=== PATIENT | male | born 1965 | race Caucasian/White ===

== ENCOUNTER 2019-05-30 08:47 | Emergency (ER) | payer MEDICARE, MEDICAID, SELFPAY ==
--- NOTE | 2019-05-30 08:48 | ED_ITS ---
Entered by Jess Olmedo, acting as scribe for Brock Bruce MD HPI - General Adult General: Chief complaint: Eye Problems Stated complaint: BLURRY VISION Time Seen by Provider: 05/30/19 08:48 Source: patient and EMS Mode of arrival: EMS Limitations: no limitations History of Present Illness: HPI narrative: 54 yo male presents with R vision problems. pt states last night he was at a auction and he got something in his eye. pt states his eye today has been blurry and it is painful to open. pt R eye is watery. pt denies any other symptoms at this time. complaint: R eye blurry Onset (ago): day(s) (last night) Location: eyes Radiation: non-radiation Severity: moderate Quality: burning Pain Consistency: constant Relieving factors: none Exacerbating factors: movement (of R eye) Associated symptoms: Reports no associated symptoms; Deny chest pain, dyspnea, headache(s), nausea, rash or vomiting Treatments prior to arrival: none Review of Systems Const: Denies: fever, chills, body aches or change in appetite ENMT: Denies: throat pain or dental pain Card: Denies: chest pain Resp: Denies: shortness of breath GI: Denies: abdominal pain, nausea, vomiting or diarrhea : Denies: painful urination Musc: Denies: neck pain or back pain Skin/Breast: Denies: rash Neuro: Denies: headache Psych: Denies: depression Kash/Lymph: Denies: easy bruising All/Imm: Denies: hives PFSH ED PFSH: Statuses (acute, chronic, etc) shown below reflect problem list status as previously entered and may not be historically accurate Medical History (Updated 05/30/19 @ 09:20 by Brock Bruce MD) Hypothyroidism, unspecified (Acute) Surgical History (Updated 05/27/19 @ 13:46 by Raymond Woo MD) History of esophagogastroduodenoscopy (EGD) (Acute) History of nasal septoplasty (Acute) History of vasectomy (Acute) Hx of decompressive lumbar laminectomy (Acute) Social History (Updated 05/27/19 @ 13:24 by JU Gutiérrez) Smoking and tobacco status: never smoked Alcohol intake: current Alcohol intake frequency: few times a month Housing: House Marital status: Single Number of children: 1 Current occupational status: disabled History of recent travel: No Physical Exam Const: COMMON NORMALS: no apparent distress, oriented x3 and healthy appearing HENMT: COMMON NORMALS: normocephalic and head/scalp atraumatic HEAD & SCALP: normocephalic and atraumatic Eye: OTHER: abrasion to right cornea under fluoroschein. occular pressure 18mmhg Neck/C-Spine: COMMON NORMALS: full ROM and supple Chest: COMMONS NORMALS: inspection of chest normal and palpation of chest normal Resp: COMMON NORMALS: normal respiratory effort, no retractions, no use of accessory muscles and clear to auscultation bilaterally AUSCULTATION: clear to auscultation bilaterally Cardio: COMMON NORMALS: regular rate, regular rhythm and no murmurs RATE: regular rate RHYTHM: regular rhythm GI: COMMON NORMALS: normal to inspection, nondistended, normoactive bowel sounds, soft to palpation, non-tender and no masses PALPATION: Yes soft Extremity: COMMON NORMALS: normal to inspection and full ROM Neuro: COMMON NORMALS: oriented x3, moves all extremities and no focal motor deficits Psych: COMMON NORMALS: mental status grossly normal, thought process normal and cooperative THOUGHT PROCESS: normal thought process Skin: COMMON NORMALS: no rashes or lesions noted and no wounds GENERAL SKIN EXAM: no rashes or lesions noted Course Vital Signs: Vital signs: Vital Signs Temperature 98.1 F 05/30/19 08:51 Pulse Rate 83 05/30/19 08:51 Respiratory Rate 18 05/30/19 08:51 Blood Pressure 131/89 05/30/19 08:51 Pulse Oximetry 99 05/30/19 08:51 MDM - General Adult MDM Narrative: Medical decision making narrative: Patient presents here with eye pain with likely abrasion. Patient's intraocular pressure here is normal. Pain is relieved with tetracaine. 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 He is to return if worsening. Discharge Plan Discharge Patient Disposition: Home, Self-Care Clinical Impression: Corneal abrasion Qualifiers: Encounter type: initial encounter Laterality: right Qualified Code(s): S05.01XA - Injury of conjunctiva and corneal abrasion without foreign body, right eye, initial encounter Condition: Stable Prescriptions: New erythromycin 5 mg/gram (0.5 %) ointment 1 applic ophthalmic (eye) Q6H 7 Days Qty: 3.5 RF: 0 No Action temazepam [Restoril] 30 mg capsule 30 mg PO .at bedtime Qty: 30 RF: 5 citalopram 40 mg tablet 40 mg PO QDAY Qty: 90 RF: 3 buspirone 15 mg tablet 10 mg PO BID RF: 0 metoprolol succinate 25 mg capsule,sprinkle,ER 24hr 25 mg PO QDAY RF: 0 tamsulosin 0.4 mg capsule 0.4 mg PO QDAY RF: 0 oxybutynin chloride 10 mg tablet extended release 24hr 10 mg PO QDAY RF: 0 aspirin 325 mg tablet 325 mg PO QDAY RF: 0 ibuprofen 600 mg tablet 600 mg PO Q6H PRNRF: 0 Discharge Orders: Discharge Order (Routine); Ordered 05/30/19 Ordered By: Brock Bruce Referrals: Raymond Woo MD [Primary Care Provider] - Jose Goldberg MD [Physician] - 4-7 days Discharge Diet: Advance as tolerated Discharge Activity: Resume usual activity Patient Instructions: Corneal Abrasion (ED) Coding Level of Care Code ED Combination Window Installer for Chg Fwd Exam Problem Focused The documentation recorded by the Honorio patel Bridget Annette, accurately reflects the service I personally performed and the decisions made by Janis giraldo Korby, MD May 30, 2019 08:47
[2019-05-30 08:51] VITALS: BP 131/89; PULSE 83; RESP 18; TEMP 36.7; O2SAT 99; BMI 26.0
[2019-05-30] MEDS: tetracaine 0.5% Op Soln 4 mL Btl 1 DROP EYE-BOTH (09:03)
[2019-05-30] MEDS: fluorescein 1 mg Strip EYE-BOTH (09:05)
--- NOTE | 2019-05-30 09:13 | PC.NURSE ---
Visual acuity test performed on patient. Patient can identify objects with left eye, right eye and then both eyes from 3-6 feet away. Patient identifies number of fingers correctly from 3 feet away with left, right, and both eyes. Left eye is reported as blurry and tests 20/70 without his glasses on. Right eye tests at 20/25 without his glasses. Both eyes test 20/25 without glasses on. Patient reports decrease in pain/discomfort in the left eye after drops are applied.
[2019-05-30 09:34] VITALS: BP 131/89; PULSE 72; RESP 16; TEMP 36.6; O2SAT 97
== END 2019-05-30 09:36 | disposition home or self-care (01) ==
PROVIDERS: Emergency Provider Emergency Medicine; Family Provider Internal Medicine; PCP Internal Medicine
DX: S05.01XA Injury of conjunctiva and corneal abrasion without foreign body, right eye, initial encounter (principal); X58.XXXA Exposure to other specified factors, initial encounter; Z79.82 Long term (current) use of aspirin
CPT/HCPCS: 99281; 99283

== ENCOUNTER 2019-10-21 09:01 | Day surgery (SDC) | payer MEDICARE, MEDICAID, SELFPAY ==
[2019-10-13 13:38] VITALS: BMI 23.1
[2019-10-21] VITALS (8 sets, daily range): BP systolic 113–129; BP diastolic 75–88; PULSE 70–77; RESP 17–24; TEMP 36.2–36.4; O2SAT 97–100
[2019-10-21] MEDS: sodium chloride 0.9% 1,000 ML 100 ML IV (09:25)
--- NOTE | 2019-10-21 09:46 | ANES.PREANE2 ---
Pre-Anesthetic Assessment Pre-Anesthetic Assessment: Height/Weight: Height 1.8 m Weight 75.296 kg Temp Pulse Resp BP Pulse Ox 97.1 F L 77 20 H 119/77 97 10/21/19 09:13 10/21/19 09:13 10/21/19 09:13 10/21/19 09:13 10/21/19 09:13 Preop Diagnosis: Left medial meniscal Proposed Procedure: Operation Date: 10/14/19 09:10 Proposed Procedures p Left knee arthroscopy with medial meniscus repair (39632) versus meniscectomy (31728) S83.207A(Left) - Jag Mohan MD Operation Date: 10/21/19 10:45 Proposed Procedures p Knee Arthroscopy with medial menisucus repair versus meniscectomy 37105 52679 S83.207A(Left) - Jag Mohan MD Familial anesthetic complications: None Was Beta Uriel taken within 24 hours: N/A Last intake: Intake Last Liquid Date 10/20/19 Last Liquid Time 23:55 Last Solid Date 10/20/19 Last Solid Time 23:55 Social: Social History: No alcohol and No tobacco Exam: Pre-Anes Outpt Exam: alert, oriented x 3, clear to auscultation bilaterally and regular rate & rhythm Airway: Cervical ROM: WNL MP: 2 Dentition: False Pulmonary: Pulmonary: None reported CV/HEM: CV/HEM: PR Comments: 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 is pacer dependent (I'd only live 10 minutes without one) - will place magnet : : None reported Hepatic: Hepatic: None reported GI: GI: None reported Metabolic: Metabolic: None reported Musc/skel: Musc/skel: Fibromyalgia Neuropsych: Neuropsych: None reported Anesthetic Plan: ASA status: 3 Anesthesia: General Risk of > 500 ml blood loss (7ml/kg in children): No Meds/Allergies Current Medications: Current Medications Generic Name Dose Route Start Last Admin Trade Name Freq PRN Reason Stop Dose Admin Sodium Chloride 1,000 mls @ 100 m ls/hr 10/21/19 08:45 10/21/19 09:25 Sodium Chloride 0.9% IV 10/22/19 08:44 100 mls/hr .Q10H ROSETTA Administration PFSH Anesthesia PFSH: Medical History (Updated 10/19/19 @ 09:47 by HOLDEN Mendiola) Erectile dysfunction Hypothyroidism, unspecified Lower urinary tract symptoms OAB (overactive bladder) Pacemaker Surgical History History of esophagogastroduodenoscopy (EGD) History of heart valve repair History of nasal septoplasty History of shoulder surgery History of tonsillectomy History of vasectomy Hx of decompressive lumbar laminectomy S/P appendectomy Family History Mother Tick fever Father Heart disease CHF (congestive heart failure) Other Diabetes Social History Smoking and tobacco status: never smoked Alcohol intake: current Alcohol intake frequency: few times a month Adopted: No Caregiver/support person: No Lives independently: Yes Housing: House Marital status: Single Number of children: 1 Current occupational status: disabled History of recent travel: No Current gender identity: Male Data Anesthesia Cardiac Studies: No Data to Display
--- NOTE | 2019-10-21 10:38 | W.PM.OPSUD ---
Surgery/Procedure H&P Update DATE OF PROCEDURE: October 21, 2019 DATE H&P PERFORMED: 10/06/19 PREOP DIAGNOSIS: Left medial meniscal PLANNED PROCEDURE: Operation Date: 10/14/19 09:10 Proposed Procedures p Left knee arthroscopy with medial meniscus repair (24436) versus meniscectomy (47657) S83.207A(Left) - Jag Mohan MD Operation Date: 10/21/19 10:45 Proposed Procedures p Knee Arthroscopy with medial menisucus repair versus meniscectomy 41344 68393 S83.207A(Left) - Jag Mohan MD
[2019-10-21] MEDS: clindamycin 600 MG/50 ML PREMIX 100 MG IV (10:41)
[2019-10-21] MEDS: morphine 4 mg/mL SDV 1 mL 8 MG XX (11:05)
--- NOTE | 2019-10-21 11:26 | PM.OP ---
Operative Report Date of procedure: October 21, 2019 Pre-op Diagnosis: Left medial meniscal Post-op diagnosis: other (Normal left knee) Post-op Findings: No meniscal tearing or significant chondromalacia Procedure Done: Diagnostic arthroscopy left knee Pathology: none sent Surgeon: Jag Mohan Anesthesia: General Estimated blood loss (mL): 5 Findings: Patient had no evidence of meniscal tearing. He had no significant chondromalacia. There was no damage to the internal stabilizing ligaments. Condition: stable Disposition: PACU Procedure: The patient was taken to the operating room and given a general anesthesia. He was prepped and draped in the supine position with a tourniquet on the left thigh. The knee was infiltrated with 30 cc of 0.5% Marcaine and 10 mg of morphine. The leg was prepped and draped in the usual fashion and a timeout performed. The knee was entered through standard inferior medial and inferior lateral portal. The diagnostic portion arthroscopy was accomplished essentially no abnormal findings were noted. Particular attention was paid to the abnormal meniscus per MRI and it was carefully probed and found to be free of tearing. The scope was removed. Portals were closed with 3-0 Prolene. Sterile dressings were applied. The patient was extubated taken recovery room in stable condition.
--- NOTE | 2019-10-21 11:30 | SUR.PHASEI ---
1124 PATIENT TO PACU. DENIES PAIN. RR EVEN AND UNLABORED. DRESSING TO LEFT KNEE INTACT WITH OLIVIA BANDAGE. LEFT PEDAL PULSE STRONG AND MARKED.
--- NOTE | 2019-10-21 11:50 | SUR.PHASEI ---
1146 PATIENT TO OPS. TALKATIVE, DENIES PAIN. TOLERATING ICE CHIPS. DRESSING INTACT TO LEFT KNEE.
--- NOTE | 2019-10-21 12:28 | PC.NURSE ---
PT STATED HE ALREADY HAD CRUTCHES AT HOME.
== END 2019-10-21 12:15 | disposition home or self-care (01) ==
LOC: OR 12:37
PROVIDERS: PCP Internal Medicine; Visit Provider Orthopaedic Surgery
PROC: (CPT 29870; principal; 2019-10-14 09:05)
DX: M25.562 Pain in left knee (principal); Z79.891 Long term (current) use of opiate analgesic; E03.9 Hypothyroidism, unspecified; Z95.0 Presence of cardiac pacemaker; M79.7 Fibromyalgia
CPT/HCPCS: 29870; 12345; 96365; J2001; J2270; J2704; J3010; J3490; J7030

== ENCOUNTER → 2019-12-09 12:58 | Outpatient (BNVA) | payer MEDICARE, MEDICAID, SELFPAY | PROVIDERS: PCP Internal Medicine; Visit Provider Urology | DX: R39.9 Unspecified symptoms and signs involving the genitourinary system (principal) | CPT/HCPCS: 81001 ==

== ENCOUNTER → 2020-05-11 15:02 | Outpatient (BNVA) | payer MEDICARE, MEDICAID, SELFPAY | PROVIDERS: Family Provider Internal Medicine; PCP Internal Medicine; Visit Provider Urology | DX: R39.9 Unspecified symptoms and signs involving the genitourinary system (principal); N40.1 Benign prostatic hyperplasia with lower urinary tract symptoms; N32.81 Overactive bladder; N52.9 Male erectile dysfunction, unspecified | CPT/HCPCS: 81003 ==

== ENCOUNTER → 2021-05-09 15:25 | Outpatient (BNVA) | payer MEDICARE, MEDICAID, SELFPAY | PROVIDERS: Family Provider Internal Medicine; PCP Internal Medicine; Visit Provider Urology | DX: N40.1 Benign prostatic hyperplasia with lower urinary tract symptoms (principal); R39.9 Unspecified symptoms and signs involving the genitourinary system; N52.9 Male erectile dysfunction, unspecified; N32.89 Other specified disorders of bladder | CPT/HCPCS: 81003 ==

== ENCOUNTER → 2021-07-26 14:22 | Outpatient (BNVA) | payer MEDICARE, MEDICAID, SELFPAY | PROVIDERS: Family Provider Internal Medicine; PCP Internal Medicine; Visit Provider Internal Medicine | DX: E03.9 Hypothyroidism, unspecified (principal); F32.9 Major depressive disorder, single episode, unspecified | CPT/HCPCS: 80053; 84443 ==

== ENCOUNTER → 2021-09-13 14:42 | Outpatient (BNVA) | payer MEDICARE, MEDICAID, SELFPAY | PROVIDERS: Family Provider Internal Medicine; PCP Internal Medicine; Visit Provider Internal Medicine Cardiovascular Disease | DX: I07.1 Rheumatic tricuspid insufficiency (principal); Z95.0 Presence of cardiac pacemaker; E03.9 Hypothyroidism, unspecified; Z98.890 Other specified postprocedural states; Z86.79 Personal history of other diseases of the circulatory system | CPT/HCPCS: 99213; 99214 ==

== ENCOUNTER → 2021-12-29 10:25 | Outpatient (BNVA) | payer MEDICARE, MEDICAID, SELFPAY | PROVIDERS: Family Provider Internal Medicine; PCP Internal Medicine; Visit Provider Internal Medicine Cardiovascular Disease | DX: Z45.010 Encounter for checking and testing of cardiac pacemaker pulse generator [battery] (principal) | CPT/HCPCS: 93280 ==

== ENCOUNTER 2022-01-03 10:47 | Emergency (ER) | payer MEDICARE, MEDICAID, SELFPAY ==
--- NOTE | 2022-01-03 10:55 | XR_ITS ---
WS: [id number] PA chest, 01/03/2022 Clinical Data: dyspnea Comparison: PA and lateral chest, 09/10/2019. Findings: No nodules, masses or effusions are seen. No pneumonia or pneumothorax is seen. There is el evation of the left diaphragm. There are midline sternotomy sutures and a 2-lead pacemaker unchanged in position. The aortic arch and descending thoracic aorta show mild tortuosity. There are small lisbeth tor leads on the chest wall. XR/XR chest 1V 42075 Impression: Atherosclerosis and permanent pacemaker.
[2022-01-03 11:34] VITALS: BP 107/70; PULSE 71; RESP 18; TEMP 37.7; O2SAT 96
--- NOTE | 2022-01-03 11:38 | ECG_ITS ---
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 Measurements Intervals [place] Rate: 74 P: CT: QRS: -79 QRSD: 165 T: 89 QT: 423 QTc: 470 Interpretive Statements ELECTRONIC VENTRICULAR PACEMAKER Compared to ECG 06/25/2017 17:54:03 Atrial-paced complex(es) or rhythm no longer present Electronically Signed On 01-03-2022 19:44:59 CDT by Taras Soares M.D. [id number]
[2022-01-03 12:11] LABS: Basophils % 0.2 %; Hematocrit 38.5 % (42.0-52.0); Hemoglobin 12.5 g/dL (11.7-16.6); Mean Corpuscular HGB Conc 32.5 g/dL (30.0-36.0); Mean Corpuscular Hemoglobin 32.8 pg (28.0-34.0); Monocytes # 0.6 10^3/uL (0.2-0.9); Monocytes % 9.2 %; Neutrophils # 4.57 10^3/uL (1.8-7.7); Neutrophils % 74.1 %; Nucleated Red Blood Cells % 0 %; Platelet Count 102 10^3/cmm (130-400); Red Blood Count 3.81 10^6/uL (4.1-5.3); Red Cell Distribution Width 12.7 % (12.1-15.1); White Blood Count 6.2 10^3/uL (4.0-10.0)
[2022-01-03 12:47] LABS: Blood Urea Nitrogen 13 mg/dL (6-20); Calcium 9.2 mg/dL (8.5-10.5); Carbon Dioxide 22 mmol/L (22-29); Chloride 103 mmol/L (98-107); Glomerular Filtration Rate 56.9 mL/min (90-130); Glucose 97 mg/dL (65-115); NT Pro B Type Natriuretic Pept 1570 pg/mL (0-125); Osmolality Calculated 284 mOsm/kg (285-295); Sodium 137 mmol/L (136-145)
[2022-01-03 12:49] LABS: Anion Gap 16.4 (5-19); Potassium 4.4 mmol/L (3.5-5.1)
--- NOTE | 2022-01-03 12:55 | ECG_ITS ---
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 Measurements Intervals [place] Rate: 71 P: IN: QRS: -78 QRSD: 173 T: 99 QT: 434 QTc: 473 Interpretive Statements ELECTRONIC VENTRICULAR PACEMAKER Compared to ECG 01/03/2022 11:38:06 No significant changes Electronically Signed On 01-03-2022 19:50:50 CDT by Taras Soares M.D. [id number]
[2022-01-03 13:48] LABS: Troponin(5th) Baseline 12 ng/L (0-15)
--- NOTE | 2022-01-03 14:00 | PC.NURSE ---
EPT PLACED ON CONTINUOUS NIBP, SPO2, AND CM
[2022-01-03 15:14] VITALS: BP 161/86; PULSE 80; O2SAT 96
[2022-01-03 15:17] LABS: Troponin 5 2HR 10.42 ng/L (0-15)
--- NOTE | 2022-01-03 15:21 | W.ED.GENADLT ---
Documented by User: Pedro Romo MD 01/18/22 23:51 HPI - General Adult General: Chief complaint: General Medical Stated complaint: SOB Time Seen by Provider: 01/03/22 15:21 History of Present Illness: Mr. Aquino is a 56-year-old gentleman with history of bioprosthetic valve and pacemaker placement who presents to the emergency department due to sore throat and generalized symptoms. Onset of symptoms was a few days ago and subacute. He endorses generalized malaise associate with sore throat. Initially with this was mild and only present with swallowing however is since progressed to be moderate to severe present at rest. He describes choking sensation when drinking water and a scratchy voice. Course has worsened. No other specific changes in health, exacerbating, or alleviating factors identified. Onset (ago): day(s) Severity: moderate Associated symptoms: Reports malaise, weakness and other Review of Systems General: Reports: 10 or more systems reviewed and unremarkable except in HPI and below Const: Reports: malaise ENMT: Denies: uvular edema PFSH ED PFSH: Medical History Acute meniscal tear of left knee Atrial flutter by electrocardiogram Erectile dysfunction Hypothyroidism, unspecified Insomnia, unspecified Lower urinary tract symptoms OAB (overactive bladder) Pacemaker Restless legs syndrome Tricuspid valve regurgitation Surgical History H/O arthroscopy of left knee History of esophagogastroduodenoscopy (EGD) History of heart valve repair History of nasal septoplasty History of shoulder surgery History of tonsillectomy History of vasectomy Hx of decompressive lumbar laminectomy S/P appendectomy S/P tricuspid valve replacement Family History Mother , at age 80 Tick fever Father , at age 87 Heart disease CHF (congestive heart failure) Other Diabetes Social History Smoking and tobacco status: never smoked Alcohol intake: current Alcohol intake frequency: few times a month Adopted: No Caregiver/support person: No Lives independently: Yes Housing: House Marital status: Number of children: 1 Current occupational status: disabled History of recent travel: No Current gender identity: Male Physical Exam Const: COMMON NORMALS: alert GENERAL APPEARANCE: cooperative and well developed HENMT: COMMON NORMALS: normocephalic and atraumatic HEAD & SCALP: normocephalic and atraumatic THROAT: uvula midline and posterior oropharynx abnormal erythema; no uvular edema Eye: COMMON NORMALS: conjunctivae normal CONJUNCTIVA: Yes conjunctivae normal SCLERA: sclerae normal Neck/C-Spine: COMMON NORMALS: supple GENERAL: Yes trachea midline Resp: COMMON NORMALS: normal respiratory effort and clear to auscultation bilaterally EFFORT & INSPECTION: Yes able to speak in complete sentences AUSCULTATION: clear to auscultation bilaterally Cardio: COMMON NORMALS: regular rate and regular rhythm RATE: regular rate RHYTHM: regular rhythm GI: COMMON NORMALS: Soft to palpation PALPATION: Yes Soft to palpation and No Tenderness to palpation present (GI) Extremity: GENERAL: Yes normal exam except as noted and No edema Neuro: COMMON NORMALS: moves all extremities SENSORIUM/ORIENTATION: Yes alert and No Orientation impaired Psych: COMMON NORMALS: mental status grossly normal and Normal thought process present THOUGHT PROCESS: Normal thought process present Course Vital Signs: Vital signs: Vital Signs Temperature 100 F H 01/03/22 11:34 Pulse Rate 84 01/03/22 17:14 Respiratory Rate 18 01/03/22 11:34 Blood Pressure 141/83 01/03/22 17:14 Pulse Oximetry 97 01/03/22 17:14 Oxygen Delivery Me thod 01/03/22 16:14 [facility] - General Adult Medical Decision Making 56-year-old gentleman presenting with sore throat and generalized symptoms. 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 EKG shows paced rhythm. Fluids, antiemetic, Decadron ordered. Labs notable for no leukocytosis, normal hemoglobin, mild thrombocytopenia without evidence of bleeding diathesis. Metabolic panel with normal electrolytes. COVID-positive. Given patient's reported severity of symptoms including difficulty tolerating oral secretions and voice change CT imaging ordered and pending at time of handoff to Dr. Bruce with likely plan for discharge. Patient presents for generalized weakness loss of difficulty swallowing he is COVID-positive likely causing his symptoms CT of his neck care is normal patient is stable for discharge he is to follow-up with PCP and return if worsening he understands agrees to plan. Medical Records I reviewed the patient's medical records. Lab Data I reviewed the patient's lab results. : 01/03/22 11:58 01/03/22 11:58 Radiology Impressions Chest X-Ray 01/03/22 10:55 Impression: Atherosclerosis and permanent pacemaker. Neck CT 01/03/22 16:56 IMPRESSION: No acute findings. Laboratory Results WBC 6.2 10^3/uL (4.0-10.0) 01/03/22 11:58 RBC 3.81 10^6/uL (4.1-5.3) L 01/03/22 11:58 Hgb 12.5 g/dL (11.7-16.6) 01/03/22 11:58 Hct 38.5 % (42.0-52.0) L 01/03/22 11:58 MCV 101.0 fl (80-94) H 01/03/22 11:58 MCH 32.8 pg (28.0-34.0) 01/03/22 11:58 MCHC 32.5 g/dL (30.0-36.0) 01/03/22 11:58 RDW 12.7 % (12.1-15.1) 01/03/22 11:58 Plt Count 102 10^3/cmm (130-400) L 01/03/22 11:58 MPV 12.0 fL (7.4-10.4) H 01/03/22 11:58 Neut % (Auto) 74.1 % 01/03/22 11:58 Lymph % (Auto) 16.0 % 01/03/22 11:58 Talbot % (Auto) 9.2 % 01/03/22 11:58 Eos % (Auto) 0.0 % 01/03/22 11:58 Baso % (Auto) 0.2 % 01/03/22 11:58 Neut # (Auto) 4.57 10^3/uL (1.8-7.7) 01/03/22 11:58 Lymph # (Auto) 1.0 10^3/uL (0.8-4.8) 01/03/22 11:58 Talbot # (Auto) 0.6 10^3/uL (0.2-0.9) 01/03/22 11:58 Eos # (Auto) 0.0 10^3/uL (0.0-0.8) 01/03/22 11:58 Baso # (Auto) 0.0 10^3/uL (0.0-0.1) 01/03/22 11:58 Nucleated RBC % (auto) 0 % 01/03/22 11:58 Nucleated RBCs # 0.0 /100WBC 01/03/22 11:58 Sodium 137 mmol/L (136-145) 01/03/22 11:58 Potassium 4.4 mmol/L (3.5-5.1) 01/03/22 11:58 Chloride 103 mmol/L (98-107) 01/03/22 11:58 Carbon Dioxide 22 mmol/L (22-29) 01/03/22 11:58 Anion Gap 16.4 (5-19) 01/03/22 11:58 BUN 13 mg/dL (6-20) 01/03/22 11:58 Creatinine 1.3 mg/dL (0.7-1.2) H 01/03/22 11:58 GFR Calculation 56.9 mL/min (90-130) L 01/03/22 11:58 Glucose 97 mg/dL (65-115) 01/03/22 11:58 Calculated Osmolality 284 mOsm/kg (285-295) L 01/03/22 11:58 Calcium 9.2 mg/dL (8.5-10.5) 01/03/22 11:58 Troponin T Baseline 12 ng/L (0-15) 01/03/22 11:58 Troponin T 120 Minute 10.42 ng/L (0-15) 01/03/22 14:18 Delta Troponin T -1.58 ABS# (0-10) L 01/03/22 14:18 Troponin T Hi Sens 6Hr 12.93 ng/L (0-15) 01/03/22 18:06 Troponin T Hi Sens 6Hr Delta 0.93 ng/L (0-12) 01/03/22 18:06 NT-Pro-B Natriuret Pep 1570 pg/mL (0-125) H 01/03/22 11:58 SARS-CoV-2 Ag (Rapid) Positive (Negative) H 01/03/22 16:20 Group A Strep Rapid Negative (Negative) 01/03/22 16:20 Discharge Plan Discharge Patient Disposition: Home Clinical Impression: COVID-19, Pharyngitis, Acute viral syndrome, Thrombocytopenia Condition: Stable Prescriptions: New ondansetron 4 mg tablet,disintegrating 4 mg PO Q6H PRN (Reason: nausea and vomiting) Qty: 14 0RF No Action carisoprodol 350 mg tablet 350 mg PO QID vitamin B complex [B Complex-Vitamin B12] Tablet 1 tab PO DAILY hydrocodone-acetaminophen 10-325 mg tablet 1 tab PO Q4H PRN (Reason: Pain) multivitamin Tablet 1 tab PO DAILY ascorbate calcium (vitamin C) 500 mg tablet 500 mg PO DAILY ibuprofen 600 mg tablet 600 mg PO BID metoprolol succinate 25 mg tablet extended release 24 hr 25 mg PO DAILY 90 Days Qty: 90 3RF aripiprazole [Abilify] 5 mg tablet 5 mg PO DAILY Qty: 90 3RF citalopram 40 mg tablet 40 mg PO BEDTIME Qty: 90 3RF Discharge Orders: Discharge ED (Routine); Ordered 01/03/22 Ordered By: Brock Bruce Referrals: Raymond Woo MD [Primary Care Provider] - Discharge Diet: Advance as tolerated Discharge Activity: Resume usual activity Patient Instructions: Pharyngitis (ED), COVID-19 (Coronavirus Disease 2019) (ED) Activity Restrictions/Additional Instructions: Thank you for visiting the emergency department. You were seen and evaluated for sore throat and generalized illness. You found to have COVID-19 which likely explains her symptoms. The treatment for this is largely symptomatic. You may use [id number] medications however please ensure that you are not exceed the the daily recommended dosage and please keep in mind that many namebrand medications contain the same active ingredients. Please self quarantine and use good hand hygiene and masks. Please follow-up with a primary care provider. Return to the emergency department for worsening symptoms or anything else that you are concerned about a feel needs emergency department evaluation. Coding Level of Care Code ED Taffy Puller for Magy Lee Documented by User: Brock Bruce MD 01/03/22 20:29 HPI - General Adult General: Chief complaint: General Medical Stated complaint: SOB Time Seen by Provider: 01/03/22 15:21 PFSH ED PFSH: Medical History Acute meniscal tear of left knee Atrial flutter by electrocardiogram Erectile dysfunction Hypothyroidism, unspecified Insomnia, unspecified Lower urinary tract symptoms OAB (overactive bladder) Pacemaker Restless legs syndrome Tricuspid valve regurgitation Surgical History H/O arthroscopy of left knee History of esophagogastroduodenoscopy (EGD) History of heart valve repair History of nasal septoplasty History of shoulder surgery History of tonsillectomy History of vasectomy Hx of decompressive lumbar laminectomy S/P appendectomy S/P tricuspid valve replacement Family History Mother , at age 80 Tick fever Father , at age 87 Heart disease CHF (congestive heart failure) Other Diabetes Social History Smoking and tobacco status: never smoked Alcohol intake: current Alcohol intake frequency: few times a month Adopted: No Caregiver/support person: No Lives independently: Yes Housing: House Marital status: Number of children: 1 Current occupational status: disabled History of recent travel: No Current gender identity: Male Course Vital Signs: Vital signs: Vital Signs Temperature 100 F H 01/03/22 11:34 Pulse Rate 84 01/03/22 17:14 Respiratory Rate 18 01/03/22 11:34 Blood Pressure 141/83 01/03/22 17:14 Pulse Oximetry 97 01/03/22 17:14 Oxygen Delivery Me thod 01/03/22 16:14 MDM - General Adult Medical Decision Making Patient presents for generalized weakness loss of difficulty swallowing he is COVID-positive likely causing his symptoms CT of his neck care is normal patient is stable for discharge he is to follow-up with PCP and return if worsening he understands agrees to plan. Lab Data : 01/03/22 11:58 01/03/22 11:58 Radiology Impressions Chest X-Ray 01/03/22 10:55 Impression: Atherosclerosis and permanent pacemaker. Neck CT 01/03/22 16:56 IMPRESSION: No acute findings. Laboratory Results WBC 6.2 10^3/uL (4.0-10.0) 01/03/22 11:58 RBC 3.81 10^6/uL (4.1-5.3) L 01/03/22 11:58 Hgb 12.5 g/dL (11.7-16.6) 01/03/22 11:58 Hct 38.5 % (42.0-52.0) L 01/03/22 11:58 MCV 101.0 fl (80-94) H 01/03/22 11:58 MCH 32.8 pg (28.0-34.0) 01/03/22 11:58 MCHC 32.5 g/dL (30.0-36.0) 01/03/22 11:58 RDW 12.7 % (12.1-15.1) 01/03/22 11:58 Plt Count 102 10^3/cmm (130-400) L 01/03/22 11:58 MPV 12.0 fL (7.4-10.4) H 01/03/22 11:58 Neut % (Auto) 74.1 % 01/03/22 11:58 Lymph % (Auto) 16.0 % 01/03/22 11:58 Talbot % (Auto) 9.2 % 01/03/22 11:58 Eos % (Auto) 0.0 % 01/03/22 11:58 Baso % (Auto) 0.2 % 01/03/22 11:58 Neut # (Auto) 4.57 10^3/uL (1.8-7.7) 01/03/22 11:58 Lymph # (Auto) 1.0 10^3/uL (0.8-4.8) 01/03/22 11:58 Talbot # (Auto) 0.6 10^3/uL (0.2-0.9) 01/03/22 11:58 Eos # (Auto) 0.0 10^3/uL (0.0-0.8) 01/03/22 11:58 Baso # (Auto) 0.0 10^3/uL (0.0-0.1) 01/03/22 11:58 Nucleated RBC % (auto) 0 % 01/03/22 11:58 Nucleated RBCs # 0.0 /100WBC 01/03/22 11:58 Sodium 137 mmol/L (136-145) 01/03/22 11:58 Potassium 4.4 mmol/L (3.5-5.1) 01/03/22 11:58 Chloride 103 mmol/L (98-107) 01/03/22 11:58 Carbon Dioxide 22 mmol/L (22-29) 01/03/22 11:58 Anion Gap 16.4 (5-19) 01/03/22 11:58 BUN 13 mg/dL (6-20) 01/03/22 11:58 Creatinine 1.3 mg/dL (0.7-1.2) H 01/03/22 11:58 GFR Calculation 56.9 mL/min (90-130) L 01/03/22 11:58 Glucose 97 mg/dL (65-115) 01/03/22 11:58 Calculated Osmolality 284 mOsm/kg (285-295) L 01/03/22 11:58 Calcium 9.2 mg/dL (8.5-10.5) 01/03/22 11:58 Troponin T Baseline 12 ng/L (0-15) 01/03/22 11:58 Troponin T 120 Minute 10.42 ng/L (0-15) 01/03/22 14:18 Delta Troponin T -1.58 ABS# (0-10) L 01/03/22 14:18 Troponin T Hi Sens 6Hr 12.93 ng/L (0-15) 01/03/22 18:06 Troponin T Hi Sens 6Hr Delta 0.93 ng/L (0-12) 01/03/22 18:06 NT-Pro-B Natriuret Pep 1570 pg/mL (0-125) H 01/03/22 11:58 SARS-CoV-2 Ag (Rapid) Positive (Negative) H 01/03/22 16:20 Group A Strep Rapid Negative (Negative) 01/03/22 16:20 Discharge Plan Discharge Patient Disposition: Home Clinical Impression: COVID-19, Pharyngitis, Acute viral syndrome, Thrombocytopenia Condition: Stable Prescriptions: New ondansetron 4 mg tablet,disintegrating 4 mg PO Q6H PRN (Reason: nausea and vomiting) Qty: 14 0RF No Action carisoprodol 350 mg tablet 350 mg PO QID vitamin B complex [B Complex-Vitamin B12] Tablet 1 tab PO DAILY hydrocodone-acetaminophen 10-325 mg tablet 1 tab PO Q4H PRN (Reason: Pain) multivitamin Tablet 1 tab PO DAILY ascorbate calcium (vitamin C) 500 mg tablet 500 mg PO DAILY ibuprofen 600 mg tablet 600 mg PO BID metoprolol succinate 25 mg tablet extended release 24 hr 25 mg PO DAILY 90 Days Qty: 90 3RF aripiprazole [Abilify] 5 mg tablet 5 mg PO DAILY Qty: 90 3RF citalopram 40 mg tablet 40 mg PO BEDTIME Qty: 90 3RF Discharge Orders: Discharge ED (Routine); Ordered 01/03/22 Ordered By: Brock Bruce Referrals: Raymond Woo MD [Primary Care Provider] - Discharge Diet: Advance as tolerated Discharge Activity: Resume usual activity Patient Instructions: Pharyngitis (ED), COVID-19 (Coronavirus Disease 2019) (ED) Activity Restrictions/Additional Instructions: Thank you for visiting the emergency department. You were seen and evaluated for sore throat and generalized illness. You found to have COVID-19 which likely explains her symptoms. The treatment for this is largely symptomatic. You may use [id number] medications however please ensure that you are not exceed the the daily recommended dosage and please keep in mind that many namebrand medications contain the same active ingredients. Please self quarantine and use good hand hygiene and masks. Please follow-up with a primary care provider. Return to the emergency department for worsening symptoms or anything else that you are concerned about a feel needs emergency department evaluation. Coding Level of Care Code ED Taffy Puller for Magy Lee
[2022-01-03 15:41] LABS: Troponin 5 2HR Delta -1.58 ABS# (0-10)
[2022-01-03] MEDS: dexamethasone 10 mg/mL INJ IVP (16:07)
[2022-01-03] MEDS: promethazine 25 mg/mL SDV 1 mL IM (16:07)
[2022-01-03] MEDS: lactated ringers 1,000 ML 999 ML IV (16:08)
[2022-01-03 16:14] VITALS: BP 131/88; PULSE 70; O2SAT 99
[2022-01-03 16:37] LABS: Rapid Strep A Test Negative (Negative)
[2022-01-03 16:50] LABS: SARS Covid-2 Antigen Positive (Negative)
--- NOTE | 2022-01-03 16:55 | ECG_ITS ---
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 Measurements Intervals [place] Rate: 72 P: MN: QRS: -76 QRSD: 173 T: 101 QT: 438 QTc: 480 Interpretive Statements ELECTRONIC VENTRICULAR PACEMAKER ABNORMAL RHYTHM ECG Compared to ECG 01/03/2022 15:50:11 No significant changes Electronically Signed On 01-03-2022 17:39:13 CDT by Carol Vega M.D. [email or web address]
--- NOTE | 2022-01-03 16:56 | CTR_ITS ---
PROCEDURE INFORMATION: Exam: CT Neck With Contrast Exam date and time: 01/03/2022 6:31 PM Age: 56 years old Clinical indication: Painful swallowing and throat pain; Prior surgery; Surgery date: 6+ months; Surgery type: Tonsils; Additional info: Sore throat, difficulty tolerating liquids TECHNIQUE: Imaging protocol: Computed tomography of the neck with contrast. Radiation optimization: All CT scans at this facility use at least one of these dose optimization techniques: automated exposure control; mA and/or kV adjustment per patient size (includes targeted exams where dose is matched to clinical indication); or iterative reconstruction. Contrast material: OMNIPAQUE 350; Contrast volume: 80 ml; Contrast route: INTRAVENOUS (IV); COMPARISON: CT cervical spine w con [id number] 03/20/2017 11:04 AM RADIATION DOSE METRICS: Total DLP (mGy-cm): 315.81 FINDINGS: Pharynx: Unremarkable. No significant tonsillar enlargement. Larynx: Unremarkable. Epiglottis is normal. Prevertebral and retropharyngeal spaces: Unremarkable. Salivary glands: Normal. Glands are normal in size. Thyroid: Normal. No enlarged or calcified nodules. Lymph nodes: Unremarkable. No lymphadenopathy. Trachea: Visualized trachea is unremarkable. Lungs: Unremarkable as visualized. Bones/joints: Unremarkable. No acute fracture. Soft tissues: Unremarkable. No significant soft tissue swelling. CT/CT neck w con* [id number] IMPRESSION: No acute findings.
[2022-01-03 17:14] VITALS: BP 141/83; PULSE 84; O2SAT 97
[2022-01-03 18:34] LABS: Troponin 5 6HR 12.93 ng/L (0-15)
[2022-01-03 18:58] LABS: Troponin 5 6HR Delta 0.93 ng/L (0-12)
== END 2022-01-03 21:44 | disposition home or self-care (01) ==
PROVIDERS: Emergency Medicine; Emergency Provider Emergency Medicine; PCP Internal Medicine
DX: U07.1 COVID-19 (principal); J02.9 Acute pharyngitis, unspecified; B34.9 Viral infection, unspecified; D69.6 Thrombocytopenia, unspecified; I07.1 Rheumatic tricuspid insufficiency; Z95.0 Presence of cardiac pacemaker; Z95.2 Presence of prosthetic heart valve
CPT/HCPCS: 70491; 71045; 80048; 83880; 84484; 85025; 87081; 87426; 87880; 93005; 96361; 96372; 96374; 99285; J1100; J2550; Q9967

== ENCOUNTER 2022-02-19 12:07 | Outpatient (CLI) | payer MEDICARE, MEDICAID, SELFPAY ==
--- NOTE | 2022-02-19 13:19 | XR_ITS ---
WS: [id number] Exam: XR shoulder LT min 2V* [id number] Date/Time of Exam: 02/19/2022 1:23 PM Reason For Exam: M25.512 - Pain in left shoulder No fracture or dislocation. A cortical defect seen along the greater tuberosity that may represent a Hill-Sachs lesion from previous dislocation. Mild DJD at the AC joint. A cardiac pacer superimposes t he left shoulder. XR/XR shoulder LT min 2V* [id number] IMPRESSION: 1. No fracture or dislocation. 2. Cortical defect along the greater tuberosity humerus that might represent a Hill-Sachs lesion secondary to prior dislocation. Mild degenerative changes.
== END 2022-02-19 12:08 | disposition home or self-care (01) ==
LOC: RAD 12:11
PROVIDERS: PCP Internal Medicine; Visit Provider Nurse Practitioner Family
DX: M25.512 Pain in left shoulder (principal)
CPT/HCPCS: 73030

== ENCOUNTER → 2022-04-13 10:12 | Outpatient (BNVA) | payer MEDICARE, MEDICAID, SELFPAY | PROVIDERS: PCP Internal Medicine; Visit Provider Internal Medicine Cardiovascular Disease | DX: Z45.010 Encounter for checking and testing of cardiac pacemaker pulse generator [battery] (principal) | CPT/HCPCS: 93280 ==

== ENCOUNTER 2022-04-19 12:22 | Outpatient (CLI) | payer MEDICARE, MEDICAID, SELFPAY ==
--- NOTE | 2022-04-19 12:00 | USCV_ITS ---
Benjamin Aquino Age: 56 Gender: M : 1965 Exam Date: 04/19/2022 12:54 Ordering Phys: Rubi Stephenson MD ([email or web address]) Technologist: Vito Palacios Exam Location: [facility] [place] Indication: TVR/AV repair/TR/ Aflutter, pacemaker revision BP: 143 / 97 HR: 70 Rhythm: Sinus Technical Quality: Adequate MEASUREMENTS (Male / Female) Normal Values 2D ECHO LV Diastolic Diameter PLAX 4.5 cm 4.2 - 5.9 / 3.9 - 5.3 cm LV Systolic Diameter PLAX 2.9 cm IVS Diastolic Thickness 0.7 cm 0.6 - 1.0 / 0.6 - 0.9 cm IVS Systolic Thickness 0.9 cm LVPW Diastolic Thickness 0.8 cm 0.6 - 1.0 / 0.6 - 0.9 cm LVPW Systolic Thickness 1.1 cm LVOT Diameter 2.0 cm LV Ejection Fraction 2D Teich 63.6 % LV Ejection Fraction MOD 2C 61.0 % LV Ejection Fraction 2C AL 61.3 % LA Diameter 3.1 cm LA Width 2.8 cm LA Height 4.7 cm RA Width 4.6 cm RA Height 6.3 cm Aorta at Sinotubular Diameter 2.6 cm IVC Diameter 1.8 cm M-MODE Aortic Annulus Diameter 3.0 cm LA Ao Ratio MM 1.0 MV E Point Septal Separation 0.3 cm DOPPLER AV Peak Velocity 117.5 cm/s LVOT Peak Velocity 97.0 cm/s AV Area Cont Eq vti 2.1 cm squared AV Area Cont Eq pk 2.6 cm squared MV Area PHT 5.4 cm squared Mitral E to A Ratio 1.4 MV E' Velocity 79.0 cm/s Mitral E to LV E' Septal Ratio 8.7 TR Peak Velocity 194.1 cm/s TR Peak Gradient 15.1 mmHg TR Mean Velocity 143.5 cm/s TR Mean Gradient 8.7 mmHg TR Velocity Time Integral 44.7 cm TV Peak E Velocity 209.0 cm/s Right Atrial Pressure 3.0 mmHg Pulmonary Artery Systolic Pressu 18.1 mmHg PV Peak Velocity 115.0 cm/s RV Acceleration Time 0.1 s RV Ejection Time 0.3 s RV AcT/ET 0.2 FINDINGS Left Ventricle Normal left ventricular size and systolic function, EF 56 %. Mild left ventricular hypertrophy. No regional wall motion abnormalities. Right Ventricle Possibly of normal size and ejection fraction.catheter/pacemaker wire in the right ventricular cavity. Right Atrium Moderately increased right atrial size. Catheter/pacemaker wire in the right atrial appendage. Left Atrium Normal left atrial size. Mitral Valve Thickened mitral valve. Mild-moderate mitral valve regurgitation. Aortic Valve Trace aortic valve regurgitation. No gross abnormalities noted Tricuspid Valve Bioprosthetic valve in the tricuspid position appears to be well-seated. Valve leaflets are thickened and stenotic. The peak gradient across the valve was 15 mmHg.[id number] tricuspid valve regurgitation. Pulmonic Valve No gross abnormalities noted Pericardium No pericardial effusion. Aorta Normal aortic annulus size. IVC Normal inferior vena cava. CONCLUSIONS Normal left ventricular size and systolic function, EF 56 %. Mild left ventricular hypertrophy. No regional wall motion abnormalities. Moderately increased right atrial size. Thickened mitral valve. Mild-moderate mitral valve regurgitation. Trace aortic valve regurgitation. No gross abnormalities noted. Bioprosthetic valve in the tricuspid position appears to be well-seated. Valve leaflets are thickened and stenotic. The peak gradient across the valve was 15 mmHg. [id number] tricuspid valve regurgitation. There is no pericardial effusion. There are no intracardiac masses. The pacemaker wire is noted in the right atrium right ventricle. Dr Rubi Stephenson MD FACC (Electronically Signed) Final Date: 19 April 2022 20:53 S
== END 2022-04-19 12:23 | disposition home or self-care (01) ==
PROVIDERS: PCP Internal Medicine; Visit Provider Internal Medicine Cardiovascular Disease
DX: I48.92 Unspecified atrial flutter (principal); Z98.890 Other specified postprocedural states; I08.3 Combined rheumatic disorders of mitral, aortic and tricuspid valves; Z45.010 Encounter for checking and testing of cardiac pacemaker pulse generator [battery]; Z95.2 Presence of prosthetic heart valve
CPT/HCPCS: 36415; 80048; 85025; 85610; 86850; 86900; 93306; 99215

== ENCOUNTER 2022-04-26 10:43 | Outpatient (CLI) | payer MEDICARE, MEDICAID, SELFPAY ==
[2022-04-26] VITALS (14 sets, daily range): BP systolic 111–139; BP diastolic 66–92; PULSE 60–71; RESP 14–24; TEMP 36.5–37; O2SAT 93–96; BMI 28.4
--- NOTE | 2022-04-26 12:56 | W.PM.OPSUD ---
Surgery/Procedure H&P Update DATE OF PROCEDURE: April 26, 2022 DATE H&P PERFORMED: 04/19/22 H&P UPDATE INFORMATION: I have reviewed H&P completed within last 30 days, I have examined patient prior to procedure and No changes to prior documentation PREOP DIAGNOSIS: PPM revision PRIMARY INDICATION FOR PROCEDURE: PPM revision. Heart block PLANNED PROCEDURE: Operation Date: 04/26/22 12:00 Proposed Procedures p [id number] Pacemaker Generator at end of life Z95.0,Z45.010,Z86.79,I07.1(Not Applicable) - Rubi Stephenson MD PATIENT REASSESSED PRIOR TO SEDATION, WITH NO CHANGE NOTED: Yes PHYSICAL EXAM: alert, oriented x 3, clear to auscultation bilaterally and regular rate & rhythm AIRWAY EVAL/ANESTHESIA PLAN: normal airway, see other exam findings, ASA III, Monitored Anesthesia, Local Anesthesia, Risks, benefits & alternatives of sedation and/or procedure discussed and Patient agrees to continue as planned
[2022-04-26] MEDS: clindamycin 900 MG/50 ML PREMIX 100 MG IV (17:59)
[2022-04-26] MEDS: HYDROcodone-acetaminophen 10-325 mg Tablet 1 TAB PO (18:08)
--- NOTE | 2022-04-26 19:46 | PC.NURSE ---
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 Covering service notified Dr holguin. Patient presents with post pacemaker generator change. left upper chest dressing and site is clean, dry, intact, no bleeding, swelling or hematoma noted around the upper chest. pt has mild tender to the touch to site,denies SOB. Orders reviewed & will continue to monitor. Patient and/or franchise sales representative oriented to environment, equipment, and informed of the following as found in the admission booklet: patient rights & responsibilities, visitor policy, hand and respiratory hygiene practice. Other education includes: activity restrictions on left upper arm,limited ROM, arm sling, iv antibiotics,pain control, call light use. Patient and/or franchise sales representative teaches back.
--- NOTE | 2022-04-26 20:48 | PM.OP ---
Operative Report Date of procedure: April 26, 2022 Pre-op diagnosis: Preop Diagnosis PPM revision Procedure: PROCEDURE: PACEMAKER REVISION PREOPERATIVE DIAGNOSIS: Pacemaker elective replacement indication. POSTOPERATIVE DIAGNOSIS: Pacemaker elective replacement indication. ESTIMATED BLOOD LOSS: Around less than 5 milliliters. COMPLICATIONS: None. BRIEF HISTORY: The patient is 56-year-old white male who had a permanent pacemaker implantation for high degree AV block/intermittent atrial flutter. The patient was found to have elective replacement indication, during routine office followup evaluation. For further management of patient's condition for the symptomatic bradycardia, the patient required a pacemaker revision. Patient required a dual-chamber pacemaker for symptom relief and the need for AV synchrony The procedure was explained to the patient in detail with the risks and benefits. The risks of bleeding, hematoma, vascular injury, infection and other concomitant complications were explained in detail, which the patient understood well and consented to proceed. PROCEDURES PERFORMED: 1. Explantation of the old pacemaker generator. 2. Implantation of the new generator. The patient brought to the [facility]. The left side of the neck and the subclavian area were cleaned and draped in a sterile fashion. 1% Xylocaine was used for local anesthetic agent. A 2 inch long incision was made just below the previous pacemaker scar. By sharp and blunt dissection, the pacemaker pocket was accessed. The old generator was delivered from the pocket. The generator was detached from the lead. The new Medtronic generator was attached to the lead. The pacemaker pocket was copiously irrigated with vancomycin solution. Complete hemostasis was achieved. The lead was positioned behind the generator and the generator was attached to the pectoralis fascia by suturing with 0 Surgilon. Sponge counts were confirmed. The pacemaker pocket was closed in layers. Skin was approximated using 4-0 Vicryl. EXPLANTED DEVICE: Pacemaker Generator: Brand: Advisa. Model number: -. Serial number: [id number]. Date of implant: 06/19/2016 IMPLANTED DEVICES: Ventricular Lead: Date of implantation: 01/22/2002 Model number: 5076/58 Serial number: [id number] Make: Medtronic. Atrial lead Date of implantation: 01/22/2002 Model number: 5076/48 Serial number: [id number] Make: Medtronic. Implanted Generator: Date of implantation : 04/26/2022 Brand: Isi Mccormick. Model number: W1 DR 01 Serial number: [id number] Make: Medtronic Stimulation Threshold: The ventricular sensing was noted obtained since patient was pacer dependent. Ventricular lead impedance was 494 ohms and the pacing threshold was 1.25 volts at 0.4 milliseconds. The atrial sensing was 2.6 millivolts. Atrial lead impedance was 399 ohms and the pacing threshold was noted obtained because the patient was in atrial flutter. The pacemaker was set for VVIR mode with an upper rate of 130 and a lower rate of 70. A pressure dressing was applied over the pacemaker site. The patient was transferred back to medical floor in stable condition. Sponge counts were correct.
[2022-04-26] MEDS: citalopram 20 mg Tablet 40 MG PO (21:15)
[2022-04-26] MEDS: ibuprofen 600 mg Tablet PO (21:15)
[2022-04-27] MEDS: clindamycin 900 MG/50 ML PREMIX 100 MG IV (02:34)
[2022-04-27] MEDS: sodium chloride 0.9% 1,000 ML 75 ML IV (02:35)
[2022-04-27 03:26] VITALS: BP 106/74; PULSE 70; RESP 17; TEMP 36.8; O2SAT 95
[2022-04-27 04:35] VITALS: BP 135/89; PULSE 70; RESP 20; O2SAT 92
[2022-04-27 05:57] VITALS: PULSE 70
--- NOTE | 2022-04-27 06:00 | ECG_ITS ---
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 Measurements Intervals [place] Rate: 69 P: 0 GA: 0 QRS: -80 QRSD: 178 T: 88 QT: 475 QTc: 512 Interpretive Statements ELECTRONIC VENTRICULAR PACEMAKER ABNORMAL RHYTHM ECG Compared to ECG 01/03/2022 17:38:21 No significant changes Electronically Signed On 04-27-2022 20:35:00 LEATHER TOOLER by Carol Vega M.D. [id number]
[2022-04-27 07:59] VITALS: BP 132/79; PULSE 70; RESP 23; TEMP 37; O2SAT 94
--- NOTE | 2022-04-27 08:13 | PC.OT ---
OT Eval Not Completed - Patient discharged before time of evaluation.
[2022-04-27] MEDS: metoprolol succinate ER (24 HR) 25 mg Tablet PO (08:51)
[2022-04-27] MEDS: ARIPiprazole 10 mg Tablet 5 MG PO (08:51)
[2022-04-27] MEDS: ibuprofen 600 mg Tablet PO (08:51)
[2022-04-27] MEDS: HYDROcodone-acetaminophen 10-325 mg Tablet 1 TAB PO (08:56)
--- NOTE | 2022-04-27 10:08 | P.PN_ITS ---
Subjective Subjective: This patient is admitted to hospital following the pacemaker revision for IV antibiotics and monitoring. Medications: Medication Review Details: Current Medications Hydrocodone Bitart/Acetaminophen (Hydrocodone-Acetaminophen 10-325 Mg Tablet) 1 tab PO Q4H PRN PRN Reason: Pain Last Admin: 04/27/22 08:56 Dose: 1 tab Aripiprazole (Aripiprazole 10 Mg Tablet) 5 mg PO DAILY [facility] Last Admin: 04/27/22 08:51 Dose: 5 mg Carisoprodol (Carisoprodol 350 Mg Tablet) 350 mg PO QID [facility] Last Admin: 04/27/22 08:51 Dose: 350 mg Citalopram Hydrobromide (Citalopram 20 Mg Tablet) 40 mg PO BEDTIME [facility] Last Admin: 04/26/22 21:15 Dose: 40 mg Sodium Chloride (Sodium Chloride 0.9%) 1,000 mls @ 75 mls/hr IV .[id number] [facility] Last Admin: 04/27/22 02:35 Dose: 75 mls/hr Ibuprofen (Ibuprofen 600 Mg Tablet) 600 mg PO BID [facility] Last Admin: 04/27/22 08:51 Dose: 600 mg Metoprolol Succinate (Metoprolol Succinate Er (24 Hr) 25 Mg Tablet) 25 mg PO DAILY [facility] Last Admin: 04/27/22 08:51 Dose: 25 mg Vitals/I&O/Wt Last Vital Signs Temp 98.6 F 04/27/22 07:59 Pulse 70 04/27/22 07:59 Resp 23 H 04/27/22 07:59 BP 132/79 04/27/22 07:59 Pulse Ox 94 04/27/22 07:59 O2 Del Method 04/27/22 03:26 04/26/22 04/27/22 04/27/22 22:59 06:59 14:59 Intake Total 770 / 770 240 / 1010 236 / 236 Output Total 940 / 940 480 / 1420 765 / 765 Balance -170 / -170 -240 / -410 -529 / -529 Weight last 48 hrs Weight 204 lb Physical Exam Narrative: GENERAL: The patient is alert and oriented times three. Not in any acute distress. HEENT: No significant pallor, icterus or lymphadenopathy.Oral cavity: There are no mucous membrane lesions. NECK: Trachea appears to be central. No masses noted. No JVD or thyromegaly appreciated. RESPIRATORY: Chest is symmetrical. No intercostals muscle retraction or any accessory muscle activation. There is no chest wall tenderness. Breath sounds are heard bilaterally. No rales or rhonchi heard. No evidence of any consolidation. The pacemaker site has no hematoma or bleeding. BREASTS: Deferred. HEART: The heart sounds are normal. No S3 or S4. No significant murmurs. No pericardial rub ABDOMEN: No vessel pulsations or distention. No tenderness. No organomegaly appreciated. Bowel sounds are normally heard. : Deferred. RECTAL: Deferred. LYMPHATIC: No lymphadenopathy noted in the neck. EXTREMITIES: No edema or cyanosis. No clubbing. MUSCULOSKELETAL: No acute joint deformities or swelling SKIN: There are no significant rashes or ecchymosis NEUROPSYCHIATRIC: The patient is alert and oriented x3. Appears to be in a good mood. No tremors or rigidity noted. Data Other Labs: Pacemaker interrogation was done this morning. The function was found to be appropriate. A&P Assessment and plan (1) Atrial flutter by electrocardiogram: Patient is not on any oral anticoagulation because of his low [id number]-YDCt scor e. (2) Pacemaker at end of battery life: Patient underwent a pacemaker revision yesterday. His pacemaker was interrogated this morning. Function was found to be appropriate. (3) H/O aortic valve repair: Has been doing okay with no specific symptoms. (4) Tricuspid valve regurgitation: Found to be moderate by echocardiogram. Continue the current management and follow-up schedule Plan Since the patient is remaining stable with no new symptoms, he is being discharged home today. He had the Occupational Therapy evaluation and recommendations. Post pacemaker instructions were given. Attestations Medical Necessity Statement*: Discharge home today Coding Level of Care Code Acute Service Crew Supervisor for g Fwd Diagnoses Atrial flutter by electrocardiogram I48.92 Pacemaker at end of battery life Z45.010 H/O aortic valve repair Z98.890; Z86.79 Tricuspid valve regurgitation I07.1
[2022-04-27 10:59] VITALS: BP 133/84; PULSE 70; TEMP 37.1; O2SAT 93
== END 2022-04-27 11:33 | disposition home or self-care (01) ==
LOC: CCL 15:11 → CSU 04-27 00:24
PROVIDERS: PCP Internal Medicine; Visit Provider Internal Medicine Cardiovascular Disease
DX: Z45.010 Encounter for checking and testing of cardiac pacemaker pulse generator [battery] (principal)
CPT/HCPCS: 33213; 36415; 93005; 96365; 96367; 97165; 99152; 99153; A4216; C1769; C1786; J2250; J3010; J3370; J3490; J7030; J7050

== ENCOUNTER → 2022-05-03 08:18 | Outpatient (BNVA) | payer MEDICARE, MEDICAID, SELFPAY | PROVIDERS: PCP Internal Medicine; Visit Provider Nurse Practitioner Family | DX: Z95.0 Presence of cardiac pacemaker (principal) | CPT/HCPCS: 93280; 99213 ==

== ENCOUNTER → 2022-05-10 13:26 | Outpatient (BNVA) | payer MEDICARE, MEDICAID, SELFPAY | PROVIDERS: PCP Internal Medicine; Visit Provider Urology | DX: N40.1 Benign prostatic hyperplasia with lower urinary tract symptoms (principal); N20.1 Calculus of ureter | CPT/HCPCS: 51741; 51798; 52000; 81003; 99214 ==

== ENCOUNTER → 2022-09-11 09:07 | Outpatient (BNVA) | payer MEDICARE, MEDICAID, SELFPAY | PROVIDERS: PCP Internal Medicine; Visit Provider Internal Medicine Cardiovascular Disease | DX: Z45.010 Encounter for checking and testing of cardiac pacemaker pulse generator [battery] (principal) | CPT/HCPCS: 93296 ==

== ENCOUNTER → 2022-09-12 13:39 | Outpatient (BNVA) | payer MEDICARE, MEDICAID, SELFPAY | PROVIDERS: Family Provider Internal Medicine; PCP Internal Medicine; Visit Provider Internal Medicine Cardiovascular Disease | DX: I07.1 Rheumatic tricuspid insufficiency (principal); E03.9 Hypothyroidism, unspecified; Z95.0 Presence of cardiac pacemaker; Z98.890 Other specified postprocedural states; Z86.79 Personal history of other diseases of the circulatory system; N40.1 Benign prostatic hyperplasia with lower urinary tract symptoms | CPT/HCPCS: 99214 ==

== ENCOUNTER → 2023-09-05 10:27 | Outpatient (BNVA) | payer MEDICARE, MEDICAID, SELFPAY | PROVIDERS: Family Provider Internal Medicine; PCP Internal Medicine; Visit Provider Nurse Practitioner Family | DX: Z95.0 Presence of cardiac pacemaker (principal); E03.9 Hypothyroidism, unspecified; I48.92 Unspecified atrial flutter | CPT/HCPCS: 99214 ==

== ENCOUNTER → 2024-09-03 10:52 | Outpatient (BNVA) | payer MEDICARE, MEDICAID, SELFPAY | PROVIDERS: Family Provider Internal Medicine; PCP Internal Medicine; Visit Provider Internal Medicine Cardiovascular Disease | DX: I07.1 Rheumatic tricuspid insufficiency (principal); I48.92 Unspecified atrial flutter; E03.9 Hypothyroidism, unspecified; Z95.0 Presence of cardiac pacemaker; Z95.2 Presence of prosthetic heart valve; Z86.79 Personal history of other diseases of the circulatory system; Z98.890 Other specified postprocedural states; R07.9 Chest pain, unspecified | CPT/HCPCS: 93005; 99214 ==

== ENCOUNTER → 2024-09-09 11:14 | Outpatient (BNVA) | payer MEDICARE, MEDICAID, SELFPAY | PROVIDERS: Family Provider Internal Medicine; PCP Internal Medicine; Visit Provider Internal Medicine Cardiovascular Disease | DX: Z45.018 Encounter for adjustment and management of other part of cardiac pacemaker (principal) | CPT/HCPCS: 93296 ==

== ENCOUNTER 2024-09-16 20:00 | Outpatient (CLI) | payer MEDICARE, MEDICAID, SELFPAY | END 2024-09-16 20:01 | disposition home or self-care (01) | LOC: SLEEP 23:19 | PROVIDERS: Family Provider Internal Medicine; PCP Internal Medicine; Referring Provider Nurse Practitioner Family; Visit Provider Internal Medicine Pulmonary Disease | DX: G47.33 Obstructive sleep apnea (adult) (pediatric) (principal) | CPT/HCPCS: 95810 ==

== ENCOUNTER 2024-10-06 07:39 | Outpatient (CLI) | payer MEDICARE, MEDICAID, SELFPAY ==
--- NOTE | 2024-10-06 07:41 | MM_ITS ---
WS: [id number] DIAGNOSTIC BILATERAL DIGITAL BREAST TOMOSYNTHESIS MAMMOGRAPHY WITH CAD RIGHT breast ultrasound, limited. HISTORY: BREAST MASS COMPARISON: None available. TECHNIQUE: Bilateral craniocaudad, mediolateral oblique, and mediolateral views are submitted with tomosynthesis and SM. RIGHT CC spot compression. Computer aided detection utilized. Breast composition: The breasts are almost entirely fatty. Increased attenuation and soft tissue RIGHT retroareolar region measures 3.2 x 2.3 x 4.0 cm. Dendritic extension through the soft tissues. This corresponds to the palpable abnormality. Similar but much smaller finding on the LEFT measures 3.2 x 1.1 x 1.9 cm. No nipple retraction. No suspicious calcifications. RIGHT breast ultrasound, limited. RIGHT: Infiltrating dendritic mass retroareolar measures 2.0 x 1.4 x 1.0 cm and is most consistent with gynecomastia. No increased vascularity. Smaller similar findings on the LEFT. MM/MM diag BI tomosynthesis [id number] IMPRESSION: BI-RADS: 2 - Benign. FOLLOW UP: See Report Bilateral gynecomastia, RIGHT greater than LEFT. No imaging follow-up necessary .
--- NOTE | 2024-10-06 07:45 | USCV_ITS ---
Benjamin Aquino Age: 59 Gender: M : 1965 Exam Date: 10/06/2024 08:02 Ordering Phys: Rubi Stephenson MD ([email or web address]) Technologist: RADHA Exam Location: [facility] [place] Indication: TR BP: 114 / 76 HR: 68 Rhythm: Sinus Technical Quality: Adequate MEASUREMENTS (Male / Female) Normal Values 2D ECHO LV Diastolic Diameter PLAX 4.5 cm 4.2 - 5.9 / 3.9 - 5.3 cm IVS Diastolic Thickness 1.0 cm 0.6 - 1.0 / 0.6 - 0.9 cm IVS Systolic Thickness 1.7 cm LVPW Diastolic Thickness 1.3 cm 0.6 - 1.0 / 0.6 - 0.9 cm LVPW Systolic Thickness 1.5 cm LVOT Diameter 2.0 cm LV Ejection Fraction 2D Teich 60.1 % LV Ejection Fraction MOD 4C 58.5 % LV Ejection Fraction MOD 2C 59.0 % LV Ejection Fraction 2C AL 61.9 % LA Diameter 3.2 cm RA Systolic Volume 4C AL 94.0 ml RA Systolic Volume 4C MOD 88.4 ml Aorta at Sinotubular Diameter 2.7 cm IVC Diameter 3.0 cm M-MODE LA Ao Ratio MM 1.2 AV Cusp Separation MM 1.6 cm DOPPLER AV Peak Velocity 102.0 cm/s LVOT Peak Velocity 89.0 cm/s AV Area Cont Eq vti 2.7 cm squared AV Area Cont Eq pk 2.6 cm squared MV Peak Velocity 125.0 cm/s MV Area PHT 3.3 cm squared Mitral E to A Ratio 3.4 TR Peak Velocity 155.0 cm/s TR Peak Gradient 9.6 mmHg TV Peak E Velocity 236.0 cm/s PV Peak Velocity 141.0 cm/s FINDINGS Left Ventricle Normal left ventricular size and systolic function, EF 59%.. No gross wall motion abnormalities. Right Ventricle Normal RV size and systolic function Right Atrium Markedly dilated right atrium Left Atrium Mildly dilated left atrium Mitral Valve Moderate mitral valve regurgitation. Aortic Valve Slightly thickened aortic valve Tricuspid Valve ? Bioprosthetic valve the tricuspid position. The peak velocity at the tricuspid valve was 2.36 m/s. The peak gradient was 22 mmHg. Features suggesting possibly severe tricuspid valve stenosis. Mild tricuspid valve regurgitation. Pulmonic Valve Mild pulmonary valve regurgitation. Pericardium Normal pericardium without effusion. Aorta Normal aortic annulus size. IVC Dilated inferior vena cava measuring 3.0 cm in diam. normal respiratory variation. CONCLUSIONS Normal left ventricular size and systolic function, EF 59%.. No gross wall motion abnormalities. Possible bioprosthetic valve at the tricuspid position. Features suggesting possible moderate to severe tricuspid valve stenosis. Peak gradient of 22 mmHg Mild pulmonary valve regurgitation. Mild tricuspid valve regurgitation. Normal RV size and systolic function There is no pericardial effusion. There are no intracardiac masses. Compared to the study from 04/19/2022, there is worsening of the gradient across the tricuspid valve The tricuspid valve Doppler studies need to be repeated Dr Rubi Stephenson MD FACC (Electronically Signed) Final Date: 12 October 2024 20:56 S
== END 2024-10-06 07:40 | disposition home or self-care (01) ==
LOC: RAD 07:40
PROVIDERS: Family Provider Internal Medicine; PCP Internal Medicine; Visit Provider Internal Medicine
DX: I07.1 Rheumatic tricuspid insufficiency (principal); N62 Hypertrophy of breast; Z98.890 Other specified postprocedural states; Z86.79 Personal history of other diseases of the circulatory system; I34.0 Nonrheumatic mitral (valve) insufficiency; Z96.89 Presence of other specified functional implants; Z95.4 Presence of other heart-valve replacement; R93.1 Abnormal findings on diagnostic imaging of heart and coronary circulation; I37.1 Nonrheumatic pulmonary valve insufficiency; R92.313 Mammographic fatty tissue density, bilateral breasts
CPT/HCPCS: 76642; 77062; 93306; G0279

== ENCOUNTER 2024-12-03 13:36 | Outpatient (CLI) | payer MEDICARE, MEDICAID, SELFPAY | END 2024-12-03 13:37 | disposition home or self-care (01) | LOC: SLEEP 13:38 | PROVIDERS: Family Provider Internal Medicine; PCP Internal Medicine; Visit Provider Internal Medicine Pulmonary Disease | DX: G47.33 Obstructive sleep apnea (adult) (pediatric) (principal) | CPT/HCPCS: G0399 ==

== ENCOUNTER 2025-01-13 08:34 | Observation (INO) | payer MEDICARE, MEDICAID, SELFPAY ==
--- OUTSIDE RECORDS SUMMARY | 2025-01-05 09:00 | XMS_ITS ---
Author Organization [facility] Address [address] [place] [address] Care Team Providers Care Oncology Rep Name Role Phone Moe Woo Primary Care Provider [phone] Allergies Allergen (clinical drug ingredient) Drug/Non Drug Allergy documented on EMR Reaction Allergy Type Onset Date Status erythromycin Erythromycin Base Unknown Drug Allergy Active Influenza Virus Vaccine Live Unknown Drug Allergy Active naproxen Naproxen Unknown Drug Allergy Active isotretinoin Isotretinoin Unknown Drug Allergy A ctive nefazodone Nefazodone Unknown Drug Allergy Activ e Penicillin Unknown Drug Allergy Active REASON FOR VISIT AWV Medications Medication SIG (Take, Route, Frequency, Duration) Notes Start Date End Date Status tiZANidine HCl 4 MG Capsule 1 capsule at bedtime as needed Orally daily; Duration: 30 days 01/04/2025 Active HYDROcodone-Acetaminophen 10-325 MG Tablet 1 tablet as needed Orally every 6 hrs Not-Taking Solifenacin Succinate 5 mg Tablet TAKE ONE TABLET BY MOUTH EVERY DAY; Duration: 30 Not-Taking Buprenorphine HCl-Naloxone HCl 2-0.5 MG Tablet Sublingual 1 Sublingual bid; Duration: 30 days 01/04/2025 05/04/2025 Active Ibuprofen 600 MG Tablet 1 tablet with fo od or milk as needed Orally Three times a day Not-Taking Myrbetriq 50 mg Tablet Extended Release 24 Hour TAKE ONE TABLET BY MOUTH ONCE DAILY; Duration: 30 Not-Taking Vitamin C 500 MG Capsule as directed Orally Not-Taking Vitamin B Complex - Capsule as directed Orally Not-Takin g Ondansetron 4 MG Tablet Disintegrating 1 tablet on the tongue and allow to dissolve Orally Once a day Not-Taking predniSONE 20 MG Tablet 1 tablet with fo od or milk Orally Once a day; Duration: 7 days 12/09/2024 Not-Taking Carisoprodol 350 MG Tablet 1 tablet as needed Orally Four times a day Not-Taking Solifenacin Succinate 5 MG Tablet 1 tablet Orally Once a day; Duration: 90 days 12/23/2024 Active ARIPiprazole 5 mg Tablet TAKE ONE TABLET BY MOUTH EVERY DAY; Duration: 28 Active Myrbetriq 50 MG Tablet Extended Release 24 Hour 1 tablet Orally Once a day; Duration: 90 days 12/23/2024 Active Belsomra 20 MG Tablet 1 tablet at bedtim e as needed Orally Once a day; Duration: 30 days 09/22/2024 02/19/2025 Active Levothyroxine Sodium 25 mcg Tablet TAKE ONE TABLET BY MOUTH EVERY MORNING ON a EMPTY stomach; Duration: 30 Active Furosemide 20 MG Tablet TAKE 1 TABLET BY MOUTH ONCE DAILY; Duration: 30 Active Metoprolol Succinate ER 25 MG Tablet Extended Release 24 Hour 1 tablet Orally Once a day Active Citalopram Hydrobromide 40 mg Tablet TAKE ONE TABLET BY MOUTH At Bedtime; Duration: 30 Active Tamsulosin HCl 0.4 mg Capsule TAKE ONE CAPSULE BY MOUTH TWICE DAILY; Duration: 30 Active Social History Tobacco Use: Social History Observation Description Date Details (start date - stop date) Never Smoker NA - NA Social History Depression Screening Social Info Question Answer Notes PHQ-9 Little interest or pleasure in doing thin gs Several days Feeling down, depressed, or hopeless Several day s Trouble falling or staying asleep, or sleeping t oo much Nearly every day Feeling tired or having little energy Several da ys Poor appetite or overeating Several days Feeling bad about yourself, or that you are a failure, or have let yourself or your family down Not at all Trouble concentrating on thi ngs, such as reading the newspaper or watching television Not at all Moving or speaking so slowly that other people could have noticed. Or the opposite ? being so fidgety or restless that you have been moving around a lot more than usual Several days Thoughts that you would be b carlie off , or of hurting yourself in some way Not at all Total Score 8 Interpretation Mild Depression Comprehensive Health Assessm ent Social Info Question Answer Notes *Social Determinants of Health Has lack of transportation kept you from medical appointments, meetings, work or from getting things needed for daily living? No Recently, have you worried t hat your food would run out before you got money to buy more? No Do you feel physically and emotionally safe wher e you currently live? Yes Are you worried about losing your housing? No Have you recently been chrissy rned that your utilities would be turned off (electricity, gas, or water)? No Tobacco Use: Social Info Question Answer Notes Tobacco Control (Standard) Tobacco use: Nonsmoker Section Notes: CIME Dep/Tob 11/16/24 CIME Dep/Tob 01/05/2025 Vital Signs Temperature 98.5 degrees Fahrenheit 01/06/20 25 Blood pressure systolic 106 mm Hg 01/06/20 25 Blood pressure diastolic 80 mm Hg 025 Heart Rate 76 /min 01/05/2025 Respiratory Rate 17 /min 01/05/2025 Height 71 in 01/05/2025 Weight 200 lbs 01/05/2025 BMI 27.89 kg/m2 01/05/2025 Oximetry 95 % 01/05/2025 Height-cm 180.34 cm 01/05/2025 Weight-kg 90.72 kg 01/05/2025 Encounters Encounter Location Date Provider Diagnosis [facility] [address] [place] [id number] 01/05/2025 Moe Woo Positive depression screening Z13.31 ; Encounter for Medicare annual wellness exam Z00.00 and Depression screening Z13.31 Assessments Encounter Date Diagnosis (ICD Code) Assessment Notes Treatment Notes Treatment Clinical Notes Section Notes 01/05/2025 Positive depression screening (ICD-10 - Z13.31) Depression screening performed using PHQ-9 depression scale. Score greater than 5 indicating possible moderate depression. Plan of care discussed with patient and implemented accordingly, including any medications, referrals, education tools, and follow-up evaluations as deemed appropriate.. *Please list patient's current problem list with appropriate and specific ICD-10's. 01/05/2025 Encounter for Medicare annual wellness exam (ICD-10 - Z00.00) Discussed with patient health education topics including diet, exercise, safety, and healthy living principles. We have reviewed and updated pt's written recommendations for preventative services. Pt is due now for the following preventative services: Referrals and orders made as appropriate. Diagnosis reconciliation performed and verified as listed in Assessments. Depression screening performed using PHQ-9 depression scale. Score greater than 5 indicating possible moderate depression. Plan of care discussed with patient and implemented accordingly, including any medications, referrals, education tools, and follow-up evaluations as deemed appropriate.. *Please list patient's current problem list with appropriate and specific ICD-10's. 01/05/2025 Depression screening (ICD-10 - Z13.31) Depression screening performed using PHQ-9 depression scale. Score greater than 5 indicating possible moderate depression. Plan of care discussed with patient and implemented accordingly, including any medications, referrals, education tools, and follow-up evaluations as deemed appropriate.. *Please list patient's current problem list with appropriate and specific ICD-10's. Plan Of Treatment Treatment Notes Assessment Notes Encounter for Medicare mickey l wellness exam Discussed with patient health education topics including diet, exercise, safety, and healthy living principles. We have reviewed and updated pt's written recommendations for preventative services. Pt is due now for the following preventative services: Referrals and orders made as appropriate. Next Appt Details Follow Up: 1 Year, Reason: A [place] Provider Name:Damian Lopez, 03/31/2025 10:20:00 AM, [address] [place], [address], Provider Name:Nydia Aviles, 06/25/2025 11:10:00 AM, [address] , [place] [address], [place], [address], History and Physical Notes * HPI (History of Present Illness) Category Sub-Category Detail Notes Category Not es Nursing Initial Assessment Health Literacy Screening How confident are you filling out medical forms by yourself?: Extremely Patient Care Team - As listed below Environmental Maintenance Worker: [facility] Urologist: Aldo Rincon Medicare/Advantage Wellness Type of Visit: Subsequent Annual Wellness Visit Health Risk Assessment: Demographic Data:: Revie shaun Language or Communication Ba rriers:: No language or communication barriers identified Behavioral Risk Assessment ( check all that were completed and reviewed today):: Depression Screening, Tobacco Screening Immunizations reviewed today (see immunization section of progress note):: Yes Social Determinants of Health Reviewed ( Social History):: Yes How would you rate your own health?: Ernesto r When was your last dentist appointment?: unknown Do you use a seatbelt when you are in a motor vehicle?: Yes, every time Home Safety Check (check all that are in place):: clear walkways from room to room, adequate lighting, handrails for outside stairs/steps, undefined Safety Concerns (check all t hat apply, use notes for further description):: None 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, 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, 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, has pain affected your relationships with other people?: Yes, a little Are you able to get refills and take you r medicine as directed?: Yes Are you able to plan and prepare your ow n meals?: Yes, no help needed Are you able to do your own shopping?: Y es, no help needed Are you able to plan your da keanu and monthly budgets and banking?: Yes, no help needed Are you able to do your own household ch ores?: Yes, with help Are you able to dress yourself?: Yes, no help needed Are you able to bathe and clean yourself ?: Yes, no help needed Are you able use the toilet?: Yes, no he lp needed Do you have any problems with bladder le akage or incontinence of urine?: Yes Examination Category Sub-Category Detail Notes Category Not es General Examination GENERAL APPEARANCE: alert, w ell hydrated, in no distress. EYES: PERRL; normal conjun ctiva. EARS: Hearing intact Wears hearing aids NECK/THYROID: neck supple, no cerv ical lymphadenopathy no carotid bruit no thyromegaly no thyroid nodules LUNGS: good air movement, c lear to auscultation bilaterally ABDOMEN: soft, nontender, non distended; no organomegaly; bowel sounds present SKIN: warm and dry, good t urgor, no rashes or concerning skin lesions MUSCULOSKELETAL: normal gait PSYCH: judgement and insigh t good ORAL CAVITY: mucosa moist, tongue in midline. 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 Health Risk Assessment: D emographic Data: R florecita Wright anguage or Communication Barriers: N o language or communication barriers identified B ehavioral Risk Assessment (check all that were completed and reviewed today): D epression Screening, Tobacco Screening I mmunizations reviewed today (see immunization section of progress note): Y es S ocial Determinants of Health Reviewed (Social History): Y es H ow would you rate your own health? F air W hen was your last dentist appointment? u nknown D o you use a seatbelt when you are in a motor vehicle? 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 Y es, a little A re you able to get refills and take your medicine as directed? Y es A re you able to plan and prepare your own meals? Y es, no help needed A re you able to do your own shopping? Y es, no help needed A re you able to plan your daily and monthly budgets and banking? 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 Y es, no help needed A re you able to bathe and clean yourself??Yes, no help needed A re you able use the toilet? Y es, no help needed D o you have any problems with bladder leakage or incontinence of urine? Y es N ursing Initial Assessment: Health Literacy Screening H ow confident are you filling out medical forms by yourself? E xtremely P atient Care Team: - A s listed below . Environmental Maintenance Worker: [facility]. Urologist: Abi Rincon. * ROS: G eneral - Multi System: Constitutional D enies fever, chills, body aches, change in appetite, or problems with sleep. E ar, Nose, Mouth, Throat D enies any ear pain, sore throat, sinus congestion, or nasal drainage. C ardiovascular D enies any recent chest pain, palpitations or syncope. R espiratory D enies any shortness of breath, cough, or hemoptysis.?Gastrointestinal D enies heartburn, constipation, diarrhea, nausea, blood in stools, or abdominal pain. G enitourinary D enies dysuria, urinary frequency, or hematuria. M usculoskeletal D enies any joint pain or swelling, no recent trauma. I ntegumentary D enies any rashes, bruising, or skin changes. N eurologic D enies numbness, tingling, or unilateral weakness. P sychiatric D enies depression, anxiety, or suicidal thoughts/actions. H ematology Denies easy bruising or bleeding. O pthalmologic D enies any vision changes or eye discomfort, drainage, or eyelid problems. L ymphatic System D enies swollen glands. ? * Medical History: Left shoulder pain, unspecified chronicity Bladder irritation Depression Tricuspid valve regurgitation, nonrheumatic H/O aortic valve replacement Pacemaker Hypothyroidism Erectile dysfunction Overactive bladder Lower urinary tract infection Medical History Verified * Surgical History: rotator cuff surgery pacemaker Vasectomy penile implant at [facility] Surgical History verified. * Ocular Surgical History: * Hospitalization/Major Diagno stic Procedure: No Hospitalization Documented. Hospitalization Verified. * Family History: F ather: , heart. M other: , tick fever. F amily History Verified..? * Social History: T obacco Use: T obacco Control (Standard) T obacco use: N onsmoker D epression Screening: P HQ-9 L ittle interest or pleasure in doing things?Several days F eeling down, depressed, or hopeless S everal days T rouble falling or staying asleep, or sleeping too much N early every day F eeling tired or having little energy S everal days P oor appetite or overeating S everal days F eeling bad about yourself, or that you are a failure, or have let yourself or your family down N ot at all T rouble concentrating on things, such as reading the newspaper or watching television N ot at all M oving or speaking so slowly that other people could have noticed. Or the opposite ? being so fidgety or restless that you have been moving around a lot more than usual S ever days T houghts that you would be better off , or of hurting yourself in some way N ot at all T otal Score 8 I nterpretation M ild Depression C omprehensive Health Assessment: * Social Determinants of Health H as lack of transportation kept you from medical appointments, meetings, work or from getting things needed for daily living? N o R ecently, have you worried that your food would run out before you got money to buy more? N o D o you feel physically and emotionally safe where you currently live? Y es A re you worried about losing your housing??No H ave you recently been concerned that your utilities would be turned off (electricity, gas, or water)? N o S ocial History Verified. C VLADIMIR Dep/Tob 11/16/24 CIME Dep/Tob 01/05/2025. * Medications: T akingCitalopram Hydrobromide 40 mg Tablet TAKE ONE TABLET BY MOUTH At Bedtime Furosemide 20 MG Tablet TAKE 1 TABLET BY MOUTH ONCE DAILY Levothyroxine Sodium 25 mcg Tablet TAKE ONE TABLET BY MOUTH EVERY MORNING ON a EMPTY stomach Metoprolol Succinate ER 25 MG Tablet Extended Release 24 Hour 1 tablet Orally Once a day Tamsulosin HCl 0.4 mg Capsule TAKE ONE CAPSULE BY MOUTH TWICE DAILY ARIPiprazole 5 mg Tablet TAKE ONE TABLET BY MOUTH EVERY DAY Belsomra 20 MG Tablet 1 tablet at bedtime as needed Orally Once a day , stop date 02/19/2025Myrbetriq 50 MG Tablet Extended Release 24 Hour 1 tablet Orally Once a day Solifenacin Succinate 5 MG Tablet 1 tablet Orally Once a day Buprenorphine HCl-Naloxone HCl 2-0.5 MG Tablet Sublingual 1 Sublingual bid , stop date 05/04/2025tiZANidine HCl 4 MG Capsule 1 capsule at bedtime as needed Orally daily Taking Citalopram Hydrobromide 40 mg Tablet TAKE ONE TABLET BY MOUTH At Bedtime Taking Furosemide 20 MG Tablet TAKE 1 TABLET BY MOUTH ONCE DAILY Taking Levothyroxine Sodium 25 mcg Tablet TAKE ONE TABLET BY MOUTH EVERY MORNING ON a EMPTY stomach Taking Metoprolol Succinate ER 25 MG Tablet Extended Release 24 Hour 1 tablet Orally Once a day Taking Tamsulosin HCl 0.4 mg Capsule TAKE ONE CAPSULE BY MOUTH TWICE DAILY Taking ARIPiprazole 5 mg Tablet TAKE ONE TABLET BY MOUTH EVERY DAY Taking Belsomra 20 MG Tablet 1 tablet at bedtime as needed Orally Once a day , stop date 02/19/2025Taking Myrbetriq 50 MG Tablet Extended Release 24 Hour 1 tablet Orally Once a day Taking Solifenacin Succinate 5 MG Tablet 1 tablet Orally Once a day Taking Buprenorphine HCl-Naloxone HCl 2-0.5 MG Tablet Sublingual 1 Sublingual bid , stop date 05/04/2025Taking tiZANidine HCl 4 MG Capsule 1 capsule at bedtime as needed Orally daily Not-TakingCarisoprodol 350 MG Tablet 1 tablet as needed Orally Four times a day Ondansetron 4 MG Tablet Disintegrating 1 tablet on the tongue and allow to dissolve Orally Once a day Vitamin B Complex - Capsule as directed Orally Vitamin C 500 MG Capsule as directed Orally Myrbetriq 50 mg Tablet Extended Release 24 Hour TAKE ONE TABLET BY MOUTH ONCE DAILY predniSONE 20 MG Tablet 1 tablet with food or milk Orally Once a day Solifenacin Succinate 5 mg Tablet TAKE ONE TABLET BY MOUTH EVERY DAY HYDROcodone-Acetaminophen 10-325 MG Tablet 1 tablet as needed Orally every 6 hrs Ibuprofen 600 MG Tablet 1 tablet with food or milk as needed Orally Three times a day Not-Taking Carisoprodol 350 MG Tablet 1 tablet as needed Orally Four times a day Not-Taking Ondansetron 4 MG Tablet Disintegrating 1 tablet on the tongue and allow to dissolve Orally Once a day Not-Taking Vitamin B Complex - Capsule as directed Orally Not-Taking Vitamin C 500 MG Capsule as directed Orally Not- Taking Myrbetriq 50 mg Tablet Extended Release 24 Hour TAKE ONE TABLET BY MOUTH ONCE DAILY Not-Taking predniSONE 20 MG Tablet 1 tablet with food or milk Orally Once a day Not-Taking Solifenacin Succinate 5 mg Tablet TAKE ONE TABLET BY MOUTH EVERY DAY Not-Taking HYDROcodone-Acetaminophen 10-325 MG Tablet 1 tablet as needed Orally every 6 hrs Not-Taking Ibuprofen 600 MG Tablet 1 tablet with food or milk as needed Orally Three times a day * Allergies: I sotretinoin - Criticality UnknownPenicillin - Criticality UnknownNaproxen - Criticality UnknownNefazodone - Criticality UnknownInfluenza Virus Vaccine Live - Criticality UnknownErythromycin Base - Criticality UnknownyesAllergies Verified. Objective: * Vitals: H t: 71 in, Wt:200lbs, Wt-k.72 kg, BMI:27.89Index, Temp:98.5F, BP:106/80mm Hg, HR:76/min, RR:17/min, Oxygen sat %:95%, O2 Source: RA, Pain scale: 5 1-10, Ht- cm: 180.34 cm. Vision Examination: * Examination: G eneral Examination: GENERAL APPEARANCE: a lert, well hydrated, in no distress..? EYES: P ERRL; normal conjunctiva.. EARS: H earing intact Wears hearing aids. ORAL CAVITY: m ucosa moist,tongue in midline.. NECK/THYROID: n jens supple, no cervical lymphadenopathy no carotid bruit no thyromegaly no thyroid nodules . SKIN: w arm and dry, good turgor, no rashes or concerning skin lesions. LUNGS: g ood air movement, clear to auscultation bilaterally . ABDOMEN: s oft, nontender, nondistended; n o organomegaly; bowel sounds present . MUSCULOSKELETAL: n ormal gait. PSYCH: j udgement and insight good . Assessment: * Assessment: 1. P ositive depression screening - Z13.31 (Primary) 2 . E ncounter for Medicare annual wellness exam - Z00.00 3 . D epression screening - Z13.31 ? Depression screening perform ed using PHQ-9 depression scale. Score greater than 5 indicating possible moderate depression. Plan of care discussed with patient and implemented accordingly, including any medications, referrals, education tools, and follow-up evaluations as deemed appropriate.. *Please list patient's current problem list with appropriate and specific ICD-10's. Plan: * Treatment: * Procedure Codes: 3 074F SYST BP LT 130 MM [id number] ANNUAL DEPRESSION SCREENING 15 [id number] DIAST BP 80-89 MM [id number] CLIN DEPRESSION SCREEN [id number] AMNT PAIN NOTED PAIN [id number] TOBACCO [id number] FALL RISK ASSESSMENT [id number] FXNL STATUS [id number] [employer]_PT-FOCUSED HLTH RISK ASSMT * Preventive Medicine: Fall Risk Assessment: F all Risk Assessment Fall Risk Assessment N o falls in the past year Screenings: L AST WELLNESS VISIT (if today's visit is wellness, use today's date): Date: 0 01/05/2025 C ARE FOR OLDER ADULTS Advanced Care Planning date 0 01/05/2025 Discussed with patient, they decline to provide advance directive Patient was offered the opportunity to discuss advance care planning: Y es Advanced care planning: D iscussed with patient, does not have advanced directive Patient provided information on ACP Functional Status N o Impairment for Functional Status Function Status Assessment date 0 01/05/2025 Medication review date 0 12/29/2024 Pain Assessment date 0 01/05/2025 C OLORECTAL CANCER SCREENING: Date of last colonoscopy U nknown D EPRESSION SCREENING: Date of most recent screenin 01/05/2025 T OBACCO USE SCREENING: (Please document on Smart Form in Social History to meet measure. No mapping from this section.) * Counseling: N utrition/Physical Activity/Smoking/Depression Follow-Up for Depression M formerly [facility] management spent 7 mins in discussion with patient on depression counseling. D epression and follow-up Treatment plan includes Nicolle onitor, Counseling Male: YOUR WELLNESS PLAN: M EN'S PREVENTIVE WELLNESS PLAN (For Informational Purposes Only) P rinted, provided to patient, and scanned to chart.. A bdominal Aortic Aneurysm: The Recommended Frequency is: O nce, between the age range of 65-75 and for those who have smoked 100+ cigarettes in lifetime A lcohol Misuse Screening: The Recommended Frequency is: A s necessary for those with risk factors B lood Pressure: The Recommended Frequency is: E very two years, if BP < /= 120/80 mm Hg, Annually, if BP > 120-139/80-89 mm Hg B GA, Height, and Weight: The Recommended Frequency is: A nnually C holesterol Testing: The Recommended Frequency is: R egularly beginning at age 20 with risk factors C olorectal Cancer Screening: Starting at age 45, Recommended frequency: F ecal Occult Blood Stool (FOBS): Every Year,Sigmoidoscopy with FOBS: Every 5 Years,Colonoscopy: Every 10 Years,Cologuard: Every 3 Years D epression Screening: The Recommended Frequency is: Y early for those without a depression diagnoses; more often for those with a depression diagnosis. D iabetes Screening: The Recommended Frequency is: F or adults ages 35-70 years who are overweight or obese: every 3 years after a negative screen D iabetic Recommendations: Recommended Frequency for HgA1C: e very 3-6,, or as recommended by provider Recommended Frequency for Diabetic Foot Exam: a t least once a year, or more often, if indicated Recommended Frequency for Diabetic (Retinopathy) Eye Exam: I f last exam was negative: every 2 years, If last exam showed retinopathy: Yearly Other Recommendations: S tatin (a specific type of cholesterol reducing medicine) to reduce the risk of cardiovascular disease I nfluenza (Flu) Vaccine: The Recommended Frequency is: A nnually P neumococcal (Pneumonia) Vaccine: The Recommended Frequency is: 1 -2 doses up to age 64, 1 dose age 65+ P rostate Cancer Screening (Digital Rectal Exam [VINAYAK]/Prostate Specific Antigen [PSA]): The Recommended Frequency is: A nnually, age 50 or older, with provider discussion and planning S exually Transmitted Diseases (STDs): The Recommended Frequency is: A s necessary for those with risk factors V ision: The Recommended Frequency is: E very three years up to age 40, Every two years aged 40+ * Follow Up: 1 Year (Reason: AWV) Billing Information: * Visit Code: G0439 Annual Wellness Visit, Subsequent. * Procedure Codes: 3074F SYST BP LT 130 MM HG. G0444 ANNUAL DEPRESSION SCREENING 15 MIN. 3079F DIAST BP 80-89 MM HG. G8431 CLIN DEPRESSION SCREEN DOC. 1125F AMNT PAIN NOTED PAIN PRSNT. 1036F TOBACCO NON-USER. 3288F FALL RISK ASSESSMENT DOCD. 1170F FXNL STATUS ASSESSED. 60877 [employer]_PT-FOCUSED HLTH RISK ASSMT. Care Plan Details* * Electronic signature of Tera Woo MD on 01/13/2025 at 08:45 AM CDT Sign off status: Pending * Provider: Erin Woo MD Date: 0 01/05/2025 Generated for Anthony callahan/Angel/Juliocesaritting on: 0 01/13/2025 08:45 AM CDT
--- OUTSIDE RECORDS SUMMARY | 2025-01-11 14:11 | XMS_ITS ---
Author Organization [facility] Address [address] [place] [address] Care Team Providers Care Deputy District Customs Director Name Role Phone Moe Woo Primary Care [...] Unknown Drug Allergy Active REASON FOR VISIT [facility] Monthly call Medications Medication SIG (Take, [...] 01/05/2025 Encounters Encounter Location Date Provider Diagnosis [facility] 01/11/2025 Moe Woo Primary hype rtension I10 and Chronic pain syndrome G89.4 Assessments Encounter Date Diagnosis (ICD Code) Assessment Notes Treatment Notes Treatment Clinical Notes Section Notes 01/11/2025 Primary hypertension (ICD-10 - I10) 01/11/2025 Chronic pain syndrome (ICD-10 - G89.4) Plan Of Treatment Next Appt Details Provider Name:Damian Lopez, 03/31/2025 10:20:00 AM, [address] [place], [address], Provider Name:Nydia Aviles, 06/25/2025 11:10:00 AM, [address] [facility], [place] [address], [place], [address], Progress Notes * Tarun AQUINO: 5 (59 yo M)Acc No.[id number]:01/11/2025 Patient: Benjamin BAUER :1965 A ge:59 Y S ex:Male Address:[address] [place] [address] Subjective: * Chief Complaints: * C CM Monthly call * Medical History: Left shoulder pain, unspecified chronicity Bladder irritation Depression Tricuspid valve regurgitation, nonrheumatic H/O aortic valve replacement Pacemaker Hypothyroidism Erectile dysfunction Overactive bladder Lower urinary tract infection * Surgical History: rotator cuff surgery pacemaker Vasectomy penile implant at [facility] * Family History: F ather: , heart. [...]
--- OUTSIDE RECORDS SUMMARY | 2025-01-12 04:40 | XMS_ITS ---
Author Organization [facility] Address [address] [place] [address] Care Team Providers Care Tar Boiler Name Role Phone Moe Woo Primary Care [...] Unknown Drug Allergy Active REASON FOR VISIT Scratched leg/oozing Medications Medication SIG (Take, Route, Frequency, Duration) Notes Start Date End Date Status Solifenacin Succinate 5 mg Tablet TAKE ONE TABLET BY MOUTH EVERY DAY; Duration: 30 Not-Taking Doxycycline Hyclate 100 MG Tablet 1 tablet Orally twice a day; Duration: 10 days 01/12/2025 01/22/2025 Active predniSONE 20 MG Tablet 1 tablet with fo od or milk Orally Once a day; Duration: 7 days 12/09/2024 Not-Taking Ibuprofen 600 MG Tablet 1 tablet with fo od or milk as needed Orally Three times a day Not-Taking HYDROcodone-Acetaminophen 10-325 MG Tablet 1 tablet as needed Orally every 6 hrs Not-Taking Vitamin C 500 MG Capsule as directed Orally Not-Taking Vitamin B Complex - Capsule as directed Orally Not-Takin g Ondansetron 4 MG Tablet Disintegrating 1 tablet on the tongue and allow to dissolve Orally Once a day Not-Taking Carisoprodol 350 MG Tablet 1 tablet as needed Orally Four times a day Not-Taking Myrbetriq 50 mg Tablet Extended Release 24 Hour TAKE ONE TABLET BY MOUTH ONCE DAILY; Duration: 30 Not-Taking Buprenorphine HCl-Naloxone HCl 2-0.5 MG Tablet Sublingual 1 Sublingual bid; Duration: 30 days 01/04/2025 05/04/2025 Active Solifenacin Succinate 5 MG Tablet 1 tablet Orally Once a day; Duration: 90 days 12/23/2024 Active Furosemide 20 MG Tablet TAKE 1 TABLET BY MOUTH ONCE DAILY; Duration: 30 Not-Taking Citalopram Hydrobromide 40 mg Tablet TAKE ONE TABLET BY MOUTH At Bedtime; Duration: 30 Active tiZANidine HCl 4 MG Capsule 1 capsule at bedtime as needed Orally daily; Duration: 30 days 01/04/2025 Active ARIPiprazole 5 mg Tablet TAKE ONE TABLET BY MOUTH EVERY DAY; Duration: 28 Active Tamsulosin HCl 0.4 mg Capsule TAKE ONE CAPSULE BY MOUTH TWICE DAILY; Duration: 30 Active Metoprolol Succinate ER 25 MG Tablet Extended Release 24 Hour 1 tablet Orally Once a day Active Myrbetriq 50 MG Tablet Extended Release 24 Hour 1 tablet Orally Once a day; Duration: 90 days 12/23/2024 Active Belsomra 20 MG Tablet 1 tablet at bedtim e as needed Orally Once a day; Duration: 30 days 09/22/2024 02/19/2025 Active Levothyroxine Sodium 25 mcg Tablet TAKE ONE TABLET BY MOUTH EVERY MORNING ON a EMPTY stomach; Duration: 30 Active MgO 400 (240 Mg) MG Tablet 1 tablet with food Orally Once a day Active Social History Tobacco Use: Social History Observation Description Date Details (start date - stop date) Never Smoker NA - NA Social History Tobacco Use: Social Info Question Answer Notes Tobacco Control (Standard) Tobacco use: Nonsmoker Section Notes: CIME Dep/Tob 11/16/24 CIME Dep/Tob 01/05/2025 Vital Signs Temperature 96.9 degrees Fahrenheit 01/13/20 25 Blood pressure systolic 120 mm Hg 01/13/20 25 Blood pressure diastolic 70 mm Hg 025 Heart Rate 92 /min 01/12/2025 Height 71 in 01/12/2025 Weight 204 lbs 01/12/2025 BMI 28.45 kg/m2 01/12/2025 Oximetry 94 % 01/12/2025 Height-cm 180.34 cm 01/12/2025 Weight-kg 92.53 kg 01/12/2025 Encounters Encounter Location Date Provider Diagnosis [facility] [address] [place] [address] 01/12/2025 Moe Woo Cellulitis of pretibial region L03.119 Assessments Encounter Date Diagnosis (ICD Code) Assessment Notes Treatment Notes Treatment Clinical Notes Section Notes 01/12/2025 Cellulitis of pretibial region (ICD-10 - L03.119) Plan Of Treatment Medication Medication Name Sig Start Date Stop Date Notes Doxycycline Hyclate 100 MG Tablet 1 tablet Orally twice a day; Duration: 10 days 01/12/2025 01/22/2025 Next Appt Details Provider Name:Damian Blake Slaughteremilieblake, 03/31/2025 10:20:00 AM, [address] [place], [address], Provider Name:Nydia Aviles, 06/25/2025 11:10:00 AM, [address] , [address], [address], Medications Administered Medication Instructions Date of Administration Dosage Notes Rocephin 01/12/2025 1 g History and Physical Notes * Examination Category Sub-Category Detail Notes Category Not es Examination GENERAL APPEARANCE: Awake/alert. No appar ent distress NECK/THYROID: Supple without lymph adenopathy, thyromegaly, thyroid masses, or carotid bruits HEART: Regular rate and rhy thm without rubs, murmurs, or gallops. PMI nondisplaced ABDOMEN: Soft, nontender, non distended with active bowel sounds X4. 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 * ROS: G eneral/Constitutional: Patient denies f atigue , fever , night sweats. ? H ematology: Patient denies e asy bruising , bleeding problems , recent transfusion. R espiratory: Patient denies c ough , shortness of breath , wheezing.? C ardiovascular: Patient denies c hest pain , irregular heartbeat , swelling in hands. S welling in hands/feet S welling L leg and foot. G astrointestinal: Patient denies a bdominal pain, bloating , constipation , diarrhea , heartburn , blood in stool , nausea , vomiting. G enitourinary: Patient denies p ainful urination , blood in the urine , difficulty urinating. E NT: Patient denies e ar pain , nosebleed, runny nose, s ore throat. M usculoskeletal: Patient denies a rthritis\arthralgia , back pain , joint stiffness , muscle aches. S kin: Patient denies s kin lesion(s) , rash , acne. ? N eurologic: Patient denies d izziness , fainting , headache , memory loss , seizures. P sychiatric: Patient denies a nxiety , depressed mood , difficulty sleeping , suicidal thoughts. f ollow up - scratched leg and started oozing. * Medical History: Left shoulder pain, unspecified chronicity Bladder irritation Depression Tricuspid valve regurgitation, nonrheumatic H/O aortic valve replacement Pacemaker Hypothyroidism Erectile dysfunction Overactive bladder Lower urinary tract infection Medical History Verified * Surgical History: rotator cuff surgery pacemaker Vasectomy penile implant at [facility] Surgical History verified. * Hospitalization/Major Diagno stic Procedure: No Hospitalization Documented. Hospitalization Verified. * Family History: F ather: , heart. M other: , tick fever. F amily History Verified..? * Social History: T obacco Use: T obacco Control (Standard) T obacco use: N onsmoker S ocial History Verified. C VLADIMIR Dep/Tob 11/16/24 CIME Dep/Tob 01/05/2025. * Medications: T akingMgO 400 (240 Mg) MG Tablet 1 tablet with food Orally Once a day Levothyroxine Sodium 25 mcg Tablet TAKE ONE [...] capsule at bedtime as needed Orally daily Citalopram Hydrobromide 40 mg Tablet TAKE ONE TABLET BY MOUTH At Bedtime Taking MgO 400 (240 Mg) MG Tablet 1 tablet with food Orally Once a day Taking Levothyroxine Sodium 25 mcg Tablet TAKE [...] TAKE ONE TABLET BY MOUTH At Bedtime Not-TakingFurosemide 20 MG Tablet TAKE 1 TABLET BY MOUTH ONCE DAILY Carisoprodol 350 MG Tablet 1 tablet as [...] as needed Orally Three times a day Medication List reviewed and reconciled with the patientNot-Taking Furosemide 20 MG Tablet TAKE 1 TABLET BY MOUTH ONCE DAILY Not-Taking Carisoprodol 350 MG Tablet 1 tablet as needed Orally Four times a day Not-Taking Ondansetron 4 MG Tablet Disintegrating 1 tablet on the tongue and allow to dissolve Orally Once a day Not-Taking Vitamin B Complex - Capsule as directed Orally Not-Taking Vitamin C 500 MG Capsule as directed Orally Not-Taking Myrbetriq 50 mg Tablet Extended Release [...] as needed Orally Three times a day Medication List reviewed and reconciled with the patient * Allergies: I sotretinoin - Criticality UnknownPenicillin - Criticality UnknownNaproxen - Criticality UnknownNefazodone - Criticality UnknownInfluenza Virus Vaccine Live - Criticality UnknownErythromycin Base - Criticality UnknownyesAllergies Verified. Objective: * Vitals: H t: 71 in, Wt:204lbs, Wt-k.53 kg, BMI:28.45Index, Temp:96.9F, BP:120/70mm Hg, HR:92/min, Oxygen sat %:94%, O2 Source: RA, Pain scale: 8 1-10, Ht-cm: 180.34 cm. * Examination: E xamination: GENERAL APPEARANCE: A wake/alert. No apparent distress.? NECK/THYROID: S upple without lymphadenopathy, thyromegaly, thyroid masses, or carotid bruits. HEART: R egular rate and rhythm without rubs, murmurs, or gallops. PMI nondisplaced. LUNGS: C lear to auscultation without rales, rhonchi, wheezing, tachypnea or air hunger. ABDOMEN: S oft, nontender, nondistended with active bowel sounds X4. No HSM or masses. MUSCULOSKELETAL: p retibial cellulits. ? Assessment: * Assessment: 1. C ellulitis of pretibial region - L03.119 (Primary) Plan: * Treatment: * Therapeutic Injections: Rocephin/Ceftriaxone 1 Gram (per 250 mg) : 1 g (Route: Intramuscular) given by Shweta Brandt on left hip (Cellulitis of pretibial region) * Procedure Codes: 3 078F DIAST BP < 80 MM [id number] SYST BP LT 130 MM [id number] Rocephin/Ceftriaxone 1 Gram (per 250 mg)93695 THER/PROPH/DIAG INJ, SC/IM * Preventive Medicine: Fall Risk Assessment: F [...] measure. No mapping from this section.) * Billing Information: * Visit Code: 02725 Office Visit, Est Pt., Level 4. * Procedure Codes: 3078F DIAST BP < 80 MM HG. 3074F SYST BP LT 130 MM HG. J0696 Rocephin/Ceftriaxone 1 Gram (per 250 mg). 29622 THER/PROPH/DIAG INJ, SC/IM. Care Plan Details* * Electronic signature of Tera Woo MD on 01/13/2025 at 08:45 AM CDT Sign off status: Pending * Provider: Erin Woo MD Date: 0 01/12/2025 Generated for Anthony callahan/Angel/Brian on: 0 01/13/2025 08:45 AM CDT
[2025-01-13] VITALS (11 sets, daily range): BP systolic 94–111; BP diastolic 58–79; PULSE 70–90; RESP 15–20; TEMP 36.4–36.6; O2SAT 90–97; BMI 36.2
--- OUTSIDE RECORDS SUMMARY | 2025-01-13 08:45 | XMS_ITS | Encounter Summary ---
Author Organization [facility] Address [address] [place] [address] Care Team Providers Care Lathe Machine Operator Name Role Phone Gen Suresh MD Primary Care Provider [phone] Encounter Details Date Type Department Care Team (Latest Contact Info) Description 07/31/2016 Ancillary Orders [facility] Pre-Registration [place] CALL TO MAKE APPOINTMENT ONLY [address] [place] [address] Bill Delong MD [address] [place] [address] Spinal stenosis, cervical region Social History Tobacco Use Types Packs/Day Years Used Date Smoking Tobacco: Never Alcohol Use Standard Drinks/Week Comments No 0 (1 standard drink = 0.6 oz pur e alcohol) Sex and Gender Information Value Date Recorded Sex Assigned at Not on file 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 Exam: XR CHEST PA AND LATERAL Date/Time of Exam: 08/02/2016 12:40 PM Reason For Exam: Spinal stenosis, cervical region. Findings: Sternotomy changes and mild cardiomegaly are present. Cardiac pacer and leads are unremarkable. The lungs are clear. The pleural spaces are normal. IMPRESSION: Mild cardiomegaly. Narrative Procedure Note Henri Mahmood MD - 08/02/2016 IMPRESSION IMPRESSION: Please see below. Exam: XR CHEST PA AND LATERAL Date/Time of Exam: 08/02/2016 12:40 PM Reason For Exam: Spinal stenosis, cervical region. Findings: Sternotomy changes and mild cardiomegaly are present. Cardiac pacer and leads are unremarkable. The lungs are clear. The pleural spaces are normal. IMPRESSION: Mild cardiomegaly. us Bill Delong MD DIAGNOSTIC IMAGING ORDER MEKHI Final Result documented in this encounter Visit Diagnoses Diagnosis Spinal stenosis, cervical region Spinal stenosis, cervical region documented in this encounter Care Teams Lathe Machine Operator Relationship Specialty Start Date End Date Gen Suresh MD [address] [place] [address] [place] [id number] PCP - General Family Practice 08/02/16 documented as of this encounter
--- OUTSIDE RECORDS SUMMARY | 2025-01-13 08:45 | XMS_ITS | Patient Health Record ---
Author Organization [facility] Address [address] [place] [address] Care Team Providers Care Business Performance Advisor Name Role Phone Moe Woo Primary Care Provider Aldo Rincon Unavailable [phone] Nydia Olsen Unavailable [phone] Allergies Allergen (clinical drug ingredient) Drug/Non Drug Allergy documented on EMR Reaction Allergy Type Onset Date Status erythromycin Erythromycin Base Unknown Drug Allergy Active Influenza Virus Vaccine Live Unknown Drug Allergy Active naproxen Naproxen Unknown Drug Allergy Active isotretinoin Isotretinoin Unknown Drug Allergy A ctive nefazodone Nefazodone Unknown Drug Allergy Activ e Penicillin Unknown Drug Allergy Active Results Component Value Reference Range Notes UA Without Micro-[place], [place] - [id number] Reviewed date:06/25/2024 10:28:55 AM Interpretation: Performing Lab: Notes/Report: Glucose 0 Bili 0 Ketones 0 Sp [place] 1.005 Blood 0 pH 6.0 Protein 0 Urobili 0 Nitrites 0 Leukocytes 0 UA Without Micro-[place], [place] - [id number] Reviewed date:04/23/2024 10:30:04 AM Interpretation: Performing Lab: Notes/Report: Glucose - Bili - Ketones - Sp [place] 1.020 Blood - pH 6.0 Protein +- Urobili - Nitrites - Leukocytes - UA Without Micro-[place], [place] - [id number] Reviewed date:03/17/2024 09:48:28 AM Interpretation: Performing Lab: Notes/Report: Glucose - Bili - Ketones - Sp [place] 1.015 Blood - pH 5.5 Protein +- Urobili - Nitrites - Leukocytes - UA Without Micro-Auto, [place] - [id number] Reviewed date:12/23/2024 02:35:03 PM Interpretation: Performing Lab: Notes/Report: Glucose 0 Bili 1+ Ketones 0 Sp [place] 1.025 Blood 0 pH 6.0 Protein 0 Urobili 0 Nitrites 0 Leukocytes 0 PSA Diagnostic--[id number] Reviewed date:04/27/2024 11:56:52 AM Interpretation: Performing Lab: Notes/Report: Diagnosis Description: Encounter for screening for malignant neoplasm of prostate PSA .31 .00-4.00 NG/ML PSA concentra tions, regardless of the value, should not be interpreted as definitive evidence for the presence or absence of prostate cancer. US Breast Right Limited-[id number] 2 Reviewed date:10/19/2024 04:22:12 PM Interpretation: Performing Lab: Notes/Report: Mammogram Digital Breast Brandt osynthesis, unilateral [place] - [id number] Reviewed date:10/07/2024 03:58:30 PM Interpretation: Performing Lab: Notes/Report: Reason For Referral Reason Referring to Dr Kizzy Lockwood at [facility] for IPP. Thank you! Diagnosis 1 Erectile disorder (N 52.9) Referral Organization [facility] Referring Provider First Name Aldo Referring Provider Last Name Mckenzie Referring Provider Speciality Urology Referral Priority Routine Reason chronic pain Diagnosis 1 Chronic pain syndrom e (G89.4) Referring Provider First Name Tyler alicia Referring Provider Last Name Chilo Referring Provider Speciality Internal M edicine Referred Organization [facility] Referred Provider Damian Lopez Referred Address [address] [place] [address], General Notes Ankita George 01/07 09:25:07 AM CDT > atc Ferny hobbs Katrina 01/07/2025 09:34:35 AM CDT > Patient called and got scheduled for NUTRITION FACULTY MEMBER appt. Sent ppwk. , Sent thank you letter Referral Priority Routine Reason chronic pain Diagnosis 1 Chronic pain syndrom e (G89.4) Referral Organization [facility] Referring Provider First Name Tyler alicia Referring Provider Last Name Chilo Referring Provider Speciality Internal M edicine Referred Provider Damian Lopez Referred Provider Specialty Intervention al Pain Medicine General Notes Shweta Brandt 11:50:26 AM CDT > faxed Mahad Brennan Heidi 01/07/2025 10:46:47 AM CDT > PER FAX PT IS SCHEDULED 03/31 @ 10:20 Referral Priority Routine Referral Appointment Date 03/31/2025 Medications Medication SIG (Take, Route, Frequency, Duration) Notes Start Date End Date Status ARIPiprazole 5 mg Tablet TAKE ONE TABLET BY MOUTH EVERY DAY; Duration: 28 Active Vitamin C 500 MG Capsule as directed Orally Not-Taking Tamsulosin HCl 0.4 mg Capsule TAKE ONE CAPSULE BY MOUTH TWICE DAILY; Duration: 30 Active Vitamin B Complex - Capsule as directed Orally Not-Takin g Metoprolol Succinate ER 25 MG Tablet Extended Release 24 Hour 1 tablet Orally Once a day Active Ondansetron 4 MG Tablet Disintegrating 1 tablet on the tongue and allow to dissolve Orally Once a day Not-Taking Levothyroxine Sodium 25 mcg Tablet TAKE ONE TABLET BY MOUTH EVERY MORNING ON a EMPTY stomach; Duration: 30 Active Carisoprodol 350 MG Tablet 1 tablet as needed Orally Four times a day Not-Taking Buprenorphine HCl-Naloxone HCl 2-0.5 MG Tablet Sublingual 1 Sublingual bid; Duration: 30 days 01/04/2025 05/04/2025 Active Solifenacin Succinate 5 MG Tablet 1 tablet Orally Once a day; Duration: 90 days 12/23/2024 Active Solifenacin Succinate 5 mg Tablet TAKE ONE TABLET BY MOUTH EVERY DAY; Duration: 30 Not-Taking Myrbetriq 50 MG Tablet Extended Release 24 Hour 1 tablet Orally Once a day; Duration: 90 days 12/23/2024 Active predniSONE 20 MG Tablet 1 tablet with fo od or milk Orally Once a day; Duration: 7 days 12/09/2024 Not-Taking Belsomra 20 MG Tablet 1 tablet at bedtim e as needed Orally Once a day; Duration: 30 days 09/22/2024 02/19/2025 Active Myrbetriq 50 mg Tablet Extended Release 24 Hour TAKE ONE TABLET BY MOUTH ONCE DAILY; Duration: 30 Not-Taking MgO 400 (240 Mg) MG Tablet 1 tablet with food Orally Once a day Active Furosemide 20 MG Tablet TAKE 1 TABLET BY MOUTH ONCE DAILY; Duration: 30 Not-Taking Citalopram Hydrobromide 40 mg Tablet TAKE ONE TABLET BY MOUTH At Bedtime; Duration: 30 Active tiZANidine HCl 4 MG Capsule 1 capsule at bedtime as needed Orally daily; Duration: 30 days 01/04/2025 Active Ibuprofen 600 MG Tablet 1 tablet with fo od or milk as needed Orally Three times a day Not-Taking HYDROcodone-Acetaminophen 10-325 MG Tablet 1 tablet as needed Orally every 6 hrs Not-Taking Doxycycline Hyclate 100 MG Tablet 1 tablet Orally twice a day; Duration: 10 days 01/12/2025 01/22/2025 Active Social History Tobacco Use: Social History Observation Description Date Details (start date - stop date) Never Smoker NA - NA Social History Depression Screening Social Info Question Answer Notes depression screening findings Findings Negative (0 -4) PHQ-9 Little interest or p luis e in doing things Several days Feeling down, depressed, or hopeless [...] all Total Score 8 Interpretation Mild Depression Drugs/Alcohol: Social Info Question Answer Notes Alcohol Screen (Audit-C) Did you have a drink containing alcohol in the past year? Yes How often did you have a drink containing alcohol in the past year? Monthly or less (1 point) Points 1 Interpretation Negative Drugs Have you used drugs other than those for medical reasons in the past 12 months? No Comprehensive Health Assessm ent Social Info Question [...] Notes: CIME Dep/Tob 11/16/24 CIME Dep/Tob 01/05/2025 CIME Dep/Tob 11/16/24 CIME Dep/Tob 01/05/2025 CIME Dep/Tob 11/16/24 CIME Dep/Tob 11/16/24 CIME Dep/Tob 11/16/24 CIME Dep/Tob 11/16/24 CIME Dep/Tob 11/16/24 CIME Dep/Tob 11/16/24 CIME Dep/Tob 01/05/2025 CIME Dep/Tob 11/16/24 Problems Problem Type SNOMED Code ICD Code Onset Dates Problem Status W/U Status Risk Notes Problem Primary insomnia (7872382) Primary insomnia (F51.01) Active confirmed Problem Chronic pain syndrome (118828838) Chronic pain syndrome (G89.4) Active confirmed Problem Hematoma (01194169) Hematoma (T14.8XXA) Active confirmed Problem Urinary frequency (462995373) Urinary frequency (R35.0) Active confirmed Problem Edema (846446186) Lower extremity edema (R60.0) Active confirmed Problem Urgent desire to urinate (18221705) Urinary urgency (R39.15) Active confirmed Problem Secondary erectile dysfunction (disorder) (989039040) ED (erectile dysfunction) of organic origin (N52.9) Active confirmed Problem Breast lump (26455455) Breast mass in male (N63.0) Active confirmed Problem 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 (B88.0) Active confirmed Problem Cardiac pacemaker in situ (501507998) Pacemaker (Z95.0) Active confirmed Problem Benign prostatic hypertrophy with outflow obstruction (820693438) BPH loc w urin obs/LUTS (N40.1) Active confirmed Problem Bursitis of shoulder (491504836) Subscapular bursitis (M75.50) Active confirmed Problem Primary hypertension (36939953) Primary hypertension (I10) Active confirmed Problem Erectile dysfunction (disorder) (813886693) Erectile disorder (N52.9) Active confirmed Vital Signs Heart Rate 92 /min 01/12/2025 Temperature 96.9 degrees Fahrenheit 01/12/2025 Respiratory Rate 17 /min 01/05/2025 Oximetry 94 % 01/12/2025 Height-cm 180.34 cm 01/12/2025 Blood pressure diastolic 70 mm Hg 01/12/2025 Weight-kg 92.53 kg 01/12/2025 Height 71 in 01/12/2025 Blood pressure systolic 120 mm Hg 01/12/2025 Weight 204 lbs 01/12/2025 BMI 28.45 kg/m2 01/12/2025 Procedures Procedure Date Ordered Date Performed Result Body Sit e PVR (Post Void Residual) 03/17/2024 03/17/2024 N/A PVR (Post Void Residual) 12/23/2024 12/23/2024 N/A Encounters Encounter Location Date Provider Diagnosis [facility] [address] [address] 01/05/2025 Moe Woo Positive depression screening Z13.31 ; Encounter for Medicare annual wellness exam Z00.00 and Depression screening Z13.31 [facility] [address] [place] [address] 01/12/2025 Moe Woo Cellulitis of pretibial region L03.119 [facility] [address] [place] [address] Dr [address] [place] [address] 03/17/2024 Aldo Rincon Erectile disorder N52.9 ; BPH loc w urin obs/LUTS N40.1 and Prostate cancer screening Z12.5 [facility] [address] [place] [phone] 04/06/2024 Moe Woo Cellulitis of pretibial region L03.119 [facility] [address] [place] [phone] 04/20/2024 Moe Woo Screening for prostate cancer Z12.5 [facility] [address] [place] [address] Dr [address] [place] [address] 04/23/2024 Aldo Rincon BPH loc w urin obs/LUTS N40.1 [facility] [address] [place] [phone] 05/26/2024 Moe Woo Acute contact dermatitis L25.9 and Primary hypertension I10 [facility] [address] [place] [address] Dr [address] [place] [address] 06/25/2024 Nydia Olsen Urinary frequency R35.0 ; BPH loc w urin obs/LUTS N40.1 and Erectile dysfunction N52.9 [facility] [address] [place] [address], [place] [address] 09/10/2024 Moe Woo Hematoma T14.8XXA and Breast mass in male N63.0 [facility] [place] 11/04/2024 Moe Woo Primary hypertension I10 and BPH loc w urin obs/LUTS N40.1 [facility] [address] [place] [address], [place] [address] 11/16/2024 Moe Woo Lower extremity edema R60.0 ; Primary hypertension I10 and Depression screen Z13.31 [facility] [address] [place] [address] 12/09/2024 Moe Woo Cellulitis of left lower extremity L03.116 [facility] [address] [place] [address], [place] [address] 12/16/2024 Moe Woo Lower extremity edema R60.0 [facility] [address] [place] [address] Dr [address] [place] [address] 12/23/2024 Nydia Olsen BPH loc w urin obs/LUTS N40.1 ; Erectile disorder N52.9 ; Urinary frequency R35.0 and Urinary urgency R39.15 [facility] [address] [place] [phone] 01/04/2025 Moe Woo Chronic pain syndrome G89.4 ; Primary hypertension I10 and ED (erectile dysfunction) of organic origin N52.9 [facility] [place] 01/11/2025 Moe Woo Primary hypertension I10 and Chronic pain syndrome G89.4 [facility] [address] [place] [address] Dr [address] [place] [address] 04/20/2024 Aldo Rincon Screening for prostate cancer Z12.5 [facility] [address] [place] [phone] 05/04/2024 Moe Woo Primary insomnia F51.01 [facility] [address] [place] [address] 09/14/2024 Moe Woo Breast mass in male N63.0 [facility] [address] [place] [address] 09/22/2024 Moe Woo Primary insomnia F51.01 [facility] [place] 11/03/2024 Moe Woo Primary hypertension I10 and BPH loc w urin obs/LUTS N40.1 [facility] [place] 12/08/2024 Moe Woo Primary hypertension I10 and Primary insomnia F51.01 [facility] [address] [place] [address], [place] [address] 12/23/2024 Nydia Olsen Encounter for screening for malignant neoplasm of prostate Z12.5 [facility] [address] [place] [phone] 01/04/2025 Moe oWo Chronic pain syndrome G89.4 Assessments Encounter Date Diagnosis (ICD Code) Assessment Notes Treatment Notes Treatment Clinical Notes Section Notes 03/17/2024 Erectile disorder (ICD-10 - N52.9) t 04/23/2024 BPH loc w urin obs/LUTS (ICD-10 - N40.1) 05/04/2024 Primary insomnia (ICD-10 - F51.01) 05/26/2024 Acute contact dermatitis (ICD-10 - L25.9) 03/17/2024 BPH loc w urin obs/LUTS (ICD-10 - N40.1) t 04/06/2024 Cellulitis of pretibial region (ICD-10 - L03.119) p 04/20/2024 Screening for prostate cancer (ICD-10 - Z12.5) 04/20/2024 Screening for prostate cancer (ICD-10 - Z12.5) 09/10/2024 Hematoma (ICD-10 - T14.8XXA) 09/10/2024 Breast mass in male (ICD-10 - N63.0) 09/14/2024 Breast mass in male (ICD-10 - N63.0) 09/22/2024 Primary insomnia (ICD-10 - F51.01) 11/03/2024 Primary hypertension (ICD-10 - I10) 11/03/2024 BPH loc w urin obs/LUTS (ICD-10 - N40.1) 11/04/2024 Primary hypertension (ICD-10 - I10) 11/04/2024 BPH loc w urin obs/LUTS (ICD-10 - N40.1) 11/16/2024 Lower extremity edema (ICD-10 - R60.0) 11/16/2024 Primary hypertension (ICD-10 - I10) 12/08/2024 Primary hypertension (ICD-10 - I10) 12/08/2024 Primary insomnia (ICD-10 - F51.01) 12/09/2024 Cellulitis of left lower extremity (ICD-10 - L03.116) 12/16/2024 Lower extremity edema (ICD-10 - R60.0) Cellulits is improving. 12/23/2024 BPH loc w urin obs/LUTS (ICD-10 - N40.1) 12/23/2024 Erectile disorder (ICD-10 - N52.9) 12/23/2024 Encounter for screening for malignant neoplasm of prostate (ICD-10 - Z12.5) 01/04/2025 Chronic pain syndrome (ICD-10 - G89.4) 01/04/2025 Primary hypertension (ICD-10 - I10) 01/04/2025 Chronic pain syndrome (ICD-10 - G89.4) 01/05/2025 Positive depression screening (ICD-10 - Z13.31) Depression screening performed using PHQ-9 depression scale. Score greater than 5 indicating possible moderate depression. Plan of care discussed with patient and implemented accordingly, including any medications, referrals, education tools, and follow-up evaluations as deemed appropriate.. *Please list patient's current problem list with appropriate and specific ICD-10's. 06/25/2024 Urinary frequency (ICD-10 - R35.0) PLAN - PATIENT ADVISED MYRBETRIQ WAS HELPING SOME, HE WOULD LIKE TO CONTINUE THIS, HE HAS ENOUGH REFILLS, CURRENTLY. 06/25/2024 BPH loc w urin obs/LUTS (ICD-10 - N40.1) PLAN - CONTINUE MONITORING SYMPTOMS, PVR WAS NOT COMPLETED TODAY, WILL BE COMPLETED NEXT VISIT 01/11/2025 Primary hypertension (ICD-10 - I10) 01/11/2025 Chronic pain syndrome (ICD-10 - G89.4) 01/12/2025 Cellulitis of pretibial region (ICD-10 - L03.119) 06/25/2024 Erectile dysfunction (ICD-10 - N52.9) PLAN - ALETHEA APPT. - WILL REFER TO [facility] AFTER FAILING ALETHEA, PATIENT ALREADY HAD ONE 01/05/2025 Encounter for Medicare annual wellness exam [...] problem list with appropriate and specific ICD-10's. 01/04/2025 ED (erectile dysfunction) of organic origin (ICD-10 - N52.9) 12/23/2024 Urinary frequency (ICD-10 - R35.0) 11/16/2024 Depression screen (ICD-10 - Z13.31) 03/17/2024 Prostate cancer screening (ICD-10 - Z12.5) t 05/26/2024 Primary hypertension (ICD-10 - I10) 12/23/2024 Urinary urgency (ICD-10 - R39.15) 01/05/2025 Depression screening (ICD-10 - Z13.31) Depression screening performed using PHQ-9 depression scale. Score greater than 5 indicating possible moderate depression. Plan of care discussed with patient and implemented accordingly, including any medications, referrals, education tools, and follow-up evaluations as deemed appropriate.. *Please list patient's current problem list with appropriate and specific ICD-10's. 03/17/2024 Other Continue tamsulosin Cysto next available. trial tadalafil 20mg. If he fails he may need referall for ALETHEA. Current psa. t 04/20/2024 Other patient here fo r PSA lab draw form Dr Mckenzie Venipuncture performed by Shweta Brandt. Left arm/hand. One attempt. Pt tolerated well, bleeding controlled with light dressing. Lab sent to [facility] via food and beverage attendant. 04/23/2024 Other ALETHEA appointment. If ALETHEA fails consider referral to [facility]. see Nurse practitieorn in 8-10 weeks to assess myrbetriq begin myrbetriq 50gm stop solifenacin continue tamsulosin 06/25/2024 Other FOLLOW UP IN 6 MONTHS WITH [facility] AND PVR, PATIENT NEEDS REFERRAL TO [facility], TO DR LOCKWOOD FOR PENILE IMPLANT CONSULTATION 12/23/2024 Other Patient continue to take Tamsulosin 0.4 mg for BPH CONTINUE MYRBETRIQ 50 MG DAILY AND SOLIFENACIN 5 MG DAILY FOR URGENCY AND FREQUENCY OF URINATION PATIENT WILL FOLLOW UP IN 6 MONTHS WITH PSA [facility] PVR VINAYAK Plan Of Treatment Future Test Test Name Order Date PSA Diagnostic--[id number] 04/29/2025 Next Appt Details Provider Name:Damian Lopez, 03/31/2025 10:20:00 AM, [address] [place], [address], Provider Name:Nydia Aviles, 06/25/2025 11:10:00 AM, [address], [address], [address], Insurance Providers Payer Name Payer Address Payer Phone Subscriber Number Group Number Insured Name Patient Relationship to Insured Coverage Start Date Coverage End Date [employer] Medicare Replacement [address] [address] [place] [address] [phone] [id number] Benjamin Walker Self - patient is the insured [place] Medicaid [address] [place] [address] [id number] Benjamin Walker Self - patient is the insured [place] Medicare [address] [facility] [address] [id number] Benjamin Walker Self - patient is the insured Medications Administered Medication Instructions Date of Administration Dosage Notes BUPivacaine HCl 04/16/2022 1 mL Subscapul ar Bursa BUPivacaine HCl 02/25/2023 1 mL DEPO-Medrol 04/16/2022 80 mg subscapular B ursa DEPO-Medrol 02/25/2023 80 mg dexAMETHasone 12/17/2022 10 mg dexAMETHasone 12/27/2023 10 mg dexAMETHasone 05/26/2024 10 mg dexAMETHasone 12/09/2024 10 mg Rocephin 04/06/2024 1 g Rocephin 12/09/2024 1 g Rocephin 01/12/2025 1 g Medical (General) History Medical History History ICD Code Left shoulder pain, unspecified chronici ty M25.512 Bladder irritation N32.89 Depression F32.9 Tricuspid valve regurgitation, nonrheuma tic I36.1 H/O aortic valve replacement Z95.2 Pacemaker Z95.0 Hypothyroidism E03.9 Erectile dysfunction N52.9 Overactive bladder N32.81 Lower urinary tract infection N39.0 Surgical History Surgery Date(Month/Year) rotator cuff surgery pacemaker Vasectomy penile implant at [facility]
--- OUTSIDE RECORDS SUMMARY | 2025-01-13 08:45 | XMS_ITS | Encounter Summary ---
Author Organization [facility] Address [address] [place] [address] Care Team Providers Care Helminthology Teacher Name Role Phone Gen Suresh MD Primary Care Provider [phone] Reason for Referral * Outpatient Services (Routine) - Closed Specialty Diagnoses / Procedures Referred By Contfrances lozano Referred To Contact Diagnoses Spinal stenosis of cervical region Procedures MRI CERVICAL WO CONTRAST Bill Delong MD Phone: tel: fax: [facility] Pre-Registration [place] CALL TO MAKE APPOINTMENT ONLY [address] [place] [address] Phone: tel: fax: Referral ID Status Reason Start Date Expiration Date V isits Requested Visits Authorized [id number] Closed [facility] TO SCHEDULE (SGF) 07/24/2016 08/23/2016 1 1 Encounter Details Date Type Department Care Team (Latest Contact Info) Description 07/25/2016 Ancillary Orders [facility] CALL TO MAKE APPOINTMENT ONLY [address] [place] [address] Bill Delong MD [address] [place] [address] Spinal stenosis of cervical region Social History Tobacco Use Types Packs/Day Years Used Date Smoking Tobacco: Never Alcohol Use Standard Drinks/Week Comments No 0 (1 standard drink = 0.6 oz pur e alcohol) Sex and Gender Information Value Date Recorded Sex Assigned at Not on file 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 Exam: MRI CERVICAL WO CONTRAST Date/Time of Exam: 08/02/2016 2:21 PM Reason For Exam: Spinal stenosis of cervical region. Technique: MRI of the cervical spine was performed without the administration of intravenous contrast. Findings: There is straightening of the alignment with mild anterolisthesis at C5-6. There is no evidence of bone marrow edema. There is no abnormal cord signal. C2-3: Unremarkable. C3-4: Small disc protrusion without significant narrowing of the spinal canal or foramina. C4-5: Unremarkable. C5-6: Small disc protrusion without significant narrowing of the spinal canal or foramina. C6-7: Broad-based disc protrusion and uncovertebral osteophytes result in mild narrowing of the spinal canal with ventral flattening of the cord contour. The right foramen is mildly narrowed. C7-T1: Small left paracentral disc protrusion with mild narrowing of the left-sided spinal canal and mild left foraminal narrowing. The visualized paraspinous soft tissues are unremarkable. IMPRESSION: Degenerative findings as described. There is mild spinal stenosis at C6-7 and C7-T1. No high-grade spinal stenosis. No abnormal cord signal. Refer to specific findings above for further details. [id number] Narrative Procedure Note Jose Stephenson MD - 08/02/2016 IMPRESSION IMPRESSION: Please see below. Exam: MRI CERVICAL WO CONTRAST Date/Time of Exam: 08/02/2016 2:21 PM Reason For Exam: Spinal stenosis of cervical region. Technique: MRI of the cervical spine was performed without the administration of intravenous contrast. Findings: There is straightening of the alignment with mild anterolisthesis at C5-6. There is no evidence of bone marrow edema. There is no abnormal cord signal. C2-3: Unremarkable. C3-4: Small disc protrusion without significant narrowing of the spinal canal or foramina. C4-5: Unremarkable. C5-6: Small disc protrusion without significant narrowing of the spinal canal or foramina. C6-7: Broad-based disc protrusion and uncovertebral osteophytes result in mild narrowing of the spinal canal with ventral flattening of the cord contour. The right foramen is mildly narrowed. C7-T1: Small left paracentral disc protrusion with mild narrowing of the left-sided spinal canal and mild left foraminal narrowing. The visualized paraspinous soft tissues are unremarkable. IMPRESSION: Degenerative findings as described. There is mild spinal stenosis at C6-7 and C7-T1. No high-grade spinal stenosis. No abnormal cord signal. Refer to specific findings above for further details. [id number] us Bill Delong MD MR ORDERABLES Final Re sult documented in this encounter Visit Diagnoses Diagnosis Spinal stenosis of cervical region Spinal stenosis in cervical region Spinal stenosis of cervical region Spinal stenosis in cervical region documented in this encounter Care Teams Helminthology Teacher Relationship Specialty Start Date End Date Gen Suresh MD [address] [place] [address] [place] [id number] PCP - General Family Practice 08/02/16 documented as of this encounter
--- OUTSIDE RECORDS SUMMARY | 2025-01-13 08:45 | XMS_ITS | Encounter Summary ---
Author Organization [facility] Address [address] [place] [address] Care Team Providers Care Fire Investigator Name Role Phone Gen Surehs MD Primary Care Provider [phone] Encounter Details Date Type Department Care Team (Latest Contact Info) Description 01/03/2007 Outpatient Historical [facility] Oral and Maxillo Surgery[address] [place] [phone] Lars Pierre, PRAFULS NO ADDRESS ON FILE Unspecified Dental Caries (Primary Dx) Social History Tobacco Use Types Packs/Day Years Used Date Smoking Tobacco: Never Assessed Sex and Gender Information Value Date Recorded Sex Assigned at Not on file 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
--- OUTSIDE RECORDS SUMMARY | 2025-01-13 08:45 | XMS_ITS | Encounter Summary ---
Author Organization [facility] Address [address] [place] [address] Care Team Providers Care Regulatory Associate Name Role Phone Gen Suresh MD Primary Care Provider [phone] Encounter Details Date Type Department Care Team (Late st Contact Info) Description 10/06/2013 Ancillary Orders [facility] Oral and Maxillo Surgery[address] [place] [phone] Manny Austin Jr., DMD NO ADDRESS ON FILE Unspecified dental caries (Primary Dx) Social History Tobacco Use Types Packs/Day Years Used Date Smoking Tobacco: Never Alcohol Use Standard Drinks/Week Comments No 0 (1 standard drink = 0.6 oz pur e alcohol) Sex and Gender Information Value Date Recorded Sex Assigned at Not on file 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 Gender Identity Not on file Sexual Orientation Not on file documented as of this encounter Plan of Treatment Not on file documented as of this encounter Results * XR PANOREX (10/07/2013 7:35 AM CDT) Anatomical Region Laterality Modality Head Computed Radiogr aphy Narrative 01/23/2014 5:09 PM CDT Panoramic Findings: Non restorable teeth Recommendation: removal of teeth Procedure Note Manny Austin Jr., DMD - 01/23/2014 Panoramic Findings: Non restorable teeth Recommendation: removal of teeth us Manny Austin Jr., DMD DIAGNOSTIC IMAGING ORDERABLES Final Result documented in this encounter Visit Diagnoses Diagnosis Unspecified dental caries- Primary documented in this encounter Care Teams Regulatory Associate Relationship Specialty Start Date End Date Gen Suresh MD [address] [place] [address] [place] [phone] PCP - General Family Practice 08/02/16 documented as of this encounter
--- OUTSIDE RECORDS SUMMARY | 2025-01-13 08:45 | XMS_ITS | Clinical Summary ---
Author Organization [facility] [facility] Address [address] [facility] Attn: Epic Prelude ADT JAY PANCHALYARIEL [address] Care Team Providers Care Sales Order Administrator Name Role Phone Gen Suresh MD Primary Care Provider [phone] Allergies Active Allergy Reactions Criticality Noted Date Comments Azithromycin Diarrhea Low 10/06/2013 Clindamycin Diarrhea Low 10/06/2013 Isotretinoin Rash Low 10/06/2013 Naproxen Hives High 10/06/2013 Nefazodone Rash,Swelling Low 10/06/2013 Penicillins Anaphylaxis High 10/06/2013 Active Problems Problem Noted Date Diagnosed Date 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 Overview (08/25/2020): Replaced in and 08 Heart attack 10/06/2013 Overview (08/25/2020): 2002 Fibromyalgia 10/06/2013 Heat stroke 10/06/2013 Overview (08/25/2020): Has had 2 Depression 10/06/2013 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 Dental impaction 10/06/2013 Social History Tobacco Use Types Packs/Day Years Used Date Smoking Tobacco: Never Alcohol Use Standard Drinks/Week Comments No 0 (1 standard drink = 0.6 oz pur e alcohol) Sex and Gender Information Value Date Recorded Sex Assigned at Not on file 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 Gender Identity Not on file Sexual Orientation Not on file Last Filed Vital Signs Vital Sign Reading Time Taken Comments Blood Pressure - - Pulse - - Temperature - - Respiratory Rate - - Oxygen Saturation - - Inhaled Oxygen Concentration - - Weight 79.4 kg (175 lb) 08/02/2016 1:21 PM CDT Height 180.3 cm (5' 11 ) 08/02/2016 1:21 PM CDT Body Mass Index 24.41 08/02/2016 1:21 PM CDT Plan of Treatment Health Maintenance Due Date Last Done Comments DTAP/TDAP/TD VACCINES (1 - Tdap) 1983 COLORECTAL SCREENING 2009 Colorectal Cancer Screening 2009 FIT-DNA Q 3 years 2009 FIT/FOBT Q 1 year 2009 Flex Sig/CT Colonography Q 5 years 2009 ZOSTER VACCINE (1 of 2) 2014 INFLUENZA VACCINE (#1) 2024 RSV VACCINE (60+ or ) (1 - 1-dose 75+ series) 2039 HEPATITIS B VACCINES Aged Out No long er eligible based on patient's age to complete this topic Medical Devices Implanted Type Area Hydraulic Barker Operator Device Identifier Shelf Expiration Date Model / Serial / Lot Ra Lead-01/22/2002 Implanted: 002 (Quantity not on file) Lead [employer] 5076-52 / [id number] / Description:This lead is par t of a MRI condtional pacemaker system.. ESHAatterson 07-30-16. Rv Lead-01/22/2002 Implanted: 002 (Quantity not on file) Lead [employer] 5076-58 / [id number] / Description:This lead is par t of a Medtronic condtional pacemaker system. ESHAatterson 07-30-16 Mri Condtitional Pacemaker-07/18/19 17 Implanted: 017 by Guicho Villar MD (Quantity not on file) Pacemaker [employer] ADVISA DR SHIRLEY [id number] / [id number] / Description:This is a MRI co ndtional pacemaker generator, [employer] Rep must be present for all MRI scans. ESHAatterson 07-30-16.[facility] Heart Care: [facility] , fax: [phone] Dr Borja is patient's general maintenance helper. Porcine Valve Replacement Valve Description:By Patient repor t and confirmed by Brittny at Dr Guicho Villar ([facility] Heart Care clinic) after review of medical records, this was placed in 2001. It is a biological tissue implant. JPatterson 07-30-16. Aortic Valve Repair/Replacemen t-08/22/1982 Implanted: 983 (Quantity not on file) Valve Description:Patient had aort ic repair procedure following crush injury to chest here at [facility]. No records remain regarding surgery or possible implants used and patient does not have any information regarding implants from this procedure. Per Dr Henri Mahmood, Chest Xray will be obtained prior to MRI scans to ensure no metallic implants are present, other than MRI conditonal pacemaker. [facility] 07-30-16 Care Teams Sales Order Administrator Relationship Specialty Start Date End Date Gen Suresh MD [address] [place] [address] [place] [address] PCP - General Family Practice 08/02/16
--- OUTSIDE RECORDS SUMMARY | 2025-01-13 08:45 | XMS_ITS | Clinical Summary ---
Author Organization [facility] Address [address] [place] [address] Care Team Providers Care Recruitment Coordinator Name Role Phone Gen Suresh MD Primary Care Provider [phone] Allergies Active Allergy Reactions Criticality Noted Date Comments Azithromycin Diarrhea Low 10/06/2013 Clindamycin Diarrhea Low 10/06/2013 Isotretinoin Rash Low 10/06/2013 Naproxen Hives High 10/06/2013 Nefazodone Rash,Swelling Low 10/06/2013 Penicillins Anaphylaxis High 10/06/2013 Medications CITALOPRAM HYDROBROMIDE (CELEXA ORAL) Take by mouth. Active ESZOPICLONE (LUNESTA ORAL) Take by mouth. Active HYDROcodone-aceta minophen (NORCO) 10-325 mg Tablet Take 1 Tab by mouth every 4 hours as needed. Active TRAZODONE HCL (TRAZODONE ORAL) Take by mouth daily at bedtime. Active azithromycin (ZITHROMAX) 250 mg tablet Take 250 mg by mouth daily. Take 2 tabs the first day and 1 tab days 2-5 Active oxyCODONE-acetami nophen (PERCOCET) 5-325 mg tablet Take 1 Tab by mouth every 4 hours as needed for Pain, Moderate. 30 Tab 0 10/19/2013 Active chlorhexidine gluconate 0.12 % Mouthwash 15 mL by Mouth/Throa t route 2 times daily. 480 mL 0 10/19/2013 Active ibuprofen (MOTRIN) 800 mg tablet Take 1 Tab by mouth every 6 hours as needed for Pain, Mild. 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 Dental impaction 10/06/2013 Social History Tobacco Use Types Packs/Day Years Used Date Smoking Tobacco: Never Alcohol Use Standard Drinks/Week Comments No 0 (1 standard drink = 0.6 oz pur e alcohol) Sex and Gender Information Value Date Recorded Sex Assigned at Not on file 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 Gender Identity Not on file Sexual Orientation Not on file Last Filed Vital Signs Vital Sign Reading Time Taken Comments Blood Pressure 115/79 10/19/2013 10:26 AM CDT Pulse 67 10/19/2013 10:26 AM CDT Temperature - - Respiratory Rate - - Oxygen Saturation 100% 10/19/2013 10:26 AM CDT Inhaled Oxygen Concentration - - Weight 79.4 [...] this topic Medical Devices Implanted Type Area Boat 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 ESHAatterson 07-30-16 Ra Lead-01/22/2002 Implanted: 002 (Quantity not on file) Lead [employer] 5076-52 / [id number] / Description:This lead is par t of a MRI condtional pacemaker system.. Stephane 07-30-16. Mri Condtitional Pacemaker-07/18/19 17 Implanted: 017 by Guicho Villar MD (Quantity not on file) Pacemaker [employer] ADVISA DR SHIRLEY [id number] / [id number] / Description:This is a MRI co ndtional pacemaker generator, Medtronic Rep must be present for all MRI scans. Stephane 07-30-16. [facility] Heart Care: [facility] , fax: [phone] Dr Borja is patient's warehouse engineer. Porcine Valve Replacement Valve Description:By Patient sharon lozano and confirmed by Brittny at Dr Guicho Villar ([facility] Heart Care clinic) after review of medical records, this was placed in 2001. It is a biological tissue implant. ESHAatterson 07-30-16. Aortic Valve Repair/Replacemen t-08/22/1982 Implanted: 983 (Quantity not on file) Valve Description:Patient had aort ic repair procedure following crush injury to chest here at [facility]. No records remain regarding surgery or possible implants used and patient does not have any information regarding implants from this procedure. Per Dr Henri Mahmood, Chest Xray will be obtained prior to MRI scans to ensure no metallic implants are present, other than MRI conditonal pacemaker. ESHAatterson 07-30-16 [facility] Care Teams Recruitment Coordinator Relationship Specialty Start Date End Date Gen Suresh MD [address] [place] [address] [place] [address] PCP - General Family Practice 08/02/16
[2025-01-13 09:10] LABS: Hematocrit 32.5 % (37-53); Hemoglobin 10.50 g/dL (11.27-16.99); Mean Corpuscular HGB Conc 32.3 g/dL (30-55); Mean Corpuscular Hemoglobin 31.0 pg (27-33); Mean Corpuscular Volume 95.9 fl (82-101); Nucleated Red Blood Cells % 0 %; Platelet Count 135 10^3/cmm (157-399); Red Blood Count 3.39 10^6/uL (3.85-5.65); White Blood Count 4.77 10^3/uL (3.29-11.43)
[2025-01-13 09:22] LABS: Lactic Sepsis W/Reflex 0.9 mmol/L (0.5-2.2)
[2025-01-13 09:23] LABS: Alanine Aminotransferase 14 U/L (0-41); Albumin Level 4.0 g/dL (3.5-5.2); Alkaline Phosphatase 204 U/L (40-130); Anion Gap 14.8 (5-19); Aspartate Amino Transferase 28 U/L (0-40); Blood Urea Nitrogen 17 mg/dL (8-23); Calcium 9.0 mg/dL (8.5-10.5); Carbon Dioxide 24 mmol/L (22-29); Chloride 103 mmol/L (98-107); Creatinine Clr Calc Pharmacy 68.4101; Globulin 2.7 g/dL (1.3-4.6); Glucose 87 mg/dL (65-115); Osmolality Calculated 287 mOsm/kg (285-295); Potassium 3.8 mmol/L (3.5-5.1); Sodium 138 mmol/L (136-145); Total Protein 6.7 g/dL (6.6-8.7)
[2025-01-13 09:24] LABS: Acetaminophen < 5.0 ug/mL (10-30); Alcohol Level < 10 mg/dL (0-10); Salicylate < 0.3 mg/dL (3-10)
[2025-01-13 09:32] LABS: Glucose Urine UA Negative (Normal); Nitrate Urine Negative (Negative); Specific Gravity, Urine 1.020 (1.005-1.030)
[2025-01-13 09:36] LABS: Add Urine Microscopic? YES
[2025-01-13 09:42] LABS: PCP Screen Urine Negative (Negative)
--- NOTE | 2025-01-13 10:10 | USCV_ITS ---
Benjamin Aquino Age: 59 Gender: M : 1965 Exam Date: 01/13/2025 11:07 Ordering Phys: Sen Oliva DO Technologist: RADHA [place] [facility] [place] Pain/Swelling HISTORY: Lower extremity pain. Lower extremity swelling. PROCEDURES: Venous duplex imaging was performed in only the left lower extremity. The following venous structures were evaluated: common femoral vein, profunda vein, proximal portion of the greater saphenous vein, superficial femoral vein, and the popliteal vein. In addition, the posterior tibial and peroneal trunk were evaluated. Serial compression, augmentation maneuvers, and spectral Doppler flow evaluation were performed. FINDINGS: Normal 2-D Doppler and augmentation and compressibility throughout the lower extremity venous structures. Additional imaging through the proximal calf veins also reveals no thrombus. Limited evaluation of the greater saphenous vein is patent with no thrombus. CONCLUSIONS No DVT left lower extremity. Dr. Matilde Trujillo DO (Electronically Signed) Final Date: 13 January 2025 13:39 S
--- NOTE | 2025-01-13 10:10 | W.ED.SKABFB ---
HPI - Skin/Abscess/Foreign Bdy General: Chief complaint: Skin/Abscess/Foreign Body Stated complaint: Hallucinations Time Seen by Provider: 01/13/25 08:34 History of Present Illness: 59-year-old male presents to the emergency room complaining of red swollen leg has been going on intermittently for 2 months. He seen his doctor yesterday was given a shot of antibiotics is not sure what it was then started on doxycycline. Patient presents today complaining of worsening redness and pain in his left lower leg. No fevers at home. He has had some hallucinations he is aware of them and realizes that things are not real. He has no other ongoing mental health issues he has not acutely suicidal. He is not anxious. Associated symptoms: Deny chills or fever(s) Related Data Home Medications ?Medication ?Instructions ?Recorded ?Confirmed hydrocodone 10 mg-acetaminophen 1 tab PO Q4H PRN Pain 07/30/19 01/13/25 325 mg tablet ibuprofen 600 mg tablet 600 mg PO BID 09/13/21 01/13/25 buprenorphine 2 mg-naloxone 0.5 mg 1 tab sublingual BID 01/13/25 01/13/25 sublingual tablet doxycycline hyclate 100 mg tablet 100 mg PO BID x10d 01/13/25 01/13/25 furosemide 20 mg tablet 20 mg PO DAILY 01/13/25 01/13/25 levothyroxine 25 mcg tablet 25 mcg PO QAM 01/13/25 01/13/25 magnesium oxide 400 mg PO DAILY 01/13/25 01/13/25 metoprolol succinate 25 mg 25 mg PO DAILY 01/13/25 01/13/25 tablet,extended release 24 hr mirabegron 50 mg tablet,extended 50 mg PO DAILY 01/13/25 01/13/25 release 24 hr (Myrbetriq) suvorexant 20 mg tablet (Belsomra) 20 mg PO BEDTIME PRN Sleep 01/13/25 01/13/25 tizanidine 4 mg tablet 4 mg PO BEDTIME 01/13/25 01/13/25 Previous Rx's ?Medication ?Instructions ?Recorded aripiprazole 5 mg tablet (Abilify) 5 mg PO DAILY #90 tabs 07/26/21 citalopram 40 mg tablet 40 mg PO BEDTIME #90 tabs 10/02/21 solifenacin 5 mg tablet (Vesicare) 5 mg PO DAILY #30 tabs 05/10/22 tamsulosin 0.4 mg capsule 0.4 mg PO BID #60 caps 05/10/22 Allergies Allergy/AdvReac Type Severity Reaction Status Date / Time isotretinoin (From Accutane) Allergy Severe ALGY-Swell Verified 09/03/24 10:12 Lip/Tongue/Throat Penicillins Allergy Severe ALGY-Anaphy Verified 09/03/24 10:12 laxis naproxen Allergy Intermediate ALGY-Rash Verified 09/03/24 10:12 nefazodone (From Serzone) Allergy Intermediate ADR/ALGY-Fl Verified 09/03/24 10:12 ushing influenza virus vaccine, Allergy Mild ADR-Vomitin Verified 09/03/24 10:12 specific g erythromycin base AdvReac Mild ADR-Vomitin Verified 09/03/24 10:12 g milk AdvReac Mild ADR-Dry Verified 09/03/24 10:12 Mucus Membranes Review of Systems Const: Denies: fever(s) or chills Card: Denies: chest pain Resp: Denies: dyspnea GI: Denies: abdominal pain : Denies: dysuria, urinary frequency or urinary urgency Musc: Denies: neck pain or back pain Skin/Breast: Denies: rash PFSH ED PFSH: Medical History Tricuspid valve regurgitation Atrial flutter by electrocardiogram Restless legs syndrome Insomnia, unspecified Acute meniscal tear of left knee Lower urinary tract symptoms Erectile dysfunction OAB (overactive bladder) Pacemaker Hypothyroidism, unspecified Surgical History S/P tricuspid valve replacement H/O arthroscopy of left knee S/P appendectomy History of heart valve repair History of tonsillectomy History of shoulder surgery Hx of decompressive lumbar laminectomy History of nasal septoplasty History of vasectomy History of esophagogastroduodenoscopy (EGD) Family History Mother , at age 80 Tick fever Dementia Father , at age 87 Heart disease Congestive heart failure (CHF) Stroke Family/Other Cancer Other Diabetes Denies family history of CAD (coronary artery disease) Clotting disorder Chronic kidney disease (CKD) Suicide Anesthesia complication Bleeding disorder Lung disease Social History Smoking and tobacco/nicotine status: never used tobacco/nicotine Alcohol intake: current Alcohol intake frequency: holidays/special occasions only Substance/Drug Use: never Adopted: No Caregiver/support person: No Lives independently: Yes Housing: House Marital status: Number of children: 1 Current occupational status: disabled Current gender identity: Male Physical Exam Const: GENERAL APPEARANCE: cooperative ORIENTATION/CONSCIOUSNESS: Yes awake HENMT: COMMON NORMALS: normocephalic, atraumatic and hearing grossly normal bilaterally HEAD & SCALP: normocephalic and atraumatic Resp: COMMON NORMALS: normal respiratory effort, No retractions, No use of accessory muscles and clear to auscultation bilaterally AUSCULTATION: clear to auscultation bilaterally Cardio: COMMON NORMALS: regular rate, regular rhythm and No murmurs present (Cardio) RATE: regular rate RHYTHM: regular rhythm GI: COMMON NORMALS: Soft to palpation and No hepatosplenomegaly present AUSCULTATION: Yes normoactive bowel sounds PALPATION: Yes Soft to palpation, No Tenderness to palpation present (GI), No Guarding due to palpation present (GI) and Yes No hepatosplenomegaly present Extremity: OTHER: Left lower leg reddened inflamed warm to the touch slight swelling Skin: COMMON NORMALS: no rashes or lesions noted GENERAL SKIN EXAM: no rashes or lesions noted Course Vital Signs: Vital signs: Vital Signs Temperature 97.6 F 01/13/25 15:40 Pulse Rate 71 01/13/25 15:40 Respiratory Rate 15 01/13/25 15:40 Blood Pressure 105/69 01/13/25 15:40 Pulse Oximetry 93 01/13/25 15:40 Oxygen Delivery Me thod Room Air 01/13/25 15:40 MDM - Skin/Abscess/Foreign Bdy Medicial Decision Making Patient is having hallucinations but is fully aware of it. He is mildly anemic but his white count is normal. He does have a mild acute kidney injury. Patient given IV fluids cultures done started vancomycin will place on observation discussed with hospitalist. venous duplex was negative. Patient also has mild ROSIBEL. Medical Records I reviewed the patient's medical records. Lab Data I reviewed the patient's lab results. 01/13/25 08:46 01/13/25 08:46 Laboratory Results WBC 4.77 10^3/uL (3.29-11.43) 01/13/25 08:46 RBC 3.39 10^6/uL (3.85-5.65) L 01/13/25 08:46 Hgb 10.50 g/dL (11.27-16.99) L 01/13/25 08:46 Hct 32.5 % (37-53) L 01/13/25 08:46 MCV 95.9 fl (82-101) 01/13/25 08:46 MCH 31.0 pg (27-33) 01/13/25 08:46 MCHC 32.3 g/dL (30-55) 01/13/25 08:46 RDW 13.8 % (12.1-15.1) 01/13/25 08:46 Plt Count 135 10^3/cmm (157-399) L 01/13/25 08:46 MPV 10.0 fL (7.4-10.4) 01/13/25 08:46 Neut % (Auto) 59.4 % 01/13/25 08:46 Lymph % (Auto) 27.7 % 01/13/25 08:46 [place] % (Auto) 9.6 % 01/13/25 08:46 Eos % (Auto) 2.3 % 01/13/25 08:46 Baso % (Auto) 0.6 % 01/13/25 08:46 Neut # (Auto) 2.83 10^3/uL (1.8-7.7) 01/13/25 08:46 Lymph # (Auto) 1.3 10^3/uL (0.8-4.8) 01/13/25 08:46 [place] # (Auto) 0.5 10^3/uL (0.2-0.9) 01/13/25 08:46 Eos # (Auto) 0.1 10^3/uL (0.0-0.8) 01/13/25 08:46 Baso # (Auto) 0.0 10^3/uL (0.0-0.1) 01/13/25 08:46 Nucleated RBC % (auto) 0 % 01/13/25 08:46 Nucleated RBCs # 0.0 /100WBC 01/13/25 08:46 Sodium 138 mmol/L (136-145) 01/13/25 08:46 Potassium 3.8 mmol/L (3.5-5.1) 01/13/25 08:46 Chloride 103 mmol/L (98-107) 01/13/25 08:46 Carbon Dioxide 24 mmol/L (22-29) 01/13/25 08:46 Anion Gap 14.8 (5-19) 01/13/25 08:46 BUN 17 mg/dL (8-23) 01/13/25 08:46 Creatinine 1.5 mg/dL (0.7-1.2) H 01/13/25 08:46 GFR Calculation 47.7 mL/min (90-130) L 01/13/25 08:46 Glucose 87 mg/dL (65-115) 01/13/25 08:46 Calculated Osmolality 287 mOsm/kg (285-295) 01/13/25 08:46 Lactic Acid 0.9 mmol/L (0.5-2.2) 01/13/25 08:46 Calcium 9.0 mg/dL (8.5-10.5) 01/13/25 08:46 Total Bilirubin 1.2 mg/dL (0.15-1.2) 01/13/25 08:46 AST 28 U/L (0-40) 01/13/25 08:46 ALT 14 U/L (0-41) 01/13/25 08:46 Alkaline Phosphatase 204 U/L (40-130) H 01/13/25 08:46 Total Protein 6.7 g/dL (6.6-8.7) 01/13/25 08:46 Albumin 4.0 g/dL (3.5-5.2) 01/13/25 08:46 Globulin 2.7 g/dL (1.3-4.6) 01/13/25 08:46 Urine Color Dark yellow (Yellow) A 01/13/25 09:20 Urine Appearance Clear (CLEAR) 01/13/25 09:20 Urine pH 5.5 (5-7) 01/13/25 09:20 Ur Specific [place] 1.020 (1.005-1.030) 01/13/25 09:20 Urine Protein Trace (Negative) A 01/13/25 09:20 Urine Glucose (UA) Negative (Normal) 01/13/25 09:20 Urine Ketones Trace (Negative) 01/13/25 09:20 Urine Blood Negative (Negative) 01/13/25 09:20 Urine Nitrate Negative (Negative) 01/13/25 09:20 Urine Bilirubin Negative (Negative) 01/13/25 09:20 Urine Urobilinogen 1.0 mg/dL (Negative) 01/13/25 09:20 Ur Leukocyte Esterase Negative (Negative) 01/13/25 09:20 Urine RBC 0-2 /hpf (0-2) 01/13/25 09:20 Urine WBC 0-5 /hpf (0-5) 01/13/25 09:20 Ur Squamous Epith Cells 0-5 /hpf (0-5) 01/13/25 09:20 Amorphous Sediment Not Reportable 01/13/25 09:20 Urine Bacteria None seen /hpf (NONE) 01/13/25 09:20 Hyaline Casts 1.21 /lpf 01/13/25 09:20 Salicylates < 0.3 mg/dL (3-10) L 01/13/25 08:46 Urine Opiates Screen Negative ng/mL (Negative) 01/13/25 09:20 Acetaminophen < 5.0 ug/mL (10-30) L 01/13/25 08:46 Ur Barbiturates Screen Negative ng/mL (Negative) 01/13/25 09:20 Ur Phencyclidine Scrn Negative ng/mL (Negative) 01/13/25 09:20 Ur Amphetamines Screen Negative ng/mL (Negative) 01/13/25 09:20 U Benzodiazepines Scrn Negative ng/mL (Negative) 01/13/25 09:20 Urine Cocaine Screen Negative ng/mL (Negative) 01/13/25 09:20 U Marijuana (THC) Screen Negative ng/mL (Negative) 01/13/25 09:20 Ethyl Alcohol < 10 mg/dL (0-10) 01/13/25 08:46 All radiology interpretation(s) finalized by discharge Discharge Plan Discharge Patient Disposition: Admitted As Inpatient Admit Provider: Gio Kevin Clinical Impression: Cellulitis, Hallucinations, ROSIBEL (acute kidney injury) Condition: Stable Coding Level of Care Code ED Mixed Animal Veterinarian for Magy Lee
[2025-01-13] MEDS: morphine 4 mg/mL SDV 1 mL 2 MG IVP (10:21)
--- NOTE | 2025-01-13 10:49 | PC.PHAR ---
Addendum entered by Diane Rios 01/13/25 11:46: Pt states he took his am medications and is alert but only sees things when he closes his eyes-a bag full of wheel chairs at his bedside. Addendum entered by Diane Rios 01/13/25 11:42: Found rx bottles behind pts head at bed frame. Verified all medications with [facility], also. Several new medications in the last month. Doxycycline is current abx therapy. Tizanidine 4mg and Suboxone 2-0.5 are new as of 01/04/25. Levothyroxine 25mcg, Lasix 20mg, Myrbetriq 50mg, and Belsomra 20mg are all new as of 12/18/24. Original Note: Pt too confused and thinks he gave EMS his bag of medications. [facility] is faxing current medication list 01/13/25 10:50am
--- NOTE | 2025-01-13 14:52 | PM.HP ---
Providers/Chief Complaint Admitting Physician: Gio Kevin Primary Care Provider: Raymond Woo MD Chief Complaint: Hallucinations History of Present Illness Benjamin Aquino is a 59 year old gentleman with a history of TVR, atrial flutter, restless legs syndrome (RLS), lower urinary tract symptoms (LUTS), benign prostatic hyperplasia (BPH), chronic kidney disease (CKD), hypothyroidism, and obstructive sleep apnea (intolerant of CPAP), presenting with worsening redness and pain of the left lower leg. Symptoms have been on and off for approximately two months, with worsening over the last few days. Started doxycycline yesterday without improvement. Reports seeing ?silhouettes? and things that are not there with eyes closed; episodes occurred even when fully awake this morning and have been happening ?a little while.? Denies history of schizophrenia; endorses depression and anxiety taking abilify, citalopram. Also reports intermittent sharp, shooting pain on the right side of the back of the head; notes associated neck tension when the pain occurs. Describes very dry mouth and a lesion on the lip that feels swollen; sometimes has cold sores. Cough with some phlegm yesterday and the day before; denies current nausea, vomiting, diarrhea, dark/tarry stools, hematochezia, hematuria, dysuria, or fevers. In the emergency department (ED), venous duplex of the left lower extremity showed no deep vein thrombosis (DVT). Received intravenous (IV) vancomycin and a fluid bolus. Chemistry showed acute kidney injury (ROSIBEL) on CKD with creatinine 1.5 mg/dL (baseline 1.1?1.3). Urinalysis unremarkable. Urine drug screen unremarkable. Vitals in ED: blood pressure 95/79 mmHg, pulse 76 beats/min, respiratory rate 20 breaths/min, temperature 97.9?F, oxygen saturation 97% on room air. Review of Systems Const: Reports: other (Interm pain in back of the head); Denies: fever(s), chills, body aches or malaise ENMT: Denies: throat pain Card: Denies: chest pain, edema, pre-syncope or dyspnea on exertion Resp: Reports: productive cough; Denies: dyspnea, change in phlegm color or hemoptysis GI: Denies: abdominal pain, nausea, vomiting, diarrhea, constipation, hematochezia or melena : Denies: flank pain, difficulty urinating, urinary frequency or hematuria Musc: Denies: back pain, joint swelling or joint redness Skin/Breast: Reports: pruritus and erythema (LLE) Neuro: Denies: headache(s) or confusion Medications/Allergies Home Medications ?Medication ?Instructions ?Recorded ?Confirmed ?Last Taken ?Type hydrocodone 10 mg-acetaminophen 1 tab PO Q4H PRN Pain 07/30/19 01/13/25 04/26/22 05:30 History 325 mg tablet aripiprazole 5 mg tablet (Abilify) 5 mg PO DAILY #90 tabs 07/26/21 01/13/25 01/13/25 Rx ibuprofen 600 mg tablet 600 mg PO BID 09/13/21 01/13/25 04/23/22 08:00 History citalopram 40 mg tablet 40 mg PO BEDTIME #90 tabs 10/02/21 01/13/25 01/12/25 Rx solifenacin 5 mg tablet (Vesicare) 5 mg PO DAILY #30 tabs 05/10/22 01/13/25 01/13/25 Rx tamsulosin 0.4 mg capsule 0.4 mg PO BID #60 caps 05/10/22 01/13/25 01/13/25 Rx buprenorphine 2 mg-naloxone 0.5 mg 1 tab sublingual BID 01/13/25 01/13/25 01/13/25 History sublingual tablet doxycycline hyclate 100 mg tablet 100 mg PO BID x10d 01/13/25 01/13/25 01/13/25 History furosemide 20 mg tablet 20 mg PO DAILY 01/13/25 01/13/25 01/13/25 History levothyroxine 25 mcg tablet 25 mcg PO QAM 01/13/25 01/13/25 01/13/25 History magnesium oxide 400 mg PO DAILY 01/13/25 01/13/25 01/13/25 History metoprolol succinate 25 mg 25 mg PO DAILY 01/13/25 01/13/25 01/13/25 History tablet,extended release 24 hr mirabegron 50 mg tablet,extended 50 mg PO DAILY 01/13/25 01/13/25 01/13/25 History release 24 hr (Myrbetriq) suvorexant 20 mg tablet (Belsomra) 20 mg PO BEDTIME PRN Sleep 01/13/25 01/13/25 Unknown History tizanidine 4 mg tablet 4 mg PO BEDTIME 01/13/25 01/13/25 01/12/25 History Allergies Allergy/AdvReac Type Severity Reaction Status Date / Time isotretinoin (From Accutane) Allergy Severe ALGY-Swell Verified 09/03/24 10:12 Lip/Tongue/Throat Penicillins Allergy Severe ALGY-Anaphy Verified 09/03/24 10:12 laxis naproxen Allergy Intermediate ALGY-Rash Verified 09/03/24 10:12 nefazodone (From Serzone) Allergy Intermediate ADR/ALGY-Fl Verified 09/03/24 10:12 ushing influenza virus vaccine, Allergy Mild ADR-Vomitin Verified 09/03/24 10:12 specific g erythromycin base AdvReac Mild ADR-Vomitin Verified 09/03/24 10:12 g milk AdvReac Mild ADR-Dry Verified 09/03/24 10:12 Mucus Membranes PFSH Acute PFSH: Medical History Tricuspid valve regurgitation Atrial flutter by electrocardiogram Restless legs syndrome Insomnia, unspecified Acute meniscal tear of left knee Lower urinary tract symptoms Erectile dysfunction OAB (overactive bladder) Pacemaker Hypothyroidism, unspecified Surgical History S/P tricuspid valve replacement H/O arthroscopy of left knee S/P appendectomy History of heart valve repair History of tonsillectomy History of shoulder surgery Hx of decompressive lumbar laminectomy History of nasal septoplasty History of vasectomy History of esophagogastroduodenoscopy (EGD) Family History Mother , at age 80 Tick fever Dementia Father , at age 87 Heart disease Congestive heart failure (CHF) Stroke Family/Other Cancer Other Diabetes Denies family history of CAD (coronary artery disease) Clotting disorder Chronic kidney disease (CKD) Suicide Anesthesia complication Bleeding disorder Lung disease Social History Smoking and tobacco/nicotine status: never used tobacco/nicotine Alcohol intake: current Alcohol intake frequency: holidays/special occasions only Substance/Drug Use: never Adopted: No Caregiver/support person: No Lives independently: Yes Housing: House Marital status: Number of children: 1 Current occupational status: disabled Current gender identity: Male Vitals/I&O/Wt Last Vital Signs Temp 97.9 F 01/13/25 08:40 Pulse 76 01/13/25 12:56 Resp 20 H 01/13/25 10:21 BP 95/79 01/13/25 12:12 Pulse Ox 97 01/13/25 12:12 O2 Del Method Room Air 01/13/25 13:09 01/12/25 01/13/25 01/13/25 22:59 06:59 14:59 Intake Total 1250 / 1250 Balance 1250 / 1250 Weight last 48 hrs Weight 94.12 kg Weight 117.934 kg Physical Exam Const: COMMON NORMALS: patient oriented x3 and alert GENERAL APPEARANCE: cooperative ORIENTATION/CONSCIOUSNESS: Yes awake HENMT: MOUTH: other (Dry, cracked MM) OTHER: No thrush. R angle of the mouth shallow ulcers with partial scab. No mass, swelling/fluctuance or lesions of the post R lower head. Neck/C-Spine: COMMON NORMALS: no JVD Resp: COMMON NORMALS: normal respiratory effort and clear to auscultation bilaterally AUSCULTATION: clear to auscultation bilaterally Cardio: COMMON NORMALS: no JVD, regular rhythm, S1 normal heart sound present, S2 normal heart sound present and No murmurs present (Cardio) RHYTHM: regular rhythm HEART SOUNDS: S1 normal heart sound present and S2 normal heart sound present GI: COMMON NORMALS: Normal to inspection, nondistended, normoactive bowel sounds present, Soft to palpation and non-tender PALPATION: Yes Soft to palpation Extremity: COMMON NORMALS: no joint enlargement and no pedal edema NARRATIVE EXTREMITY EXAM: LLE induration, erythema up 2/[address] of the LLE Small sores in artis stages of healing/scabbing. Small scabbed lsion of L dorsal foot. No blisters or drainage. Neuro: COMMON NORMALS: patient oriented x3 and moves all extremities SENSORIUM/ORIENTATION: Yes alert Skin: COMMON NORMALS: no rashes or lesions noted GENERAL SKIN EXAM: no rashes or lesions noted Data 01/13/25 08:46 01/13/25 08:46 Micro: Microbiology 01/13/25 08:46 Blood Culture - Preliminary Blood SPECIMEN COLLECTED 01/13/25 08:47 Blood Culture - Preliminary Blood SPECIMEN COLLECTED A&P Assessment and plan 1. Cellulitis: Left lower extremity cellulitis (recurrent) : Worsening left lower leg redness and pain over two months with recent exacerbation; started treatment but worsening. Venous duplex negative for DVT; received IV vancomycin in ED. Reviewed vitals, CBC, CMP, UA, UDS, venous duplex, EKG, ED provider note, discussed with the provider. - Continue IV vancomycin and aztreonam for cellulitis of the left lower extremity. Resume oral antibiotic at discharge. Monitor for risk of worsening ROSIBEL, C. difficile. - Add topical antifungal on feet and complete a course to help reduce recurrence. - Monitor vitals. - Check complete blood count (CBC). - With history of penicillin allergy with reported anaphylaxis, will not start ceftriaxone; give aztreonam together with continued vancomycin. 2. ROSIBEL (acute kidney injury): Acute kidney injury (ROSIBEL) on chronic kidney disease (CKD) : Creatinine 1.5 mg/dL (baseline 1.1?1.3) in the setting of mild dehydration. - Provide gentle IV hydration for mild dehydration with ROSIBEL. - Hold furosemide (Lasix) for now. - Continue gentle IV hydration; monitor for fluid overload. - Reassess volume status. - Reassess kidney function. 3. Herpes labialis: Lip lesion with history of cold sores; very dry, cracked mouth on exam. - Acyclovir 400 mg TID for herpes labialis. Monitor for risk of worsening ROSIBEL. 4. Hallucinations: Reports seeing silhouettes/visions while awake; has been occurring for a little while. Discussed that medications such as suvorexant (Belsomra) and solifenacin may contribute. - Reduce suvorexant (Belsomra) dose to 10 mg for now while having ROSIBEL (could cause psychiatric symptoms). - Note that solifenacin may contribute to psychiatric symptoms (anticholinergic effect). - Hold tizanidine for now as well. Plan: Intermittent sharp shooting head pain (right posterior) : Intermittent shooting pain on right side of back of head; no visible superficial lesions, no localized swelling, no palpable cord. - Obtain x-rays of the spine; shows no obvious anatomic abnormality. Obstructive sleep apnea : Known MARLENE; patient not using mask; considering Inspire device. Benign prostatic hyperplasia (BPH) with LUTS : Chronic BPH/LUTS. - Continue mirabegron (Myrbetriq) and tamsulosin (Flomax). Depression and anxiety : Chronic depression and anxiety; long-term aripiprazole use; on citalopram. - Continue citalopram for depression/anxiety. PDMP PDMP Reviewed: Not Reviewed Attestations Medical Necessity Statement*: Place observation for additional assessment and treatment of recurrent/nonresolving cellulitis, ROSIBEL, visual hallucinations/illusions. and High MDM includes amount and/or complexity of data reviewed/ordered [ previous or external records, resulted lab(s)/test(s), ordered lab(s)/test(s) and other healthcare professional discussion] and described risk of complication, morbidity or mortality of management as documented Diagnoses Cellulitis L03.90 ROSIBEL (acute kidney injury) N17.9 Herpes labialis B00.1 Hallucinations R44.3
--- NOTE | 2025-01-13 16:12 | XR_ITS ---
WS: [id number] XR cervical spine 3V* [id number] REASON FOR EXAM: Interm sharp shooting pain in R side lower back of head FINDINGS: Limited examination of the cervical spine. Incomplete lateral imaging due to body habitus. The cervical spine is normal to the C4 level on the lateral. The AP view of the cervical spine demonstrates no significant abnormality. XR/XR cervical spine 3V* [id number] IMPRESSION: Limited examination with no significant abnormality as above.
--- NOTE | 2025-01-13 16:13 | PHA.VACGOAL ---
Vancomycin Goal - Goal Vancomycin Goal:: 10-15 mg/L Vancomycin Indication:: Other - Therapy Current therapy:: Other Antibiotic (AZTREONAM) Day of therpy:: Day []of [] . Actual body weight (kg): 207 lb 8 oz - Data Labs: WBC 4.77 10^3/uL (3.29-11.43) 01/13/25 08:46 RBC 3.39 10^6/uL (3.85-5.65) L 01/13/25 08:46 Hgb 10.50 g/dL (11.27-16.99) L 01/13/25 08:46 Hct 32.5 % (37-53) L 01/13/25 08:46 MCV 95.9 fl (82-101) 01/13/25 08:46 MCH 31.0 pg (27-33) 01/13/25 08:46 MCHC 32.3 g/dL (30-55) 01/13/25 08:46 RDW 13.8 % (12.1-15.1) 01/13/25 08:46 Sodium 138 mmol/L (136-145) 01/13/25 08:46 Potassium 3.8 mmol/L (3.5-5.1) 01/13/25 08:46 Chloride 103 mmol/L (98-107) 01/13/25 08:46 Carbon Dioxide 24 mmol/L (22-29) 01/13/25 08:46 Anion Gap 14.8 (5-19) 01/13/25 08:46 BUN 17 mg/dL (8-23) 01/13/25 08:46 Creatinine 1.5 mg/dL (0.7-1.2) H 01/13/25 08:46 GFR Calculation 47.7 mL/min (90-130) L 01/13/25 08:46 Last dialysis session:: N/A Treatment plan:: new consult Regimen:: LOADING DOSE OF 1000 MG X 1 GIVEN IN ER MAINTENANCE DOSE OF 1000 MG Q12H PER DOSING PROTOCOL Follow up:: WILL CONTINUE TO MONITOR AND FOLLOW UP DAILY
--- NOTE | 2025-01-13 16:14 | ECG_ITS ---
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 Measurements Intervals [place] Rate: 82 P: 0 WV: 0 QRS: -74 QRSD: 194 T: 112 QT: 493 QTc: 579 Interpretive Statements ELECTRONIC VENTRICULAR PACEMAKER ABNORMAL RHYTHM ECG Compared to ECG 09/03/2024 10:57:09 No significant changes Electronically Signed On 01-13-2025 23:40:30 CDT by Rubi Stephenson M.D. [email or web address]
[2025-01-13] MEDS: aztreonam 1,000 MG in sodium chloride 0.9% (plus) 50 ML 100 MG IV (16:36)
[2025-01-13 16:49] LABS: Magnesium 2.4 mg/dL (1.7-2.3)
[2025-01-13] MEDS: HYDROcodone-acetaminophen 5-325 mg Tablet 1 TAB PO (17:26)
[2025-01-13 17:39] LABS: Respiratory Syncytial Virus Ce NEGATIVE (Negative); SARS-CoV-2 PCR NEGATIVE (Negative)
[2025-01-13] MEDS: MELATONIN 3 MG TABLET PO (23:56)
[2025-01-14] VITALS: BP 93/52; PULSE 74; RESP 16; TEMP 36.6; O2SAT 92
[2025-01-14] MEDS: HYDROcodone-acetaminophen 5-325 mg Tablet 1 TAB PO (01:49)
[2025-01-14 04:00] VITALS: BP 97/55; PULSE 71; RESP 17; TEMP 36.6; O2SAT 93
[2025-01-14] MEDS: aztreonam 1,000 MG in sodium chloride 0.9% (plus) 50 ML 100 MG IV (04:22)
[2025-01-14 05:13] LABS: Hematocrit 32.3 % (37-53); Hemoglobin 10.40 g/dL (11.27-16.99); Mean Corpuscular HGB Conc 32.2 g/dL (30-55); Mean Corpuscular Hemoglobin 31.8 pg (27-33); Mean Corpuscular Volume 98.8 fl (82-101); Nucleated Red Blood Cells % 0 %; Platelet Count 107 10^3/cmm (157-399); Red Blood Count 3.27 10^6/uL (3.85-5.65); White Blood Count 3.74 10^3/uL (3.29-11.43)
[2025-01-14 05:30] LABS: Alanine Aminotransferase 13 U/L (0-41); Albumin Level 3.8 g/dL (3.5-5.2); Alkaline Phosphatase 200 U/L (40-130); Aspartate Amino Transferase 30 U/L (0-40); Blood Urea Nitrogen 13 mg/dL (8-23); Calcium 8.7 mg/dL (8.5-10.5); Carbon Dioxide 20 mmol/L (22-29); Chloride 104 mmol/L (98-107); Creatinine Clr Calc Pharmacy 76.6926; Globulin 2.6 g/dL (1.3-4.6); Glucose 102 mg/dL (65-115); Osmolality Calculated 286 mOsm/kg (285-295); Sodium 138 mmol/L (136-145); Total Protein 6.4 g/dL (6.6-8.7)
[2025-01-14 05:32] LABS: Anion Gap 18.1 (5-19); Potassium 4.1 mmol/L (3.5-5.1)
[2025-01-14 06:00] VITALS: PULSE 71; BMI 29.9
[2025-01-14 07:14] VITALS: BP 100/62; PULSE 71; RESP 18; TEMP 36.6; O2SAT 93
[2025-01-14] MEDS: buprenorphine-naloxone 4-1 mg Film 0.5 EACH SUBLINGUAL (08:07)
--- NOTE | 2025-01-14 11:06 | PM.DCS ---
Discharge Providers Date of Admission: 01/13/25 11:43 Date of Discharge: January 14, 2025 Attending Provider at Admission: Gio Kevin Attending Provider at Discharge: Gio Kevin Primary Care Provider: Raymond Woo MD Diagnoses at Discharge Discharge Diagnosis 1. Cellulitis: 2. ROSIBEL (acute kidney injury): 3. Herpes labialis: 4. Hallucinations: Reason for Visit Reason for Visit: Hallucinations Brief History: Benjamin Aquino is a 59 year old gentleman with a history of TVR, atrial flutter, restless legs syndrome (RLS), lower urinary tract symptoms (LUTS), benign prostatic hyperplasia (BPH), chronic kidney disease (CKD), hypothyroidism, and obstructive sleep apnea (intolerant of CPAP), presenting with worsening redness and pain of the left lower leg. Symptoms have been on and off for approximately two months, with worsening over the last few days. Started doxycycline yesterday without improvement. Reports seeing ?silhouettes? and things that are not there with eyes closed; episodes occurred even when fully awake this morning and have been happening ?a little while.? Denies history of schizophrenia; endorses depression and anxiety taking abilify, citalopram. Also reports intermittent sharp, shooting pain on the right side of the back of the head; notes associated neck tension when the pain occurs. Describes very dry mouth and a lesion on the lip that feels swollen; sometimes has cold sores. Cough with some phlegm yesterday and the day before; denies current nausea, vomiting, diarrhea, dark/tarry stools, hematochezia, hematuria, dysuria, or fevers. In the emergency department (ED), venous duplex of the left lower extremity showed no deep vein thrombosis (DVT). Received intravenous (IV) vancomycin and a fluid bolus. Chemistry showed acute kidney injury (ROSIBEL) on CKD with creatinine 1.5 mg/dL (baseline 1.1?1.3). Urinalysis unremarkable. Urine drug screen unremarkable. Vitals in ED: blood pressure 95/79 mmHg, pulse 76 beats/min, respiratory rate 20 breaths/min, temperature 97.9?F, oxygen saturation 97% on room air. Hospital Course Hospital Course With ROSIBEL on presentation, hallucinations suspected due to toxic effect of some of his medications, he received gentle IV hydration with improvement in renal function, Lasix is held for now changed to as needed for worsening edema only. Solifenacin was held, suvorexant dose decreased to 10 mg. He is asked to discontinue and avoid ibuprofen/NSAIDs. He states has not been taking tizanidine. With improvement in renal function and medication adjustments hallucinations have resolved. Due to recurrent/unresolving cellulitis over the last 1 to 2 months, worsening over the preceding couple of days was started on IV antibiotic coverage initially with aztreonam and vancomycin. He did well without worsening of cellulitis while here. Showing mild improvement. Venous duplex was obtained and showed no DVT. In addition to antibiotic coverage she was started on antifungal for athlete's foot, discussed with him completing treatment has been found to reduce chance of recurrence of cellulitis. Given persistence/recurrence will add linezolid to doxycycline at discharge for more robust MRSA coverage. He knows to seek medical attention in case of worsening. He is also found to have herpes labialis for which he was started on acyclovir initially and will complete course with valacyclovir. Intermittent shooting pain in the back of the right side of his head, unclear etiology, possible mild radiculopathy with cervical spine disease. C-spine x-ray obtained, without major pathology. Please follow-up for improvement/resolution. Physical Exam Const: COMMON NORMALS: patient oriented x3 and alert GENERAL APPEARANCE: cooperative ORIENTATION/CONSCIOUSNESS: Yes awake HENMT: MOUTH: other (Dry, cracked MM) OTHER: No thrush. R angle of the mouth shallow ulcers with partial scab. No mass, swelling/fluctuance or lesions of the post R lower head. Neck/C-Spine: COMMON NORMALS: no JVD Resp: COMMON NORMALS: normal respiratory effort and clear to auscultation bilaterally AUSCULTATION: clear to auscultation bilaterally Cardio: COMMON NORMALS: no JVD, regular rhythm, S1 normal heart sound present, S2 normal heart sound present and No murmurs present (Cardio) RHYTHM: regular rhythm HEART SOUNDS: S1 normal heart sound present and S2 normal heart sound present GI: COMMON NORMALS: Normal to inspection, nondistended, normoactive bowel sounds present, Soft to palpation and non-tender PALPATION: Yes Soft to palpation Extremity: COMMON NORMALS: no joint enlargement and no pedal edema NARRATIVE EXTREMITY EXAM: Improving LLE induration, erythema up 2/[address] of the LLE Small sores in artis stages of healing/scabbing. Small scabbed lsion of L dorsal foot. No blisters or drainage. Neuro: COMMON NORMALS: patient oriented x3 and moves all extremities SENSORIUM/ORIENTATION: Yes alert Skin: COMMON NORMALS: no rashes or lesions noted GENERAL SKIN EXAM: no rashes or lesions noted Discharge Data Studies Completed and Pending Completed Studies During Hospitalization Category Date Time Status XR cervical spine 3V* 37090 Routine Exams 01/13/25 16:12 Completed US venous duplex lower extremity LT [CV venous duplex Ultrasound 01/13/25 10:10 [place] [address]] Stat Pending at discharge Category Date Time Status Blood Culture Stat Lab 01/13/25 08:46 Results Complete Blood Count w/Auto AM LABS Lab 01/15/25 04:00 Ordered Complete Blood Count w/Auto AM LABS Lab 01/16/25 04:00 Ordered Comprehensive Metabolic Panel AM LABS Lab 01/15/25 04:00 Ordered Comprehensive Metabolic Panel AM LABS Lab 01/16/25 04:00 Ordered Vancomycin Trough Timed Lab 01/15/25 09:00 Ordered Radiology Impressions Cervical Spine X-Ray 01/13/25 16:12 IMPRESSION: Limited examination with no significant abnormality as above. Laboratory Results WBC 3.74 10^3/uL (3.29-11.43) 01/14/25 04:32 RBC 3.27 10^6/uL (3.85-5.65) L 01/14/25 04:32 Hgb 10.40 g/dL (11.27-16.99) L 01/14/25 04:32 Hct 32.3 % (37-53) L 01/14/25 04:32 MCV 98.8 fl (82-101) 01/14/25 04:32 MCH 31.8 pg (27-33) 01/14/25 04:32 MCHC 32.2 g/dL (30-55) 01/14/25 04:32 RDW 13.8 % (12.1-15.1) 01/14/25 04:32 Plt Count 107 10^3/cmm (157-399) L 01/14/25 04:32 MPV 10.5 fL (7.4-10.4) H 01/14/25 04:32 Neut % (Auto) 57.4 % 01/14/25 04:32 Lymph % (Auto) 31.6 % 01/14/25 04:32 [place] % (Auto) 7.5 % 01/14/25 04:32 Eos % (Auto) 2.4 % 01/14/25 04:32 Baso % (Auto) 0.8 % 01/14/25 04:32 Neut # (Auto) 2.15 10^3/uL (1.8-7.7) 01/14/25 04:32 Lymph # (Auto) 1.2 10^3/uL (0.8-4.8) 01/14/25 04:32 [place] # (Auto) 0.3 10^3/uL (0.2-0.9) 01/14/25 04:32 Eos # (Auto) 0.1 10^3/uL (0.0-0.8) 01/14/25 04:32 Baso # (Auto) 0.0 10^3/uL (0.0-0.1) 01/14/25 04:32 Nucleated RBC % (auto) 0 % 01/14/25 04:32 Nucleated RBCs # 0.0 /100WBC 01/14/25 04:32 Sodium 138 mmol/L (136-145) 01/14/25 04:32 Potassium 4.1 mmol/L (3.5-5.1) 01/14/25 04:32 Chloride 104 mmol/L (98-107) 01/14/25 04:32 Carbon Dioxide 20 mmol/L (22-29) L 01/14/25 04:32 Anion Gap 18.1 (5-19) 01/14/25 04:32 BUN 13 mg/dL (8-23) 01/14/25 04:32 Creatinine 1.2 mg/dL (0.7-1.2) 01/14/25 04:32 GFR Calculation 61.8 mL/min (90-130) L 01/14/25 04:32 Glucose 102 mg/dL (65-115) 01/14/25 04:32 Calculated Osmolality 286 mOsm/kg (285-295) 01/14/25 04:32 Lactic Acid 0.9 mmol/L (0.5-2.2) 01/13/25 08:46 Calcium 8.7 mg/dL (8.5-10.5) 01/14/25 04:32 Magnesium 2.4 mg/dL (1.7-2.3) H 01/13/25 08:46 Total Bilirubin 1.2 mg/dL (0.15-1.2) 01/14/25 04:32 AST 30 U/L (0-40) 01/14/25 04:32 ALT 13 U/L (0-41) 01/14/25 04:32 Alkaline Phosphatase 200 U/L (40-130) H 01/14/25 04:32 Total Protein 6.4 g/dL (6.6-8.7) L 01/14/25 04:32 Albumin 3.8 g/dL (3.5-5.2) 01/14/25 04:32 Globulin 2.6 g/dL (1.3-4.6) 01/14/25 04:32 Urine Color Dark yellow (Yellow) A 01/13/25 09:20 Urine Appearance Clear (CLEAR) 01/13/25 09:20 Urine pH 5.5 (5-7) 01/13/25 09:20 Ur Specific [place] 1.020 (1.005-1.030) 01/13/25 09:20 Urine Protein Trace (Negative) A 01/13/25 09:20 Urine Glucose (UA) Negative (Normal) 01/13/25 09:20 Urine Ketones Trace (Negative) 01/13/25 09:20 Urine Blood Negative (Negative) 01/13/25 09:20 Urine Nitrate Negative (Negative) 01/13/25 09:20 Urine Bilirubin Negative (Negative) 01/13/25 09:20 Urine Urobilinogen 1.0 mg/dL (Negative) 01/13/25 09:20 Ur Leukocyte Esterase Negative (Negative) 01/13/25 09:20 Urine RBC 0-2 /hpf (0-2) 01/13/25 09:20 Urine WBC 0-5 /hpf (0-5) 01/13/25 09:20 Ur Squamous Epith Cells 0-5 /hpf (0-5) 01/13/25 09:20 Amorphous Sediment Not Reportable 01/13/25 09:20 Urine Bacteria None seen /hpf (NONE) 01/13/25 09:20 Hyaline Casts 1.21 /lpf 01/13/25 09:20 Salicylates < 0.3 mg/dL (3-10) L 01/13/25 08:46 Urine Opiates Screen Negative ng/mL (Negative) 01/13/25 09:20 Acetaminophen < 5.0 ug/mL (10-30) L 01/13/25 08:46 Ur Barbiturates Screen Negative ng/mL (Negative) 01/13/25 09:20 Ur Phencyclidine Scrn Negative ng/mL (Negative) 01/13/25 09:20 Ur Amphetamines Screen Negative ng/mL (Negative) 01/13/25 09:20 U Benzodiazepines Scrn Negative ng/mL (Negative) 01/13/25 09:20 Urine Cocaine Screen Negative ng/mL (Negative) 01/13/25 09:20 U Marijuana (THC) Screen Negative ng/mL (Negative) 01/13/25 09:20 Ethyl Alcohol < 10 mg/dL (0-10) 01/13/25 08:46 Influenza A (PCR) Negative (Negative) 01/13/25 16:45 Influenza Type B (PCR) Negative (Negative) 01/13/25 16:45 RSV (PCR) Negative (Negative) 01/13/25 16:45 SARS-CoV-2 (PCR) Negative (Negative) 01/13/25 16:45 Vitals Last Vital Signs Temp 97.9 F 01/14/25 07:14 Pulse 71 01/14/25 07:14 Resp 18 01/14/25 07:14 BP 100/62 01/14/25 07:14 Pulse Ox 93 01/14/25 07:14 O2 Del Method Room Air 01/14/25 07:14 Discharge Plan Discharge Patient Disposition: Home Condition: Stable Prescriptions: New linezolid 600 mg tablet 600 mg PO BID Qty: 14 0RF nystatin 100,000 unit/gram Cream 1 applic topical BID 14 Days Qty: 30 0RF Rx Instructions: Both feet valacyclovir 1 gram tablet 2,000 mg PO BID 1 Days Qty: 4 0RF Continued hydrocodone-acetaminophen 10-325 mg tablet 1 tab PO Q4H PRN (Reason: Pain) tamsulosin 0.4 mg capsule 0.4 mg PO BID Qty: 60 12RF aripiprazole [Abilify] 5 mg tablet 5 mg PO DAILY Qty: 90 3RF citalopram 40 mg tablet 40 mg PO BEDTIME Qty: 90 3RF tizanidine 4 mg tablet 4 mg PO BEDTIME levothyroxine 25 mcg tablet 25 mcg PO QAM doxycycline hyclate 100 mg tablet 100 mg PO BID buprenorphine-naloxone 2-0.5 mg tablet, sublingual 1 tab SUBLINGUAL BID mirabegron [Myrbetriq] 50 mg tablet extended release 24 hr 50 mg PO DAILY magnesium oxide 400 mg magnesium Tablet 400 mg PO DAILY metoprolol succinate 25 mg tablet extended release 24 hr 25 mg PO DAILY Changed Belsomra 20 mg tablet 10 mg PO BEDTIME PRN (Reason: Sleep) Qty: 1 0RF Rx Instructions: dose change furosemide 20 mg tablet 20 mg PO DAILY PRN (Reason: Edema) Qty: 1 0RF Rx Instructions: instruction change to PRN only Held solifenacin [Vesicare] 5 mg tablet 5 mg PO DAILY Qty: 30 12RF Hold Instructions: Resume on 01/16/25. Discontinued ibuprofen 600 mg tablet 600 mg PO BID Discharge Order = DC NOW: Discharge Order (Routine); Ordered 01/14/25 Ordered By: Gio Kevin Referrals: Raymond Woo MD [Primary Care Provider, Internal Medicine] - 01/21/25 9:20 am Patient Instructions: Opioid Safety, Patient Portal & Enoc Instructions Activity Restrictions/Additional Instructions: Complete antibiotic course with doxycycline, linezolid is added due to frequent recurrence. As discussed, finished treatment with topical antifungal of bilateral feet for athlete's foot to help reduce chance of recurrence of cellulitis. Elevate your leg when possible through the day to help reduce stasis while healing. Complete valacyclovir course for cold sore (herpes labialis). As discussed, avoid touching it so was not transferred elsewhere. Due to acute kidney injury on presentation, hold Lasix for now and take only as needed in case of worsening edema, please stop and avoid ibuprofen or other NSAIDs which may contribute to kidney dysfunction. For now also hold solifenacin and reduce Belsomra dose to 10 mg (half a tablet) while recovering from kidney injury which may cause mental status changes. Seek medical attention in case of any worsening or new concerning symptoms. Discharge Attestations Time Spent in Discharge Care*: greater than 30 min Quality Metrics Clinical Quality Measures [ No reported AMI, CVA or VTE this stay] Coding Level of Care Code 25516 Total time (in minutes) for Discharge: 45 Diagnoses Cellulitis L03.90 ROSIBEL (acute kidney injury) N17.9 Herpes labialis B00.1 Hallucinations R44.3
[2025-01-14 12:00] VITALS: BP 118/67; PULSE 73; RESP 19; TEMP 36.7; O2SAT 92
== END 2025-01-14 12:02 | disposition home or self-care (01) ==
LOC: ER 10:11 → ER IP 11:44 → MEDSURG 12:47
PROVIDERS: Admitting Provider Internal Medicine; Emergency Provider Family Medicine; PCP Internal Medicine; Visit Provider Internal Medicine
DX: L03.90 Cellulitis, unspecified (principal); N17.9 Acute kidney failure, unspecified; B00.1 Herpesviral vesicular dermatitis; R44.3 Hallucinations, unspecified; I07.9 Rheumatic tricuspid valve disease, unspecified; I48.92 Unspecified atrial flutter; Z95.0 Presence of cardiac pacemaker; E03.9 Hypothyroidism, unspecified; Z82.49 Family history of ischemic heart disease and other diseases of the circulatory system
CPT/HCPCS: 36415; 72040; 80053; 80306; 80307; 81001; 83605; 83735; 85025; 87040; 87637; 93005; 93971; 96365; 96366; 96372; 96375; 99285; G0378; J0573; J1650; J2270; J3373; J3490; J7030; J7050; J8499; J9999

== ENCOUNTER 2025-01-19 14:42 | Emergency (ER) | payer MEDICARE, MEDICAID, SELFPAY ==
--- OUTSIDE RECORDS SUMMARY | 2025-01-11 14:11 | XMS_ITS ---
Author Organization [facility] Address [address] [place] [address] Care Team Providers Care Form Tamper Name Role Phone Moe Woo Primary Care Provider Allergies Allergen (clinical drug ingredient) Drug/Non Drug Allergy documented on EMR Reaction Allergy Type Onset Date Status erythromycin Erythromycin Base Unknown Drug Allergy Active Influenza Virus Vaccine Live Unknown Drug Allergy Active naproxen Naproxen Unknown Drug Allergy Active isotretinoin Isotretinoin Unknown Drug Allergy A ctive nefazodone Nefazodone Unknown Drug Allergy Activ e Penicillin Unknown Drug Allergy Active REASON FOR VISIT [facility] Monthly call Medications Medication SIG (Take, Route, Frequency, Duration) Notes Start Date End Date Status predniSONE 20 MG Tablet 1 tablet with fo od or milk Orally Once a day; Duration: 7 days 12/09/2024 Not-Taking Solifenacin Succinate 5 mg Tablet TAKE ONE TABLET BY MOUTH EVERY DAY; Duration: 30 Not-Taking HYDROcodone-Acetaminophen 10-325 MG Tablet 1 tablet as needed Orally every 6 hrs Not-Taking Ibuprofen 600 MG Tablet 1 tablet with fo od or milk as needed Orally Three times a day Not-Taking Myrbetriq 50 mg Tablet Extended Release 24 Hour TAKE ONE TABLET BY MOUTH ONCE DAILY; Duration: 30 Not-Taking Ondansetron 4 MG Tablet Disintegrating 1 tablet on the tongue and allow to dissolve Orally Once a day Not-Taking Vitamin B Complex - Capsule as directed Orally Not-Takin g Vitamin C 500 MG Capsule as directed Orally Not-Taking tiZANidine HCl 4 MG Capsule 1 capsule at bedtime as needed Orally daily; Duration: 30 days 01/04/2025 Active Carisoprodol 350 MG Tablet 1 tablet as needed Orally Four times a day Not-Taking Solifenacin Succinate 5 MG Tablet 1 tablet Orally Once a day; Duration: 90 days 12/23/2024 Active Buprenorphine HCl-Naloxone HCl 2-0.5 MG Tablet Sublingual 1 Sublingual bid; Duration: 30 days 01/04/2025 05/04/2025 Active ARIPiprazole 5 mg Tablet TAKE ONE TABLET BY MOUTH EVERY DAY; Duration: 28 Active Belsomra 20 MG Tablet 1 tablet at bedtim e as needed Orally Once a day; Duration: 30 days 09/22/2024 02/19/2025 Active Myrbetriq 50 MG Tablet Extended Release 24 Hour 1 tablet Orally Once a day; Duration: 90 days 12/23/2024 Active Levothyroxine Sodium 25 mcg Tablet TAKE ONE TABLET BY MOUTH EVERY MORNING ON a EMPTY stomach; Duration: 30 Active Metoprolol Succinate ER 25 MG Tablet Extended Release 24 Hour 1 tablet Orally Once a day Active Furosemide 20 MG Tablet TAKE 1 TABLET BY MOUTH ONCE DAILY; Duration: 30 Active Citalopram Hydrobromide 40 mg Tablet TAKE ONE TABLET BY MOUTH At Bedtime; Duration: 30 Active Tamsulosin HCl 0.4 mg Capsule TAKE ONE CAPSULE BY MOUTH TWICE DAILY; Duration: 30 Active Social History Tobacco Use: Social History Observation Description Date Details (start date - stop date) Never Smoker NA - NA Social History Tobacco Use: Social Info Question Answer Notes Tobacco Control (Standard) Tobacco use: Nonsmoker Section Notes: CIME Dep/Tob 11/16/24 CIME Dep/Tob 01/05/2025 Encounters Encounter Location Date Provider Diagnosis [facility] 01/11/2025 Moe Woo Primary hype rtension I10 and Chronic pain syndrome G89.4 Assessments Encounter Date Diagnosis (ICD Code) Assessment Notes Treatment Notes Treatment Clinical Notes Section Notes 01/11/2025 Primary hypertension (ICD-10 - I10) 01/11/2025 Chronic pain syndrome (ICD-10 - G89.4) Plan Of Treatment Next Appt Details Provider Name:Moe Woo, 01/21/2025 09:20:00 AM, [address] [place] [address], [phone], Provider Name:Damian Lopez, 03/31/2025 10:20:00 AM, [address] [place], [address], Provider Name:Nydia Aviles, 06/25/2025 11:10:00 AM, [address] , [address], [place], [address], Progress Notes * Benjamin AQUINODOB: 5 (59 yo M)Acc No.[id number]:01/11/2025 Patient: Benjamin BAUER :1965 A ge:59 Y S ex:Male Address:[address] [place] [address] [place] [address] Subjective: * Chief Complaints: * C CM Monthly call * Medical History: Left shoulder pain, unspecified chronicity Bladder irritation Depression Tricuspid valve regurgitation, nonrheumatic H/O aortic valve replacement Pacemaker Hypothyroidism Erectile dysfunction Overactive bladder Lower urinary tract infection * Surgical History: rotator cuff surgery pacemaker Vasectomy penile implant at [facility] * Family History: F ather: , heart. M other: , tick fever. * Social History: T obacco Use: T obacco Control (Standard) T obacco use: N onsmoker C VLADIMIR Dep/Tob 11/16/24 CIME Dep/Tob 01/05/2025. [...] Live - Criticality UnknownErythromycin Base - Criticality Unknown Assessment: * Assessment: 1. P rimary hypertension - I10 (Primary) 2 . C hronic pain syndrome - G89.4? * * Date:
--- OUTSIDE RECORDS SUMMARY | 2025-01-12 04:40 | XMS_ITS ---
Author Organization [facility] Address [address] [place] [address] Care Team Providers Care Steamtable Attendant Railroad Name Role Phone Moe Woo Primary Care [...] 01/12/2025 Encounters Encounter Location Date Provider Diagnosis [facility] [address] [place] [phone] 01/12/2025 Moe Woo Cellulitis of pretibial region L03.119 Assessments Encounter Date Diagnosis (ICD Code) Assessment Notes Treatment Notes Treatment Clinical Notes Section Notes 01/12/2025 Cellulitis of pretibial region (ICD-10 - L03.119) Plan Of Treatment Medication Medication Name Sig Start Date Stop Date Notes Doxycycline Hyclate 100 MG Tablet 1 tablet Orally twice a day; Duration: 10 days 01/12/2025 01/22/2025 Next Appt Details Provider Name:Moe Woo, 01/21/2025 09:20:00 AM, [address] [facility] [facility] [address], [address], Provider Name:Damian Lopez, 03/31/2025 10:20:00 AM, [address] [place], [address], Provider Name:Nydia Aviles, 06/25/2025 11:10:00 AM, [address] [facility], [facility] [address], [address], Medications Administered Medication Instructions Date of Administration [...] * Benjamin AQUINODOB: 5 (59 yo M)Acc No.[id number]:01/12/2025 Progress Notes Patient: Benjamin Antonio Provider: Erin Woo MD :1965 A ge:59 Y S ex:Male Date:01/12/2025 [address] [facility] [id number] Check 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 * Hospitalization/Major Diagno stic [...] (Cellulitis of pretibial region) * Procedure Codes: J 0696 Rocephin/Ceftriaxone 1 Gram (per 250 mg), Units: 4.00 21256 THER/PROPH/DIAG INJ, SC/NK7082A SYST BP LT 130 MM [id number] DIAST BP < 80 MM DS1684I MED LIST DOCD IN [id number] RVW MEDS BY RX/DR IN [id number] AMNT PAIN NOTED PAIN [id number] FXNL STATUS ASSESSED * Preventive Medicine: Fall Risk Assessment: F [...] section.) * Billing Information: * Visit Code: 71945 Office Visit, Est Pt., Level 4. Modifiers: 25 * Procedure Codes: J0696 Rocephin/Ceftriaxone 1 Gram (per 250 mg). Units: 4.00. 76942 THER/PROPH/DIAG INJ, SC/IM. 3074F SYST BP LT 130 MM HG. 3078F DIAST BP < 80 MM HG. 1159F MED LIST DOCD IN RCRD. 1160F RVW MEDS BY RX/DR IN RCRD. 1125F AMNT PAIN NOTED PAIN PRSNT. 1170F FXNL STATUS ASSESSED. Care Plan Details* * Sign off status: Completed true * Provider: Erin Woo MD Date: 0 01/12/2025 Generated for Anthony callahan/Angel/Juliocesaritting on: 01/19/2025 02:47 PM CDT
--- OUTSIDE RECORDS SUMMARY | 2025-01-14 06:04 | XMS_ITS ---
Author Organization [facility] Address [address] [place] [address] Care Team Providers Care Jewelry Racker Name Role Phone Moe Woo Primary Care Provider [phone] REASON FOR VISIT HFU Encounters Encounter Location Date Provider Diagnosis [facility] [address] [address] 01/14/2025 Moe Woo Plan Of Treatment Next Appt Details Provider Name:Moe Woo, 01/21/2025 09:20:00 AM, [address], [address], Provider Name:Damian Lopez, 03/31/2025 10:20:00 AM, [address] [place], [address], Provider Name:Nydia Aviles, 06/25/2025 11:10:00 AM, [address] [facility], [address], [place], [address], History and Physical Notes * HPI (History of Present Illness) Category Sub-Category Detail Notes Category Not es Interim History *Hospital Transition of care (inpatient/overnight stay) Date of admission to hospital:: 01/13/2025 Reason for admission:: Other (See Notes) Cellulitis Was this a readmission?: No Date of discharge from hospital:: 2024 Discharging Facility:: [facility] First Attempt at Contact:: Irma cabello spoke with patient, family, or caregiver Date of First Attempt:: 01/18/2025 Discharge medications review ed and reconciled from hospital:: Medications to be reconciled with Health Care Provider at Follow Up Visit Does this patient meet any r isk criteria for potential readmission within 30-90 days? (_select all that apply): Admission triggered from Emergency Department Date of receipt of hospital admission re port:: 01/14/2025 Date of receipt of hospital discharge subramanian mmary:: 01/18/2025 Progress Notes * Benjamin AQUINODOB: 5 (59 yo M)Acc No.[id number]:01/14/2025 Patient: Benjamin BAUER :1965 A ge:59 Y S ex:Male Address:[address] [place] [address] [address], [place] [address] Subjective: * Chief Complaints: * H FU * HPI: I nterim History: *Hospital Transition of care (inpatient/overnight stay) D ate of admission to hospital: 0 01/13/2025 R joe for admission: O ther (See Notes) Cellulitis W as this a readmission? N o D ate of discharge from hospital: 0 01/14/2025 D ischarging Facility: [facility] irst Attempt at Contact: S destiney spoke with patient, family, or caregiver D ate of First Attempt: 0 01/18/2025 D ischarge medications reviewed and reconciled from hospital: M edications to be reconciled with Health Care Provider at Follow Up Visit D oes this patient meet any risk criteria for potential readmission within 30-90 days? (_select all that apply) A dmission triggered from Emergency Department D ate of receipt of hospital admission report:?01/14/2025 D ate of receipt of hospital discharge summary: 0 01/18/2025 * true * Date: Generated for Anthony callahan/Angel/eTransmitting on: 0 01/19/2025 02:47 PM CDT
[2025-01-19 14:46] VITALS: BP 101/65; PULSE 75; RESP 16; TEMP 36.7; O2SAT 90; BMI 27.8
--- NOTE | 2025-01-19 14:47 | ECG_ITS ---
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 Measurements Intervals [place] Rate: 72 P: 0 TX: 0 QRS: -67 QRSD: 187 T: 113 QT: 491 QTc: 538 Interpretive Statements ELECTRONIC VENTRICULAR PACEMAKER VENTRICULAR PACED RHYTHM ABNORMAL RHYTHM ECG Compared to ECG 01/13/2025 08:40:15 No significant changes Electronically Signed On 01-20-2025 20:54:27 CDT by Girma Valentin M.D. [email or web address]
--- NOTE | 2025-01-19 14:47 | XR_ITS ---
WS: [id number] Exam: XR chest 1V portable [id number] Date/Time of Exam: 01/19/2025 2:48 PM Reason For Exam: dyspnea/cough Comparison 01/03/2022. Lungs are fully expanded and clear. Heart size top limits normal. Permanent cardiac pacer overlies LEFT chest. Status post median sternotomy. Bony structures are intact. No pleural effusion. XR/XR chest 1V portable [id number] IMPRESSION: 1. No acute process.
--- OUTSIDE RECORDS SUMMARY | 2025-01-19 14:47 | XMS_ITS | Encounter Summary ---
Author Organization [facility] Address [address] [place] [address] Care Team Providers Care Sustainable Agriculture Faculty Name Role Phone Gen Suresh MD Primary Care Provider [phone] Encounter Details Date Type Department Care Team (Latest Contact Info) Description 07/31/2016 Ancillary Orders [facility] Pre-Registration [place] CALL TO MAKE APPOINTMENT ONLY [address] [place] [address] Bill Delong MD [address] [place] [address] Spinal stenosis, cervical region Social History Tobacco Use Types Packs/Day Years Used Date Smoking Tobacco: Never Alcohol Use Standard Drinks/Week Comments No 0 (1 standard drink = 0.6 oz pur e alcohol) Sex and Gender Information Value Date Recorded Sex Assigned at Not on file 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
--- OUTSIDE RECORDS SUMMARY | 2025-01-19 14:47 | XMS_ITS | Encounter Summary ---
Author Organization [facility] Address [address] [place] [address] Care Team Providers Care Posting Clerk Name Role Phone Gen Suresh MD Primary Care Provider [phone] Encounter Details Date Type Department Care Team (Latest Contact Info) Description 01/03/2007 Outpatient Historical [facility] Maxillo Surgery[address] [place] [phone] Lars Pierre, PRAFULS NO ADDRESS ON FILE Unspecified Dental Caries (Primary Dx) Social History Tobacco Use Types Packs/Day Years Used Date Smoking Tobacco: Never Assessed Sex and Gender Information Value Date Recorded Sex Assigned at Not on file 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
--- OUTSIDE RECORDS SUMMARY | 2025-01-19 14:47 | XMS_ITS | Patient Health Record ---
Author Organization [facility] Address [address] [place] [address] Care Team Providers Care Medical Center Manager Name Role Phone Moe Woo Primary Care Provider [phone] Aldo Rincon Unavailable [phone] Nydia Olsen Unavailable [phone] Allergies Allergen (clinical drug ingredient) Drug/Non Drug [...] Notes UA Without Micro-[place], [place] - [id number] Reviewed date:06/25/2024 10:28:55 AM Interpretation: Performing Lab: Notes/Report: Glucose 0 Bili 0 Ketones 0 Sp [place] 1.005 Blood 0 pH 6.0 Protein 0 Urobili 0 Nitrites 0 Leukocytes 0 UA Without Micro-[place], [place] - [id number] Reviewed date:04/23/2024 10:30:04 AM Interpretation: Performing Lab: Notes/Report: Glucose - Bili - Ketones - Sp [place] 1.020 Blood - pH 6.0 Protein +- Urobili - Nitrites - Leukocytes - UA Without Micro-[place], [place] - [id number] Reviewed date:03/17/2024 09:48:28 AM Interpretation: Performing Lab: Notes/Report: Glucose - Bili - Ketones - Sp [place] 1.015 Blood - pH 5.5 Protein +- Urobili - Nitrites - Leukocytes - UA Without Micro-[place], [place] - [id number] Reviewed date:12/23/2024 02:35:03 PM Interpretation: Performing Lab: Notes/Report: Glucose 0 Bili 1+ Ketones 0 Sp [place] 1.025 Blood 0 pH 6.0 Protein 0 Urobili 0 Nitrites 0 Leukocytes 0 PSA Diagnostic--[id number] Reviewed date:04/27/2024 11:56:52 AM Interpretation: Performing Lab: [...] Digital Breast Brandt osynthesis, [place] - [id number] Reviewed date:10/07/2024 03:58:30 PM Interpretation: Performing Lab: Notes/Report: Reason For Referral Reason Referring to Dr Kizzy Lockwood at [facility] for IPP. Thank you! Diagnosis 1 Erectile disorder (N 52.9) Referral Organization [facility] Referring Provider First Name Aldo Referring Provider Last Name Mckenzie Referring Provider Speciality Urology Referral Priority Routine Reason chronic pain Diagnosis 1 Chronic pain syndrom e (G89.4) Referring Provider First Name Tyler alicia Referring Provider Last Name Chilo Referring Provider Speciality Internal M edicine Referred Organization [facility] Referred Provider Damian Lopez Referred Address [address] [place] [phone], General Notes Ankita George 01/07 09:25:07 AM CDT > atc Ferny hobbs Katrina 01/07/2025 09:34:35 AM CDT > Patient called and got scheduled for 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 Sent ppwk. , Sent thank you letter Referral Priority Routine Reason chronic pain Diagnosis 1 Chronic pain syndrom e (G89.4) Referral Organization [facility] Referring Provider First Name [...] with food Orally Once a day Active Citalopram Hydrobromide [...] as needed Orally every 6 hrs Not-Taking Levothyroxine Sodium 25 mcg Tablet TAKE ONE TABLET BY MOUTH EVERY MORNING ON a EMPTY stomach; Duration: 30 Active Doxycycline Hyclate 100 MG Tablet 1 tablet Orally twice a day; Duration: 10 days 01/12/2025 01/22/2025 Active Furosemide 20 MG Tablet TAKE 1 TABLET BY MOUTH ONCE DAILY; Duration: 30 Active Social History Tobacco [...] Section Notes: CIME Dep/Tob 11/16/24 CIME Dep/Tob 11/16/24 CIME Dep/Tob 11/16/24 CIME Dep/Tob 11/16/24 CIME Dep/Tob 11/16/24 CIME Dep/Tob 11/16/24 CIME Dep/Tob 01/05/2025 CIME Dep/Tob 11/16/24 CIME Dep/Tob 01/05/2025 CIME Dep/Tob 11/16/24 CIME Dep/Tob 01/05/2025 CIME Dep/Tob 11/16/24 Problems Problem Type SNOMED Code ICD Code Onset Dates Problem Status W/U Status Risk Notes Problem Primary insomnia (7235648) Primary insomnia (F51.01) Active confirmed Problem Chronic pain syndrome (670172196) Chronic pain syndrome (G89.4) Active confirmed Problem Hematoma (80814617) Hematoma (T14.8XXA) Active confirmed Problem Urinary frequency (705757455) Urinary frequency (R35.0) Active confirmed Problem Edema (315181027) Lower extremity edema (R60.0) Active confirmed Problem Urgent desire to urinate (60827649) Urinary urgency (R39.15) Active confirmed Problem Secondary erectile dysfunction (disorder) (953897310) ED (erectile dysfunction) of organic origin (N52.9) Active confirmed Problem Breast lump (39880628) Breast mass in male (N63.0) Active confirmed Problem 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.0) Active confirmed Problem Cardiac pacemaker in situ (015343670) Pacemaker (Z95.0) Active confirmed Problem Benign prostatic hypertrophy with outflow obstruction (661170360) BPH loc w urin obs/LUTS (N40.1) Active confirmed Problem Bursitis of shoulder (663256196) Subscapular bursitis (M75.50) Active confirmed Problem Primary hypertension (54387505) Primary hypertension (I10) Active confirmed Problem Erectile dysfunction (disorder) (649195344) Erectile disorder (N52.9) Active confirmed Vital Signs [...] N/A Encounters Encounter Location Date Provider Diagnosis [facility] [address] [place] [address] Dr Brownlee [address] [place] [address], [place] [address] 03/17/2024 Aldo Rincon Erectile disorder N52.9 ; BPH loc w urin obs/LUTS N40.1 and Prostate cancer screening Z12.5 [facility] [address] [place] [phone] 04/06/2024 Moe Woo Cellulitis of pretibial region L03.119 [facility] [address] [place] [phone] 04/20/2024 Moe Woo Screening for prostate cancer Z12.5 [facility] [address] [place] [address] [place] [address] 04/23/2024 Aldo Rincon BPH loc w urin obs/LUTS N40.1 [facility] [address] [place] [address] 05/26/2024 Moe Woo Acute contact dermatitis L25.9 and Primary hypertension I10 [facility] [address] [place] [address] Dr Brownlee [address] [place] [address], [place] [address] 06/25/2024 Nydia Olsen Urinary frequency R35.0 ; BPH loc w urin obs/LUTS N40.1 and Erectile dysfunction N52.9 [facility] [address] [place] [address], [place] [address] 09/10/2024 Moe Woo Hematoma T14.8XXA and Breast mass in male N63.0 [facility] [place] 11/04/2024 Moe Woo Primary hypertension I10 and BPH loc w urin obs/LUTS N40.1 [facility] [address] [place] [address] 11/16/2024 Moe Woo Lower extremity edema R60.0 ; Primary hypertension I10 and Depression screen Z13.31 [facility] [address] [place] [address] 12/09/2024 Moe Woo Cellulitis of left lower extremity L03.116 [facility] [address] [place] [address] 12/16/2024 Moe Woo Lower extremity edema R60.0 [facility] [address] [place] [address] [place] [address] 12/23/2024 Nydia Olsen BPH loc w urin obs/LUTS N40.1 ; Erectile disorder N52.9 ; Urinary frequency R35.0 and Urinary urgency R39.15 [facility] [address] [place] [address] 01/04/2025 Moe Woo Chronic pain syndrome G89.4 ; Primary hypertension I10 and ED (erectile dysfunction) of organic origin N52.9 [facility] [address] [place] [address] 01/05/2025 Moe Woo Encounter for Medicare annual wellness exam Z00.00 [facility] [address] [place] [address] 01/12/2025 Moe Woo Cellulitis of pretibial region L03.119 [facility] [place] 01/11/2025 Moe Woo Primary hypertension I10 and Chronic pain syndrome G89.4 [facility] [address] [place] [address] Dr Brownlee [address] [place] [address], [place] [address] 04/20/2024 Aldo Rincon Screening for prostate cancer Z12.5 [facility] [address] [place] [address] 05/04/2024 Moe Woo Primary insomnia F51.01 [facility] [address] [place] [address] 09/14/2024 Moe Woo Breast mass in male N63.0 [facility] [address] [address] 09/22/2024 Moe Woo Primary insomnia F51.01 [facility] [place] 11/03/2024 Moe Woo Primary hypertension I10 and BPH loc w urin obs/LUTS N40.1 [facility] [place] 12/08/2024 Moe Woo Primary hypertension I10 and Primary insomnia F51.01 [facility] [address] [place] [address], [place] [address] 12/23/2024 Nydia Olsen Encounter for screening for malignant neoplasm of prostate Z12.5 [facility] [address] [place] [address] 01/04/2025 Moe Woo Chronic pain syndrome G89.4 [facility] [address] [place] [address] 01/14/2025 Moe Woo Assessments Encounter Date Diagnosis (ICD Code) Assessment [...] Chronic pain syndrome (ICD-10 - G89.4) 01/05/2025 Encounter for Medicare annual wellness exam [...] problem list with appropriate and specific ICD-10's. 01/11/2025 Primary hypertension (ICD-10 - I10) 01/11/2025 Chronic pain syndrome (ICD-10 - G89.4) 01/12/2025 Cellulitis of pretibial region (ICD-10 - L03.119) 06/25/2024 Urinary frequency (ICD-10 - R35.0) PLAN - PATIENT ADVISED MYRBETRIQ WAS HELPING SOME, HE WOULD LIKE TO CONTINUE THIS, HE HAS ENOUGH REFILLS, CURRENTLY. 06/25/2024 BPH loc w urin obs/LUTS (ICD-10 - N40.1) PLAN - CONTINUE MONITORING SYMPTOMS, PVR WAS NOT COMPLETED TODAY, WILL BE COMPLETED NEXT VISIT 06/25/2024 Erectile dysfunction (ICD-10 - N52.9) PLAN - ALETHEA APPT. - WILL REFER TO [facility] AFTER FAILING ALETHEA, PATIENT ALREADY HAD ONE 01/04/2025 ED (erectile dysfunction) of organic origin (ICD-10 - N52.9) 12/23/2024 Urinary frequency (ICD-10 - R35.0) 11/16/2024 Depression screen (ICD-10 - Z13.31) 03/17/2024 Prostate cancer screening (ICD-10 - Z12.5) t 05/26/2024 Primary hypertension (ICD-10 - I10) 12/23/2024 Urinary urgency (ICD-10 - R39.15) 03/17/2024 Other Continue tamsulosin Cysto next available. trial tadalafil 20mg. If he fails he may need referall for ALETHEA. Current psa. t 04/20/2024 Other patient here fo r PSA lab draw form Dr Rincon Venipuncture performed by Shweta Brandt. Left arm/hand. One attempt. Pt tolerated well, bleeding controlled with light dressing. Lab sent to [facility] via multiple drill operator. 04/23/2024 Other ALETHEA appointment. If ALETHEA fails [...] Future Test Test Name Order Date PSA Diagnostic--[id number] 04/29/2025 Next Appt Details Provider Name:Moe Abreu Chilo, 01/21/2025 09:20:00 AM, [address] [facility] [address], [address], Provider Name:Damian Lopez, 03/31/2025 10:20:00 AM, [address] [place], [address], Provider Name:Nydia Aviles, 06/25/2025 11:10:00 AM, [address] [facility] [address], [place], [address], Insurance Providers Payer Name Payer Address Payer Phone Subscriber Number Group Number Insured Name Patient Relationship to Insured Coverage Start Date Coverage End Date [employer] Medicare Replacement [address] [address] [place] [address] [id number] Benjamin Walker Self - patient is the insured [place] Medicaid [address] [place] [address] [id number] Benjamin Walker Self - patient is the insured [place] Medicare [address] [place] [address] [id number] Benjamin Walker Self - patient is the [...] cuff surgery pacemaker Vasectomy penile implant at [facility]
--- OUTSIDE RECORDS SUMMARY | 2025-01-19 14:47 | XMS_ITS | Encounter Summary ---
Author Organization [facility] Address [address] [place] [address] Care Team Providers Care Exceptional Children Teacher Name Role Phone Gen Suresh MD Primary Care Provider Encounter Details Date Type Department Care Team (Late st Contact Info) Description 10/06/2013 Ancillary Orders [facility] Oral and Maxillo Surgery[address] [place] [phone] Manny Austin Jr., DMD NO ADDRESS ON FILE Unspecified dental caries (Primary Dx) Social History Tobacco Use Types Packs/Day Years Used Date Smoking Tobacco: Never Alcohol Use Standard Drinks/Week Comments No 0 (1 standard drink = 0.6 oz pur e alcohol) Sex and Gender Information Value Date Recorded Sex Assigned at Not on file Legal Sex Male 4:09 AM ECD Gender Identity Not on file Sexual Orientation [...] Primary documented in this encounter Care Teams Exceptional Children Teacher Relationship Specialty Start Date End Date Gen Suresh MD [address] [place] [address] [place] [phone] PCP - General Family Practice 08/02/16 documented as of this encounter
--- OUTSIDE RECORDS SUMMARY | 2025-01-19 14:47 | XMS_ITS | Encounter Summary ---
Author Organization [facility] Address [address] [place] [address] Care Team Providers Care Vp Strategy Name Role Phone Gen Suresh MD Primary Care Provider [phone] Reason for Referral * Outpatient Services (Routine) - Closed Specialty Diagnoses / Procedures Referred By Contfrances lozano Referred To Contact Diagnoses Spinal stenosis of cervical region Procedures MRI CERVICAL WO CONTRAST Bill Delong MD Phone: tel: fax: [facility] Pre-Registration [facility] CALL TO MAKE APPOINTMENT ONLY [address] [place] [address] Phone: tel: fax: Referral ID Status Reason Start Date Expiration Date V isits Requested Visits Authorized [id number] Closed F [facility] TO SCHEDULE (SGF) 07/24/2016 08/23/2016 1 1 Encounter Details Date Type Department Care Team (Latest Contact Info) Description 07/25/[address] 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 [id number] Narrative Procedure Note Jose tSephenson MD - 08/02/2016 IMPRESSION IMPRESSION: Please see [...] to specific findings above for further details. [id number] us Bill Delong MD MR ORDERABLES Final Re sult documented in this encounter Visit Diagnoses Diagnosis Spinal stenosis of cervical region Spinal stenosis in cervical region Spinal stenosis of cervical region Spinal stenosis in cervical region documented in this encounter Care Teams Vp Strategy Relationship Specialty Start Date End Date Gen Suresh MD [address] [place] [address] [place] [phone] PCP - General Family Practice 08/02/16 documented as of this encounter
--- OUTSIDE RECORDS SUMMARY | 2025-01-19 14:47 | XMS_ITS | Clinical Summary ---
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 ESHAatterson 07-30-16 Ra Lead-01/22/2002 Implanted: 002 (Quantity not on file) Lead [employer] 5076-52 / [id number] / Description:This lead is par t of a MRI condtional pacemaker system.. Stephane 07-30-16. Mri Condtitional Pacemaker-07/18/19 17 Implanted: 017 by Guicho Villar MD (Quantity not on file) Pacemaker [employer] ADVISA DR SHIRLEY [id number] / [id number] / Description:This is a MRI co ndtional pacemaker generator, Medtronic Rep must be present for all MRI scans. Stephane 07-30-16. [facility] Heart Care: [facility] , fax: [phone] Dr Borja is patient's priming mixture carrier. Porcine Valve Replacement Valve Description:By Patient sharon lozano and confirmed by Brittny at Dr Guicho Villar ([facility] Heart Care clinic) after review of medical records, this was placed in 2001. It is a biological tissue implant. ESHAatterson 07-30-16. Aortic Valve Repair/Replacemen t-08/22/1982 Implanted: 983 (Quantity not on file) Valve Description:Patient had aort ic repair procedure following crush injury to chest here at [facility]. No records remain regarding surgery or possible implants used and patient does not have any information regarding implants from this procedure. Per Dr Henri Mahmood, Chest Xray will be obtained prior to MRI scans to ensure no metallic implants are present, other than MRI conditonal pacemaker. ESHAatterson 07-30-16 Insurance MEDICAID [facility] PPO MCR Care Teams Malt Liquors Sales Supervisor Relationship Specialty Start Date End Date Gen Suresh MD [address] [place] [address] [place] [address] PCP - General Family Practice 08/02/16
--- OUTSIDE RECORDS SUMMARY | 2025-01-19 14:47 | XMS_ITS | Clinical Summary ---
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 ESHAatterson 07-30-16. Rv Lead-01/22/2002 Implanted: 002 (Quantity not on file) Lead [employer] 5076-58 / [id number] / Description:This lead is par t of a Medtronic condtional pacemaker system. ESHAatterson 07-30-16 Mri Condtitional Pacemaker-07/18/19 17 Implanted: 017 by Guicho Villar MD (Quantity not on file) Pacemaker [employer] ADVISA DR SHIRLEY [id number] / [id number] / Description:This is a MRI co ndtional pacemaker generator, Medtronic Rep must be present for all MRI scans. ESHAatterson 07-30-16.[facility] Heart Care: [facility] , fax: [phone] Dr Borja is patient's yarn texture machine operator. Porcine Valve Replacement Valve Description:By Patient repor t and confirmed by Brittny at Dr Guicho Villar ([facility] Heart Care clinic) after review of medical records, this was placed in 2001. It is a biological tissue implant. JPatterson 07-30-16. Aortic Valve Repair/Replacemen t-08/22/1982 Implanted: 983 (Quantity not on file) Valve Description:Patient had aort ic repair procedure following crush injury to chest here at [facility]. No records remain regarding surgery or possible implants used and patient does not have any information regarding implants from this procedure. Per Dr Henri Mahmood, Chest Xray will be obtained prior to MRI scans to ensure no metallic implants are present, other than MRI conditonal pacemaker. [facility] 07-30-16 Care Teams Tie Binder Relationship Specialty Start Date End Date Gen Suresh MD [address] [place] [address] [place] [address] PCP - General Family Practice 08/02/16
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
[2025-01-19 15:09] VITALS: BP 121/72; PULSE 71; O2SAT 95
[2025-01-19 15:26] LABS: Hematocrit 33.0 % (37-53); Hemoglobin 10.80 g/dL (11.27-16.99); Mean Corpuscular HGB Conc 32.7 g/dL (30-55); Mean Corpuscular Hemoglobin 31.9 pg (27-33); Mean Corpuscular Volume 97.3 fl (82-101); Nucleated Red Blood Cells % 0 %; Platelet Count 108 10^3/cmm (157-399); Red Blood Count 3.39 10^6/uL (3.85-5.65); White Blood Count 4.40 10^3/uL (3.29-11.43)
[2025-01-19 15:39] VITALS: BP 104/72; PULSE 72; O2SAT 93
[2025-01-19 15:48] LABS: Alanine Aminotransferase 20 U/L (0-41); Albumin Level 4.2 g/dL (3.5-5.2); Alkaline Phosphatase 225 U/L (40-130); Anion Gap 13.1 (5-19); Aspartate Amino Transferase 60 U/L (0-40); Blood Urea Nitrogen 17 mg/dL (8-23); Calcium 9.5 mg/dL (8.5-10.5); Carbon Dioxide 25 mmol/L (22-29); Chloride 103 mmol/L (98-107); Creatinine Clr Calc Pharmacy 75.4326; Globulin 2.8 g/dL (1.3-4.6); Glucose 92 mg/dL (65-115); Osmolality Calculated 285 mOsm/kg (285-295); Potassium 4.1 mmol/L (3.5-5.1); Sodium 137 mmol/L (136-145); Total Protein 7.0 g/dL (6.6-8.7)
[2025-01-19 15:49] LABS: Lactic Sepsis W/Reflex 0.9 mmol/L (0.5-2.2)
[2025-01-19 16:01] VITALS: BP 114/76; PULSE 87; O2SAT 93
[2025-01-19 16:09] LABS: Glucose Urine UA Negative (Normal); Nitrate Urine Negative (Negative); Specific Gravity, Urine 1.025 (1.005-1.030)
[2025-01-19 16:14] LABS: Add Urine Microscopic? YES
[2025-01-19] MEDS: morphine 4 mg/mL SDV 1 mL IVP (16:21)
[2025-01-19] MEDS: orphenadrine 30 mg/mL Inj 2 mL 60 MG IM (16:23)
[2025-01-19 16:32] VITALS: BP 118/79; PULSE 75; O2SAT 96
[2025-01-19 17:04] VITALS: BP 115/71; PULSE 72; O2SAT 96
== END 2025-01-19 17:05 | disposition home or self-care (01) ==
PROVIDERS: Emergency Provider Family Medicine; PCP Internal Medicine
DX: M54.2 Cervicalgia (principal); R60.0 Localized edema; L03.116 Cellulitis of left lower limb; F20.9 Schizophrenia, unspecified; Z95.2 Presence of prosthetic heart valve; Z95.0 Presence of cardiac pacemaker
CPT/HCPCS: 36415; 71045; 80053; 81001; 83605; 85025; 87040; 93005; 96372; 96374; 99285; J2270; J2360; J7030

== ENCOUNTER 2025-01-27 03:40 | Emergency (ER) | payer MEDICARE, MEDICAID, SELFPAY ==
--- OUTSIDE RECORDS SUMMARY | 2025-01-11 14:11 | XMS_ITS ---
Author Organization [facility] Address [address] [place] [address] Care Team Providers Care Stable Hand Name Role Phone Moe Woo Primary Care Provider [phone] Allergies Allergen (clinical drug ingredient) Drug/Non Drug Allergy documented on EMR Reaction Allergy Type Onset Date Status erythromycin Erythromycin Base Unknown Drug Allergy Active Influenza Virus Vaccine Live Unknown Drug Allergy Active naproxen Naproxen Unknown Drug Allergy Active isotretinoin Isotretinoin Unknown Drug Allergy A ctive nefazodone Nefazodone Unknown Drug Allergy Activ e Penicillin Unknown Drug Allergy Active REASON FOR VISIT [facility] Monthly call Medications Medication SIG (Take, [...] 01/05/2025 Encounters Encounter Location Date Provider Diagnosis [facility] 01/11/2025 Moe Woo Primary hype rtension I10 and Chronic pain syndrome G89.4 Assessments Encounter Date Diagnosis (ICD Code) Assessment Notes Treatment Notes Treatment Clinical Notes Section Notes 01/11/2025 Primary hypertension (ICD-10 - I10) 01/11/2025 Chronic pain syndrome (ICD-10 - G89.4) Plan Of Treatment Next Appt Details Provider Name:Damian Lopez, 03/31/2025 10:20:00 AM, [address] [place], [address], Provider Name:Nydia Aviles, 06/25/2025 11:10:00 AM, [address] [facility], [address] [address], [place], [address], Progress Notes * Tarun AQUINO: 5 (59 yo M)Acc No.[id number]:01/11/2025 Patient: Benjamin BAUER :1965 A ge:59 Y S ex:Male Address:[address] [place] [address] Subjective: * Chief Complaints: * C CM Monthly call * Medical History: Left shoulder pain, unspecified chronicity Bladder irritation Depression Tricuspid valve regurgitation, nonrheumatic H/O aortic valve replacement Pacemaker Hypothyroidism Erectile dysfunction Overactive bladder Lower urinary tract infection * Surgical History: rotator cuff surgery pacemaker Vasectomy penile implant at [facility] * Family History: F ather: , heart. [...]
--- OUTSIDE RECORDS SUMMARY | 2025-01-21 04:20 | XMS_ITS ---
Author Organization [facility] Address [address] [place] [address] Care Team Providers Care Hitting Coach Name Role Phone Moe Woo Primary Care [...] Unknown Drug Allergy Active REASON FOR VISIT OZH HFU, HFU Medications Medication SIG (Take, Route, Frequency, Duration) Notes Start Date End Date Status HYDROcodone-Acetaminophen 10-325 MG Tablet 1 tablet as needed Orally every 6 hrs Not-Taking Ibuprofen 600 MG Tablet 1 tablet with fo od or milk as needed Orally Three times a day Not-Taking Myrbetriq 50 mg Tablet Extended Release 24 Hour TAKE ONE TABLET BY MOUTH ONCE DAILY; Duration: 30 Not-Taking predniSONE 20 MG Tablet 1 tablet with fo od or milk Orally Once a day; Duration: 7 days 12/09/2024 Not-Taking Solifenacin Succinate 5 mg Tablet TAKE ONE TABLET BY MOUTH EVERY DAY; Duration: 30 Not-Taking Levothyroxine Sodium 25 mcg Tablet TAKE [...] 500 MG Capsule as directed Orally Not-Taking Buprenorphine HCl-Naloxone HCl 2-0.5 MG Tablet Sublingual 1 Sublingual bid; Duration: 30 days 01/04/2025 05/04/2025 Active tiZANidine HCl 4 MG Capsule 1 capsule at bedtime as needed Orally daily; Duration: 30 days 01/04/2025 Active Citalopram Hydrobromide 40 mg Tablet TAKE ONE TABLET BY MOUTH At Bedtime; Duration: 30 Active Doxycycline Hyclate 100 MG Tablet 1 tablet Orally twice a day; Duration: 10 days 01/12/2025 01/22/2025 Active Furosemide 20 MG Tablet 1 tablet Orally daily; Duration: 30 days As needed Active Tamsulosin HCl 0.4 mg Capsule TAKE ONE CAPSULE BY MOUTH TWICE DAILY; Duration: 30 Active ARIPiprazole 5 mg Tablet TAKE ONE TABLET BY MOUTH EVERY DAY; Duration: 28 Active Belsomra 20 MG Tablet 1/2 tablet at bedt vladimir as needed Orally Once a day; Duration: 30 days 09/22/2024 02/19/2025 Active Myrbetriq 50 MG Tablet Extended Release 24 Hour 1 tablet Orally Once a day; Duration: 90 days 12/23/2024 Active Solifenacin Succinate 5 MG Tablet 1 tablet Orally Once a day; Duration: 90 days 12/23/2024 Active Magnesium Oxide 400 MG Tablet 1 tablet with food Orally Once a day 01/21/2025 Active Nystatin 518278 UNIT/GM Cream 1 application Externally Twice a day to both feet 01/21/2025 Active Linezolid 600 MG Tablet 1 tablet Orally twice a day 01/21/2025 Active MgO 400 (240 Mg) MG Tablet 1 tablet with food Orally Once a day Active Metoprolol Succinate ER 25 MG Tablet Extended Release 24 Hour 1 tablet Orally Once a day Active Social History Tobacco Use: Social History Observation Description Date Details (start date - stop date) Never Smoker NA - NA Social History Tobacco Use: Social Info Question Answer Notes Tobacco Control (Standard) Tobacco use: Nonsmoker Section Notes: CIME Dep/Tob 11/16/24 CIME Dep/Tob 01/05/2025 Problems Problem Type SNOMED Code ICD Code Onset Dates Problem Status W/U Status Risk Notes Problem Cellulitis of lower limb (017776975) Cellulitis of left lower extremity (L03.116) Active confirmed Vital Signs Temperature 98.2 degrees Fahrenheit 01/22/20 25 Blood pressure systolic 111 mm Hg 01/22/20 25 Blood pressure diastolic 74 mm Hg 025 Heart Rate 75 /min 01/21/2025 Height 71 in 01/21/2025 Weight 209 lbs 01/21/2025 BMI 29.15 kg/m2 01/21/2025 Height-cm 180.34 cm 01/21/2025 Weight-kg 94.8 kg 01/21/2025 Encounters Encounter Location Date Provider Diagnosis [facility] [address] [address] 01/21/2025 Moe Woo Chronic pain syndrome G89.4 ; Lower extremity edema R60.0 and Cellulitis of left lower extremity L03.116 Assessments Encounter Date Diagnosis (ICD Code) Assessment Notes Treatment Notes Treatment Clinical Notes Section Notes 01/21/2025 Chronic pain syndrome (ICD-10 - G89.4) All patient's questions are encouraged and addressed to their apparent satisfaction. They are agreeable with the proposed plan of care and deny further needs or concerns. Patient is advised to take medications as prescribed. Patient agrees to contact the clinic with any new, worsening or increase of symptons. I am happy to see patient prior to next office visit as needed for acute concerns. 01/21/2025 Lower extremity edema (ICD-10 - R60.0) 01/21/2025 Cellulitis of left lower extremity (ICD-10 - L03.116) Plan Of Treatment Treatment Notes Assessment Notes Chronic pain syndrome All patient's questions are encouraged and addressed to their apparent satisfaction. They are agreeable with the proposed plan of care and deny further needs or concerns. Patient is advised to take medications as prescribed. Patient agrees to contact the clinic with any new, worsening or increase of symptons. I am happy to see patient prior to next office visit as needed for acute concerns. Next Appt Details Provider Name:Damian Lopez, 03/31/2025 10:20:00 AM, [address] [facility] [place], [address], Provider Name:Nydia Aviles, 06/25/2025 11:10:00 AM, [address], [place], [address], Medications Administered Medication Instructions Date of Administration Dosage Notes dexAMETHasone 01/21/2025 10 mg Ketorolac Tromethamine 01/21/2025 60 mg History and Physical Notes * HPI (History of Present Illness) Category Sub-Category Detail Notes Category Not es Interim History *Hospital Transition of care (inpatient/overnight stay) Date of admission to hospital:: 01/13/2025 Reason for admission:: Other (See Notes) Cellulitis Was this a readmission?: No Date of discharge from hospital:: 2024 Discharging Facility:: [facility] First Attempt at Contact:: Irma cabello [...] receipt of hospital discharge subramanian mmary:: 01/18/2025 Patient Complaints Lower extremity edema The ons et of the lower extremity edema: began days ago The lower extremity edema : is constant The lower extremity edema is: located at the left ankle The duration of the lower extremity alina a: lasted for days The severity of the lower extremity alina a: is severe Associated factors include: pain/tendern ess Examination Category Sub-Category Detail Notes Category Not es Examination GENERAL APPEARANCE: Awake/alert. No appar ent distress HEART: Regular rate and rhy thm without rubs, murmurs, or gallops. PMI nondisplaced BACK: Normal alignment wit h normal active ROM. 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 N o D ate of discharge from hospital: 0 01/14/2025 D ischarging Facility: [facility] irst Attempt at Contact: Irma cabello spoke with patient, family, or caregiver D [...] receipt of hospital discharge summary: 0 01/18/2025 P atient Complaints: Patient here for follow up- pt fell yesterday (01/20/25) hurting his L knee and neck- Pt went to [facility] 01/14/25 because he got really dizzy and wasn't making a lot of sense so a friend called an ambulance- L calf and ankle are swollen and red and tender to the touch. Lower extremity edema T he onset of the lower extremity edema b josh days ago T he lower extremity edema i s constant T he lower extremity edema is l ocated at the left ankle T he duration of the lower extremity edema?lasted for days T he severity of the lower extremity edema?is severe A ssociated factors include p ain/tenderness * ROS: G eneral/Constitutional: Patient denies f atigue , fever , night sweats. ? H ematology: Patient denies e asy bruising , bleeding problems , recent transfusion. R espiratory: Patient denies c ough , shortness of breath , wheezing.? C ardiovascular: Patient denies c hest pain , irregular heartbeat , swelling in hands/feet. G astrointestinal: Patient denies a bdominal pain, bloating , constipation , diarrhea , heartburn , blood in stool , nausea , vomiting. G enitourinary: Patient denies p ainful urination , blood in the urine , difficulty urinating. E NT: Patient denies e ar pain , nosebleed, runny nose, s ore throat. M usculoskeletal: Patient denies a rthritis\arthralgia ,joint stiffness , muscle aches. A dmits B ack Pain. A dmits T rauma to ankle(s). S kin: Patient denies s kin lesion(s) , rash , acne. ? N eurologic: Patient denies d izziness , fainting , headache , memory loss , seizures. P sychiatric: Patient denies a nxiety , depressed mood , difficulty sleeping , suicidal thoughts. f ollow up- L calf and ankle swelling- go over medications- neck pain. * Medical History: Left shoulder pain, unspecified [...] 11/16/24 CIME Dep/Tob 01/05/2025. * Medications: T akingMagnesium Oxide 400 MG Tablet 1 tablet with food Orally Once a day Nystatin 489498 UNIT/GM Cream 1 application Externally Twice a day to both feetLinezolid 600 MG Tablet 1 tablet Orally twice a day MgO 400 (240 Mg) MG Tablet 1 tablet with food Orally Once a day Metoprolol Succinate ER 25 MG Tablet Extended Release 24 Hour 1 tablet Orally Once a day Tamsulosin HCl 0.4 mg Capsule TAKE ONE CAPSULE BY MOUTH TWICE DAILY ARIPiprazole 5 mg Tablet TAKE ONE TABLET BY MOUTH EVERY DAY Belsomra 20 MG Tablet 1/2 tablet at bedtime as needed Orally Once [...] TAKE ONE TABLET BY MOUTH At Bedtime Doxycycline Hyclate 100 MG Tablet 1 tablet Orally twice a day , stop date 01/22/2025Furosemide 20 MG Tablet 1 tablet Orally daily As neededLevothyroxine Sodium 25 mcg Tablet TAKE ONE TABLET BY MOUTH EVERY MORNING ON a EMPTY stomach Taking Magnesium Oxide 400 MG Tablet 1 tablet with food Orally Once a day Taking Nystatin 507756 UNIT/GM Cream 1 application Externally Twice a day to both feetTaking Linezolid 600 MG Tablet 1 tablet Orally twice a day Taking MgO 400 (240 Mg) MG Tablet 1 tablet with food Orally Once a day Taking Metoprolol Succinate ER 25 MG Tablet Extended Release 24 Hour 1 tablet Orally Once a day Taking Tamsulosin HCl 0.4 mg Capsule TAKE ONE CAPSULE BY MOUTH TWICE DAILY Taking ARIPiprazole 5 mg Tablet TAKE ONE TABLET BY MOUTH EVERY DAY Taking Belsomra 20 MG Tablet 1/2 tablet at bedtime as needed Orally Once [...] ONE TABLET BY MOUTH At Bedtime Taking Doxycycline Hyclate 100 MG Tablet 1 tablet Orally twice a day , stop date 01/22/2025Taking Furosemide 20 MG Tablet 1 tablet Orally daily As neededTaking Levothyroxine Sodium 25 mcg Tablet TAKE ONE TABLET BY MOUTH EVERY MORNING ON a EMPTY stomach Not-TakingCarisoprodol 350 MG Tablet 1 tablet as [...] List reviewed and reconciled with the patientNot-Taking Carisoprodol 350 MG Tablet 1 tablet as [...] Objective: * Vitals: H t: 71 in, Wt:209lbs, Wt-k.8 kg, BMI:29.15Index, Temp:98.2F, BP:111/74mm Hg, HR:75/min, Pain scale: 9 1-10, Ht-cm: 180.34 cm. * Examination: E xamination: GENERAL APPEARANCE: A wake/alert. No apparent distress.? HEART: R egular rate and rhythm without rubs, murmurs, or gallops. PMI nondisplaced. LUNGS: C lear to auscultation without rales, rhonchi, wheezing, tachypnea or air hunger. BACK: N ormal alignment with normal active ROM. No vertebral point tenderness. Assessment: * Assessment: 1. C hronic pain syndrome - G89.4 (Primary) 2 . L ower extremity edema - R60.0 3 . C ellulitis of left lower extremity - L03.116 Plan: * Treatment: * Therapeutic Injections: Dexamethasone Sodium Phosphate : 10 mg (Route: Intramuscular) given by Caitlin Regina on left hip (Chronic pain syndrome) KetorolacTrtomethamine/Toradol : 60 mg (Route: Intramuscular) given by Caitlin Regina on right hip (Chronic pain syndrome) * Procedure Codes: J 1885 KetorolacTrtomethamine/Toradol, Units: 4.00 J1100 Dexamethasone Sodium Phosphate, Units: 10.00 17093 THER/PROPH/DIAG INJ, SC/IM, Units: 2.00 3078F DIAST BP < 80 MM NW2224M SYST BP LT 130 MM [id number] MED LIST DOCD IN [id number] RVW MEDS BY RX/DR IN [id number] FXNL STATUS ASSESSED * Preventive Medicine: Fall [...] section.) * Billing Information: * Visit Code: 05509 Office Visit, Est Pt., Level 3. Modifiers: 25 * Procedure Codes: J1885 KetorolacTrtomethamine/Toradol. Units: 4.00. J1100 Dexamethasone Sodium Phosphate. Units: 10.00. 09016 THER/PROPH/DIAG INJ, SC/IM. Units: 2.00. 3078F DIAST BP < 80 MM HG. 3074F SYST BP LT 130 MM HG. 1159F MED LIST DOCD IN RD. 1160F RVW MEDS BY RX/DR IN [facility]. 1170F FXNL STATUS ASSESSED. * Electronic signature of Tera Woo MD on 01/27/2025 at 03:49 AM CDT Sign off status: Pending * Provider: Erin Woo MD Date: 0 01/21/2025 Generated for Anthony callahan/Angel/Brian on: 1 03:49 AM CDT
[2025-01-27 03:42] VITALS: BP 90/61; PULSE 76; RESP 18; O2SAT 83; BMI 30.7
--- OUTSIDE RECORDS SUMMARY | 2025-01-27 03:48 | XMS_ITS | Encounter Summary ---
Author Organization [facility] Address [address] [place] [address] Care Team Providers Care Occupational Health Nurse Name Role Phone Gen Suresh MD Primary Care Provider [phone] Encounter Details Date Type Department Care Team (Latest Contact Info) Description 07/31/2016 Ancillary Orders [facility] Pre-Registration [place] CALL TO MAKE APPOINTMENT ONLY [address] [place] [address] Bill Delong MD [address] [place] [address] Spinal stenosis, cervical region Social History Tobacco Use Types Packs/Day Years Used Date Smoking Tobacco: Never Alcohol Use Standard Drinks/Week Comments No 0 (1 standard drink = 0.6 oz pur e alcohol) Sex and Gender Information Value Date Recorded Sex Assigned at Not on file 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
--- OUTSIDE RECORDS SUMMARY | 2025-01-27 03:48 | XMS_ITS | Encounter Summary ---
Author Organization [facility] Address [address] [place] [address] Care Team Providers Care Hoop Rolls Operator Name Role Phone Gen Suresh MD Primary Care Provider [phone] Reason for Referral * Outpatient Services (Routine) - Closed Specialty Diagnoses / Procedures Referred By Contfrances lozano Referred To Contact Diagnoses Spinal stenosis of cervical region Procedures MRI CERVICAL WO CONTRAST Bill Delong MD Phone: tel: fax: [facility] Pre-Registration [place] CALL TO MAKE APPOINTMENT ONLY [address] [place] [address] Phone: tel: fax: Referral ID Status Reason Start Date Expiration Date V isits Requested Visits Authorized [id number] Closed [facility] TO SCHEDULE (SGF) 07/24/2016 08/23/2016 1 1 Encounter Details Date Type Department Care Team (Latest Contact Info) Description 07/25/2016 Ancillary Orders [facility] CALL TO MAKE APPOINTMENT ONLY [address] [place] [address] Bill Delong MD [address] [place] [address] Spinal stenosis of cervical region Social History Tobacco Use Types Packs/Day Years Used Date Smoking Tobacco: Never Alcohol Use Standard Drinks/Week Comments No 0 (1 standard drink = 0.6 oz pur e alcohol) Sex and Gender Information Value Date Recorded Sex Assigned at Not on file 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 [id number] Narrative Procedure Note Jose Stephenson MD - [...] to specific findings above for further details. [id number] us Bill Delong MD MR ORDERABLES Final Re sult documented in this encounter Visit Diagnoses Diagnosis Spinal stenosis of cervical region Spinal stenosis in cervical region Spinal stenosis of cervical region Spinal stenosis in cervical region documented in this encounter Care Teams Hoop Rolls Operator Relationship Specialty Start Date End Date Gen Suresh MD [address] [place] [address] [place] [address] PCP - General Family Practice 08/02/16 documented as of this encounter
--- OUTSIDE RECORDS SUMMARY | 2025-01-27 03:49 | XMS_ITS | Clinical Summary ---
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 ESHAatterson 07-30-16 Ra Lead-01/22/2002 Implanted: 002 (Quantity not on file) Lead [employer] 5076-52 / [id number] / Description:This lead is par t of a MRI condtional pacemaker system.. Stephane 07-30-16. Mri Condtitional Pacemaker-07/18/19 17 Implanted: 017 by Guicho Villar MD (Quantity not on file) Pacemaker [employer] ADVISA DR SHIRLEY [id number] / [id number] / Description:This is a MRI co ndtional pacemaker generator, Medtronic Rep must be present for all MRI scans. Stephane 07-30-16. [facility] , fax: [phone] Dr Borja is patient's bag presser. Porcine Valve Replacement Valve Description:By Patient sharon lozano and confirmed by Brittny at Dr Guicho Villar ([facility]) after review of medical records, this was placed in 2001. It is a biological tissue implant. ESHAatterson 07-30-16. Aortic Valve Repair/Replacemen t-08/22/1982 Implanted: 983 (Quantity not on file) Valve Description:Patient had aort ic repair procedure following crush injury to chest here at [facility]. No records remain regarding surgery or possible implants used and patient does not have any information regarding implants from this procedure. Per Dr Henri Mahmood, Chest Xray will be obtained prior to MRI scans to ensure no metallic implants are present, other than MRI conditonal pacemaker. ESHAatterson 07-30-16 [facility] Care Teams Professor Of Psychology Relationship Specialty Start Date End Date Gen Suresh MD [address] [place] [address] [place] [address] PCP - General Family Practice 08/02/16
--- OUTSIDE RECORDS SUMMARY | 2025-01-27 03:49 | XMS_ITS | Encounter Summary ---
Author Organization [facility] Address [address] [place] [address] Care Team Providers Care Loading Supervisor Name Role Phone Gen Suresh MD Primary Care Provider [phone] Encounter Details Date Type Department Care Team (Late st Contact Info) Description 10/06/2013 Ancillary Orders [facility] Oral and Maxillo Surgery[address] [place] [address] Manny Austin Jr., DMD NO ADDRESS ON FILE Unspecified dental caries (Primary Dx) Social History Tobacco Use Types Packs/Day Years Used Date Smoking Tobacco: Never Alcohol Use Standard Drinks/Week Comments No 0 (1 standard drink = 0.6 oz pur e alcohol) Sex and Gender Information Value Date Recorded Sex Assigned at Not on file 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
--- OUTSIDE RECORDS SUMMARY | 2025-01-27 03:49 | XMS_ITS | Clinical Summary ---
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 Gender Identity Not on file Sexual Orientation [...] 08/02/2016 1:21 PM CDT Plan of Treatment Upcoming Encounters Date Type Department Care Team (Latest Contact Info) Description 02/09/2025 7:40 AM CDT Hospital Encounter [facility] Operating Room [address] [place] [address] Aly Biswas MD [address] [place] [address] MARLENE (obstructive sleep apnea) 02/09/2025 7:40 AM CDT - 02/09/2025 8:10 AM CDT Surgery [facility] Operating Room [address] [place] [address] Aly Biswas MD [address] [facility] [place] [address] DRUG INDUCED SLEEP ENDOSCOPY Scheduled Procedures Name Priority Associated Diagnoses Date/Ti me DRUG INDUCED SLEEP ENDOSCOPY MARLENE (obstructive sleep apnea) 02/09/2025 7:40 AM CDT Health Maintenance Due Date Last Done Comments [...] on patient's age to complete this topic Goals Goal Patient Goal Type Associated Problems Recent Progress Patient-Stated? Author Autogenera tushar Goal Care Plan Autogenerated Problem No Love Veloz RN Medical Devices Implanted Type Area Community Dietitian Device Identifier Shelf Expiration Date Model / Serial / Lot Ra Lead-01/22/2002 Implanted: 002 (Quantity not on file) Lead [employer] 5076-52 / [id number] / Description:This lead is par t of a MRI condtional pacemaker system.. Stephane 07-30-16. Rv Lead-01/22/2002 Implanted: 002 (Quantity not on file) Lead [employer] 5076-58 / [id number] / Description:This lead is par t of a Medtronic condtional pacemaker system. Stephane 07-30-16 Mri Condtitional Pacemaker-07/18/19 17 Implanted: 017 by Guicho Villar MD (Quantity not on file) Pacemaker [employer] ADVISA DR SHIRLEY [id number] / [id number] / Description:This is a MRI co ndtional pacemaker generator, Medtronic Rep must be present for all MRI scans. Stephane 07-30-16.[facility]: [facility] , fax: [phone] Dr Borja is patient's nurse healthcare manager. Porcine Valve Replacement Valve Description:By Patient repor t and confirmed by Brittny at Dr Guicho Villar ([facility]) after review of medical records, this was placed in 2001. It is a biological tissue implant. Lonnieson 07-30-16. Aortic Valve Repair/Replacemen t-08/22/1982 Implanted: 983 (Quantity not on file) Valve Description:Patient had aort ic repair procedure following crush injury to chest here at [facility]. No records remain regarding surgery or possible implants used and patient does not have any information regarding implants from this procedure. Per Dr Henri Mahmood, Chest Xray will be obtained prior to MRI scans to ensure no metallic implants are present, other than MRI conditonal pacemaker. ESHAatterson 07-30-16 Additional Health Concerns Active Problems Noted Date Diagnosed Date Autogenerated Problem 01/25/2025 Care Teams Maple Products Maker Relationship Specialty Start Date End Date Gen Suresh MD [address] [place] [address] [place] [address] PCP - General Family Practice 08/02/16
--- OUTSIDE RECORDS SUMMARY | 2025-01-27 03:49 | XMS_ITS | Patient Health Record ---
Author Organization [facility] Address [address] [place] [address] Care Team Providers Care Gis Programmer Name Role Phone Moe Woo Primary Care Provider Aldo Rincon Unavailable [phone] Nydia Olsen Unavailable [phone] Allergies Allergen (clinical drug ingredient) Drug/Non Drug [...] Notes UA Without Micro-[place], [place] - [id number] Reviewed date:12/23/2024 02:35:03 PM Interpretation: Performing Lab: Notes/Report: Glucose 0 Bili 1+ Ketones 0 [place] 1.025 Blood 0 pH 6.0 Protein 0 Urobili 0 Nitrites 0 Leukocytes 0 UA Without Micro-[place], [place] - [id number] Reviewed date:04/23/2024 10:30:04 AM Interpretation: Performing Lab: Notes/Report: Glucose - Bili - Ketones - Sp [place] 1.020 Blood - pH 6.0 Protein +- Urobili - Nitrites - Leukocytes - UA Without [place], [place] - [id number] Reviewed date:06/25/2024 10:28:55 AM Interpretation: Performing Lab: Notes/Report: Glucose 0 Bili 0 Ketones 0 Sp [place] 1.005 Blood 0 pH 6.0 Protein 0 Urobili 0 Nitrites 0 Leukocytes 0 UA Without Micro-[place], [place] - [id number] Reviewed date:03/17/2024 09:48:28 AM Interpretation: Performing Lab: Notes/Report: Glucose - Bili - Ketones - [place] 1.015 Blood - pH 5.5 Protein +- Urobili - Nitrites - Leukocytes - PSA Diagnostic--[id number] Reviewed date:04/27/2024 11:56:52 AM Interpretation: Performing Lab: [...] Digital Breast Brandt osynthesis, unilateral [place] - [id number] Reviewed date:10/07/2024 03:58:30 PM Interpretation: Performing Lab: Notes/Report: Reason For Referral Reason Referring to Dr Kizzy Lockwood at [facility] for IPP. Thank you! Diagnosis 1 Erectile disorder (N 52.9) Referral Organization [facility] Referring Provider First Name Aldo Referring Provider Last Name Mckenzie Referring Provider Speciality Urology Referral Priority Routine Reason chronic pain Diagnosis 1 Chronic pain syndrom e (G89.4) Referring Provider First Name Tyler alicia Referring Provider Last Name Chilo Referring Provider Speciality Internal M edicine Referred Organization [facility] Referred Provider Damian Lopez Referred Address [address] [place] [phone], General Notes Ankita George 01/07 09:25:07 AM CDT > atc Ferny hobbs Katrina 01/07/2025 09:34:35 AM CDT > Patient called and got scheduled for [facility] appt. Sent ppwk. , Sent thank you letter Referral Priority Routine Reason chronic pain Diagnosis 1 Chronic pain syndrom e (G89.4) Referral Organization [facility] Referring Provider First Name [...] Duration) Notes Start Date End Date Status Magnesium Oxide 400 MG Tablet 1 tablet with food Orally Once a day 01/21/2025 Active tiZANidine HCl 4 MG Capsule 1 capsule at bedtime as needed Orally daily; Duration: 30 days 01/04/2025 Active predniSONE 20 MG Tablet 1 tablet with fo od or milk Orally Once a day; Duration: 7 days 12/09/2024 Not-Taking Nystatin 950099 UNIT/GM Cream 1 application Externally Twice a day to both feet 01/21/2025 Active Citalopram Hydrobromide 40 mg Tablet TAKE ONE TABLET BY MOUTH At Bedtime; Duration: 30 Active Solifenacin Succinate 5 mg Tablet TAKE ONE TABLET BY MOUTH EVERY DAY; Duration: 30 Not-Taking Linezolid 600 MG Tablet 1 tablet Orally twice a day 01/21/2025 Active MgO 400 (240 Mg) MG Tablet 1 tablet with food Orally Once a day Active Furosemide 20 MG Tablet 1 tablet Orally daily; Duration: 30 days As needed Active Metoprolol Succinate ER 25 MG Tablet Extended Release 24 Hour 1 tablet Orally Once a day Active HYDROcodone-Acetaminophen 10-325 MG Tablet 1 tablet as needed Orally every 6 hrs Not-Taking Levothyroxine Sodium 25 mcg Tablet TAKE ONE TABLET BY MOUTH EVERY MORNING ON a EMPTY stomach; Duration: 30 Active Tamsulosin HCl 0.4 mg Capsule TAKE ONE CAPSULE BY MOUTH TWICE DAILY; Duration: 30 Active Carisoprodol 350 MG Tablet 1 tablet as needed Orally Four times a day Not-Taking Ibuprofen 600 MG Tablet 1 tablet with fo od or milk as needed Orally Three times a day Not-Taking ARIPiprazole 5 mg Tablet TAKE ONE TABLET BY MOUTH EVERY DAY; Duration: 28 Active Ondansetron 4 MG Tablet Disintegrating 1 tablet on the tongue and allow to dissolve Orally Once a day Not-Taking Belsomra 20 MG Tablet 1/2 tablet at bedt catie as needed Orally Once a day; Duration: 30 days 09/22/2024 02/19/2025 Active Vitamin B Complex - Capsule as directed Orally Not-Takin g Myrbetriq 50 MG Tablet Extended Release 24 Hour 1 tablet Orally Once a day; Duration: 90 days 12/23/2024 Active Vitamin C 500 MG Capsule as directed Orally Not-Taking Solifenacin Succinate 5 MG Tablet 1 tablet Orally Once a day; Duration: 90 days 12/23/2024 Active Myrbetriq 50 mg Tablet Extended Release 24 Hour TAKE ONE TABLET BY MOUTH ONCE DAILY; Duration: 30 Not-Taking Buprenorphine HCl-Naloxone HCl 2-0.5 MG Tablet Sublingual 1 Sublingual bid; Duration: 30 days 01/04/2025 05/04/2025 Active Social History Tobacco Use: Social History [...] 11/16/24 CIME Dep/Tob 11/16/24 CIME Dep/Tob 11/16/24 Problems Problem Type SNOMED Code ICD Code Onset Dates Problem Status W/U Status Risk Notes Problem Primary insomnia (6383224) Primary insomnia (F51.01) Active confirmed Problem Chronic pain syndrome (345077637) Chronic pain syndrome (G89.4) Active confirmed Problem Hematoma (44452726) Hematoma (T14.8XXA) Active confirmed Problem Urinary frequency (836872630) Urinary frequency (R35.0) Active confirmed Problem Edema (215454403) Lower extremity edema (R60.0) Active confirmed Problem Urgent desire to urinate (84223663) Urinary urgency (R39.15) Active confirmed Problem Cellulitis of lower limb (886773060) Cellulitis of left lower extremity (L03.116) Active confirmed Problem Breast lump (87111153) Breast mass in male (N63.0) Active confirmed Problem Bursitis of shoulder (491117117) Subscapular bursitis (M75.50) Active confirmed Problem Erectile dysfunction (disorder) (878941489) Erectile disorder (N52.9) Active confirmed Problem Benign prostatic hypertrophy with outflow obstruction (731370884) BPH loc w urin obs/LUTS (N40.1) Active confirmed Problem Primary hypertension (62924677) Primary hypertension (I10) Active confirmed Problem Cardiac pacemaker in situ (764471512) Pacemaker (Z95.0) Active confirmed Problem 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) Active confirmed Problem 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 dysfunction) of organic origin (N52.9) Active confirmed Vital Signs Heart Rate 75 /min 01/21/2025 Temperature 98.2 degrees Fahrenheit 01/21/2025 Respiratory Rate 17 /min 01/05/2025 Oximetry 94 % 01/12/2025 Height-cm 180.34 cm 01/21/2025 Blood pressure diastolic 74 mm Hg 01/21/2025 Weight-kg 94.8 kg 01/21/2025 Height 71 in 01/21/2025 Blood pressure systolic 111 mm Hg 01/21/2025 Weight 209 lbs 01/21/2025 BMI 29.15 kg/m2 01/21/2025 Procedures Procedure Date Ordered Date Performed Result Body Sit e PVR (Post Void Residual) 03/17/2024 03/17/2024 N/A PVR (Post Void Residual) 12/23/2024 12/23/2024 N/A Encounters Encounter Location Date Provider Diagnosis [facility] [address] [place] [phone] 01/21/2025 Moe Woo Chronic pain syndrome G89.4 ; Lower extremity edema R60.0 and Cellulitis of left lower extremity L03.116 [facility] [address] [place] [address] [place] [address] 03/17/2024 Aldo Rincon Erectile disorder N52.9 ; BPH loc w urin obs/LUTS N40.1 and Prostate cancer screening Z12.5 [facility] [address] [place] [phone] 04/06/2024 Moe Woo Cellulitis of pretibial region L03.119 [facility] [address] [place] [phone] 04/20/2024 Moe Woo Screening for prostate cancer Z12.5 [facility] [address] [place] [address] [place] [address] 04/23/2024 Aldo Rincon BPH loc w urin obs/LUTS N40.1 [facility] [address] [place] [phone] 05/26/2024 Moe Woo Acute contact dermatitis L25.9 and Primary hypertension I10 [facility] [address] [place] [address] [place] [address] 06/25/2024 Nydia Olsen Urinary frequency R35.0 ; BPH loc w urin obs/LUTS N40.1 and Erectile dysfunction N52.9 [facility] [address] [place] [address], [place] [address] 09/10/2024 Moe Woo Hematoma T14.8XXA and Breast mass in male N63.0 [facility] [place] 11/04/2024 Moe Woo Primary hypertension I10 and BPH loc w urin obs/LUTS N40.1 [facility] [address] [place] [address], [place] [address] 11/16/2024 Moe Woo Lower extremity edema R60.0 ; Primary hypertension I10 and Depression screen Z13.31 [facility] [address] [place] [phone] 12/09/2024 Moe Woo Cellulitis of left lower extremity L03.116 [facility] [address] [place] [address] 12/16/2024 Moe Woo Lower extremity edema R60.0 [facility] [address] [place] [address] [address] [place] [address] 12/23/2024 Nydia Olsen BPH loc w urin obs/LUTS N40.1 ; Erectile disorder N52.9 ; Urinary frequency R35.0 and Urinary urgency R39.15 [facility] [address] [place] [phone] 01/04/2025 Moe Woo Chronic pain syndrome G89.4 ; Primary hypertension I10 and ED (erectile dysfunction) of organic origin N52.9 [facility] [address] [place] [address], [place] [address] 01/05/2025 Moe Woo Encounter for Medicare annual wellness exam Z00.00 [facility] [address] [place] [phone] 01/12/2025 Moe Woo Cellulitis of pretibial region L03.119 [facility] [place] 01/11/2025 Moe Woo Primary hypertension I10 and Chronic pain syndrome G89.4 [facility] [address] [place] [address] [address] [place] [address] 04/20/2024 Aldo Mckenzie Screening for prostate cancer Z12.5 [facility] [address] [place] [address], [place] [address] 05/04/2024 Moe Woo Primary insomnia F51.01 [facility] [address] [place] [address], [place] [address] 09/14/2024 Moe Woo Breast mass in male N63.0 [facility] [address] [place] [address], [place] [address] 09/22/2024 Moe Woo Primary insomnia F51.01 [facility] [place] 11/03/2024 Moe Woo Primary hypertension I10 and BPH loc w urin obs/LUTS N40.1 [facility] [place] 12/08/2024 Moe Woo Primary hypertension I10 and Primary insomnia F51.01 [facility] [address] [place] [address] [place] [address] 12/23/2024 Nydia Olsen Encounter for screening for malignant neoplasm of prostate Z12.5 [facility] [address] [place] [address], [place] [address] 01/04/2025 Moe Woo Chronic pain syndrome G89.4 [facility] [address] [place] [address], [place] [address] 01/14/2025 Moe Woo Assessments Encounter Date Diagnosis (ICD Code) Assessment Notes Treatment Notes Treatment Clinical Notes Section Notes 03/17/2024 Erectile disorder (ICD-10 - N52.9) t 04/23/2024 BPH loc w urin obs/LUTS (ICD-10 - N40.1) 04/20/2024 Screening for prostate cancer (ICD-10 - Z12.5) 09/22/2024 Primary insomnia (ICD-10 - F51.01) 01/04/2025 Primary hypertension (ICD-10 - I10) 12/23/2024 BPH loc w urin obs/LUTS (ICD-10 - N40.1) 12/23/2024 Erectile disorder (ICD-10 - N52.9) 04/06/2024 Cellulitis of pretibial region (ICD-10 - L03.119) p 04/20/2024 Screening for prostate cancer (ICD-10 - Z12.5) 05/04/2024 Primary insomnia (ICD-10 - F51.01) 05/26/2024 Acute contact dermatitis (ICD-10 - L25.9) 06/25/2024 Urinary frequency (ICD-10 - R35.0) PLAN - PATIENT ADVISED FIGUEROA WAS HELPING SOME, HE WOULD LIKE TO CONTINUE THIS, HE HAS ENOUGH REFILLS, CURRENTLY. 01/04/2025 Chronic pain syndrome (ICD-10 - G89.4) 11/16/2024 Primary hypertension (ICD-10 - I10) 12/08/2024 Primary insomnia (ICD-10 - F51.01) 12/08/2024 Primary hypertension (ICD-10 - I10) 12/09/2024 Cellulitis of left lower extremity (ICD-10 - L03.116) 12/16/2024 Lower extremity edema (ICD-10 - R60.0) Cellulits is improving. 12/23/2024 Encounter for screening for malignant neoplasm [...] list with appropriate and specific ICD-10's. 01/11/2025 Chronic pain syndrome (ICD-10 - G89.4) 01/11/2025 Primary hypertension (ICD-10 - I10) 01/12/2025 Cellulitis of pretibial region (ICD-10 - L03.119) 01/21/2025 Chronic pain syndrome (ICD-10 - G89.4) [...] 01/21/2025 Lower extremity edema (ICD-10 - R60.0) 03/17/2024 BPH loc w urin obs/LUTS (ICD-10 - N40.1) t 06/25/2024 BPH loc w urin obs/LUTS (ICD-10 - N40.1) PLAN - CONTINUE MONITORING SYMPTOMS, PVR WAS NOT COMPLETED TODAY, WILL BE COMPLETED NEXT VISIT 09/10/2024 Hematoma (ICD-10 - T14.8XXA) 09/10/2024 Breast mass in male (ICD-10 - N63.0) 09/14/2024 Breast mass in male (ICD-10 - N63.0) 11/03/2024 BPH loc w urin obs/LUTS (ICD-10 - N40.1) 11/03/2024 Primary hypertension (ICD-10 - I10) 11/04/2024 BPH loc w urin obs/LUTS (ICD-10 - N40.1) 11/04/2024 Primary hypertension (ICD-10 - I10) 11/16/2024 Lower extremity edema (ICD-10 - R60.0) 11/16/2024 Depression screen (ICD-10 - Z13.31) 03/17/2024 Prostate cancer screening (ICD-10 - Z12.5) t 01/21/2025 Cellulitis of left lower extremity (ICD-10 - L03.116) 01/04/2025 ED (erectile dysfunction) of organic origin (ICD-10 - N52.9) 06/25/2024 Erectile dysfunction (ICD-10 - N52.9) PLAN - ALETHEA APPT. - WILL REFER TO [facility] AFTER FAILING ALETHEA, PATIENT ALREADY HAD ONE 05/26/2024 Primary hypertension (ICD-10 - I10) 12/23/2024 Urinary frequency (ICD-10 - R35.0) 12/23/2024 Urinary urgency (ICD-10 - R39.15) 03/17/2024 Other Continue tamsulosin Cysto next available. trial tadalafil 20mg. If he fails he may need referall for ALETHEA. Current psa. t 04/20/2024 Other patient here fo r PSA lab draw form Dr Rincon Venipuncture performed by Shweta Brandt. Left arm/hand. One attempt. Pt tolerated well, bleeding controlled with light dressing. Lab sent to [facility] via drier unloader. 04/23/2024 Other ALETHEA appointment. If ALETHEA fails [...] Future Test Test Name Order Date PSA Diagnostic--[id number] 04/29/2025 Next Appt Details Provider Name:Damian Lopez, 03/31/2025 10:20:00 AM, [address] [place], [address], Provider Name:Nydia Aviles, 06/25/2025 11:10:00 AM, [address], [place] [address], [place], [address], Insurance Providers Payer Name Payer Address Payer Phone Subscriber Number Group Number Insured Name Patient Relationship to Insured Coverage Start Date Coverage End Date [employer] Medicare Replacement [address] [address] [place] [address] [id number] Benjamin Walker Self - patient is the insured [place] Medicaid [address] [place] [address] [phone] [id number] Benjamin Walker Self - patient is the insured [place] Medicare [address] [place] [address] [id number] Benjamin Walker Self - patient is the insured Medications Administered Medication Instructions Date of Administration Dosage Notes BUPivacaine HCl 04/16/2022 1 mL Subscapul ar Bursa BUPivacaine HCl 02/25/2023 1 mL DEPO-Medrol 04/16/2022 80 mg subscapular B ursa DEPO-Medrol 02/25/2023 80 mg dexAMETHasone 12/17/2022 10 mg dexAMETHasone 12/27/2023 10 mg dexAMETHasone 05/26/2024 10 mg dexAMETHasone 12/09/2024 10 mg dexAMETHasone 01/21/2025 10 mg Ketorolac Tromethamine 01/21/2025 60 mg Rocephin 04/06/2024 1 g Rocephin 12/09/2024 [...]
--- OUTSIDE RECORDS SUMMARY | 2025-01-27 03:49 | XMS_ITS | Encounter Summary ---
Author Organization [facility] Address [address] [place] [address] Care Team Providers Care Counsellors Name Role Phone Gen Suresh MD Primary Care Provider [phone] Encounter Details Date Type Department Care Team (Latest Contact Info) Description 01/03/2007 Outpatient Historical [facility] [place] [phone] Lars Pierre, [place]AFULS NO ADDRESS ON FILE Unspecified Dental Caries (Primary Dx) Social History Tobacco Use Types Packs/Day Years Used Date Smoking Tobacco: Never Assessed Sex and Gender Information Value Date Recorded Sex Assigned at Not on file 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
[2025-01-27 03:56] VITALS: BP 105/67; PULSE 72; RESP 12; O2SAT 93
--- NOTE | 2025-01-27 04:02 | CTR_ITS ---
PROCEDURE INFORMATION: Exam: CT Head Without Contrast Exam date and time: 01/27/2025 4:15 AM Age: 59 years old Clinical indication: Altered mental status/memory loss; Additional info: Hallucinations TECHNIQUE: Imaging protocol: Computed tomography of the head without contrast. Radiation optimization: All CT scans at this facility use at least one of these dose optimization techniques: automated exposure control; mA and/or kV adjustment per patient size (includes targeted exams where dose is matched to clinical indication); or iterative reconstruction. COMPARISON: CR XR eye foreign body [id number] 09/10/2019 10:39 AM RADIATION DOSE METRICS: Total DLP (mGy-cm): 1179.98 FINDINGS: Brain: No acute infarction, hemorrhage, mass, or extra-axial fluid collection is identified. No midline shift. Mild generalized senescent change. Cerebral ventricles: No hydrocephalus. Paranasal sinuses: Paranasal sinuses are grossly clear. Mastoid air cells: Mastoid air cells are grossly clear. Bones: Calvarium appears intact. Soft tissues: Unremarkable. CT/CT head wo con* [id number] IMPRESSION: No acute intracranial abnormality.
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
[2025-01-27 04:26] VITALS: BP 105/76; PULSE 71; O2SAT 95
[2025-01-27 05:00] VITALS: BP 111/88; PULSE 76; RESP 17; O2SAT 91
[2025-01-27 05:38] VITALS: BP 109/74; PULSE 70; O2SAT 93
== END 2025-01-27 05:40 | disposition home or self-care (01) ==
PROVIDERS: Emergency Provider Student in an Organized Health Care Education/Training Program; PCP Internal Medicine
DX: Z03.89 Encounter for observation for other suspected diseases and conditions ruled out (principal); Z95.0 Presence of cardiac pacemaker
CPT/HCPCS: 70450; 99284

== ENCOUNTER 2025-02-02 08:09 | Outpatient (CLI) | payer MEDICARE, MEDICAID, SELFPAY ==
--- NOTE | 2025-02-02 08:19 | XR_ITS ---
WS: [id number] Right shoulder, 3 views, 02/02/2025 Clinical Data: ACUTE PAIN OF RIGHT SHOULDER Comparison: None. Findings: No fractures or dislocations are seen. The AC joint is normal. The adjacent right clavicle, right scapula and ribs are normal. The soft tissues are unremarkable. Cardiac pacemaker wires and mediastinal sutures are visible. XR/XR shoulder RT min 2V* [id number] Impression: Negative right shoulder.
--- NOTE | 2025-02-02 08:19 | XR_ITS ---
WS: [email or web address] Right arm and humerus, 2 views, 02/02/2025 Clinical Data: ACUTE PAIN OF RIGHT SHOULDER Comparison: None. Findings: No fractures or dislocations are seen. The shaft of the humerus is intact. XR/[place] [id number] Impression: Negative right arm and humerus.
--- NOTE | 2025-02-02 08:19 | XR_ITS ---
WS: [email or web address] Right elbow, AP and lateral views, 02/02/2025 Clinical Data: ACUTE PAIN OF RIGHT SHOULDER Comparison: None. Findings: No fractures or dislocations are seen. The radial head is normal. The soft tissues are unremarkable. There is a small olecranon spur and a small coronoid process spur. XR/XR elbow RT 2V [id number] Impression: Minimal spurs of the olecranon and coronoid process.
== END 2025-02-02 08:10 | disposition home or self-care (01) ==
LOC: RAD 08:13
PROVIDERS: PCP Internal Medicine; Visit Provider Internal Medicine
DX: M25.511 Pain in right shoulder (principal); Z95.0 Presence of cardiac pacemaker; M25.721 Osteophyte, right elbow
CPT/HCPCS: 73030; 73060; 73070

== ENCOUNTER 2025-02-13 03:47 | Emergency (ER) | payer MEDICARE, MEDICAID, SELFPAY ==
--- OUTSIDE RECORDS SUMMARY | 2025-02-09 06:53 | XMS_ITS | Encounter Summary ---
Author Organization [facility] Address [address] [place] [address] Care Team Providers Care Quality Review Trainer Name Role Phone Gen Suresh MD Primary Care Provider [phone] Reason for Visit * Auth/Cert (Routine) Specialty Diagnoses / Procedures Referred By Mckenna lozano Referred To Contact Perioperative Diagnoses MARLENE (obstructive sleep apnea) MARLENE (obstructive sleep apnea) [G47.33] Procedures [place] DISE DYN EVAL SLEEP DISORDERED BREATHING FLX DX DRUG INDUCED SLEEP ENDOSCOPY Aly Biswas MD [address] [place] [address] Phone: tel: fax: [facility] Operating Room [address] [facility] [address] [place] [address] Phone: tel: fax: Referral ID Status Reason Start Date Expiration Date Visits Re quested Visits Authorized [id number] 1 1 Encounter Details Date Type Department Care Team (Latest Contact Info) Description 02/09/2025 6:53 AM CDT - 02/09/2025 8:12 AM CDT Hospital Encounter [facility] Pre Post [address] [facility] [address] [place] [address] Aly Biswas MD [address] [place] [address] MARLENE (obstructive sleep apnea) Discharge Disposition: Home or Self Care Social History Tobacco Use Types Packs/Day Years Used Date Smoking Tobacco: Never Alcohol Use Standard Drinks/Week Comments No 0 (1 standard drink = 0.6 oz pur e alcohol) Feeling Safe Answer Date Recorded Are you in a relationship wi th someone who hurts you emotionally and/or physically? 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 Gender Identity Not on file Sexual Orientation Not on file documented as of this encounter Last Filed Vital Signs Vital Sign Reading Time Taken Comments Blood Pressure 94/65 02/09/2025 8:04 AM CDT Pulse 69 02/09/2025 8:04 AM CDT Temperature 36.2 C (97.2 F) 02/09/2025 8:04 AM CDT Respiratory Rate 14 02/09/2025 8:04 AM CDT Oxygen Saturation 96% 02/09/2025 8:04 AM CDT Inhaled Oxygen Concentration - - Weight 95.7 kg (211 lb) 02/09/2025 7:11 AM CDT Height 180.3 cm (5' 11 ) 02/09/2025 7:11 AM CDT Body Mass Index 29.43 02/09/2025 7:11 AM CDT documented in this encounter Discharge Instructions * Discharge Instructions* Martin Grant RN - 02/09/2025 8:02 AM CDT Follow up appointment is on 02/15/25 at 9:[address] Biswas. Please pay attention to the following post procedure instructions: Do not drink alcoholic beverages - including beer - for 24 hours. Alcohol enhances the effects of anesthesia and sedation. Do not drive a motor vehicle, operate machinery or power tools for 24 hours. Do not make any important decisions or sign important papers for 24 hours. You may experience lightheadedness, dizziness, and sleepiness following surgery. Please DO NOT STAYALONE. A responsible adult should be with you for this 24 hour period. Rest at home with moderate activity as tolerated. It may not be necessary to go to bed; however, itis important to rest for 24 hours following general anesthesia. Progress slowly to a regular diet unless your physician has instructed you otherwise. Start with liquids, such as soft drinks, then soup and crackers, gradually working up to solid foods. Unless instructed otherwise, you may resume your medications as scheduled. DO NOT SMOKE AND AVOID SECOND-HAND SMOKE. Tobacco smoke can delay the healing process by decreasingthe oxygen supply to your wound, & may increase your risk of infection. Smoking irritates the breathing passages and increases the risk of pneumonia, bronchitis, asthma and risk of blood clots. Certain anesthetics and pain medications may produce nausea and vomiting in certain individuals. Ifnausea becomes a problem at home, call your physician. In the meantime, rest and sleep on your sideto avoid inhaling material that you may vomit. If your physician ordered pain medication, please take it as directed. Do not drive, operate machinery or operate power tools while taking this medication. If you have any questions or concerns please contact the surgery department at [phone]. If youexperience a medical emergency go the the Emergency Room or dial 911. * Attachments The following attachments cannot be sent through Care Everywhere. * Endoscopy: Nasal: Post op (Finnish) * Sedation (Finnish) documented in this encounter Medications at Time of Discharge nystatin (MYCOSTATIN) 100,000 unit/gram Cream Apply to affected area 2 times daily. ARIPiprazole (ABILIFY) 5 mg tablet Take 5 mg by mouth daily. suvorexant (Belsomra) 10 mg tablet Take 10 mg by mouth nightly as needed for Insomnia. citalopram (CeleXA) 40 mg tablet Take 40 mg by mouth daily. doxycycline hyclate (VIBRAMYCIN) 100 mg capsule Take 100 mg by mouth 2 times daily. HYDROcodone-aceta minophen (NORCO) 10-325 mg Tablet Take 1 Tablet by mouth every 4 hours as needed for Pain, Moderate. levothyroxine 25 mcg tablet Take 25 mcg by mouth daily in the morning. linezolid (ZYVOX) 600 mg tablet Take 600 mg by mouth 2 times daily. magnesium OXIDE (MAG-OX) 400 mg (241.3 mg magnesium) tablet Take 400 mg by mouth daily. metoprolol succinate (TOPROL XL) 25 mg Extended Release 24 hour tablet Take 25 mg by mouth daily. mirabegron (Myrbetriq) 50 mg Extended Release 24 hour tablet Take 50 mg by mouth daily. solifenacin (VESICARE) 5 mg Tablet Take 5 mg by mouth daily. tamsulosin (FLOMAX) 0.4 mg capsule Take 0.4 mg by mouth daily. tiZANidine (ZANAFLEX) 4 mg Capsule Take 4 mg by mouth daily at bedtime. buprenorphine-nal oxone (SUBOXONE) 2-0.5 mg Tablet, Sublingual Place 1 Tablet under tongue 2 times daily. Once dissolved, rinse mouth with water & swallow. Wait at least 1 hour before brushing teeth. documented as of this encounter OR Notes * Operative Report - Aly Biswas MD - 02/09/2025 8:00 AM CDT Operative Report Preoperative Diagnosis: Obstructive sleep apnea with CPAP intolerance Postoperative Diagnosis: Same Procedure: Drug Induced Sleep Endoscopy Surgeon: Aly Biswas MD Anesthesia: Monitored Anesthesia Care Start time/Stop time: See anesthesia record Estimated Blood Loss: Minimal Complications: None Findings: Anterior to posterior palatal airway collapse; o/w normal upper airway exam Description of Procedure: The patient was identified in the preoperative holding area and was taken to the operating room where he was placed on the operating table in the supine position. The patient received monitored anesthesia care and when the appropriate level sedation was achieved, the fiberoptic nasopharyngolaryngoscopy was passed through the patient's right nostril and into the palatal airway. The palatal ear airway was observed during quiet respirations with the findings noted above. At this point the remainder of the upper airway was examined with the above-noted findings. At this point to fiberoptic telescope was removed from the patient and the procedure was terminated. Controlled the patient was returned to anesthesia where he underwent an uneventful reversal of anesthesia and was taken to the recovery room in stable condition. There were no operative or anesthetic complications. * Bonnie-OP - Martin Grant RN - 02/09/2025 7:49 AM CDT Physician has discussed procedure findings with patient and patient's family at bedside. Patient has met criteria for discharge and dressed with standby assistance of nurse/family member and ambulatefrom gurney to wheelchair. Patient denies pain or nausea. IV catheter removed intact and pressure dressing applied at insertion site. Patient discharged via wheelchair to family vehicle. Discharge instructions thoroughly reviewed with patient and patient's driver engineer; both verbalize understanding and state that they have no questions or concerns at this time. All personal belongings sent home with patient. documented in this encounter Plan of Treatment Not on file documented as of this encounter Procedures Procedure Name Priority Date/Time Associated Diagnosis Comments [place] DISE DYN EVAL SLEEP DISORDERED BREATHING FLX DX 02/09/2025 7:40 AM CDT MARLENE (obstructive sleep apnea) documented in this encounter Visit Diagnoses Not on filedocumented in this encounter Administered Medications Inactive Administered Medications - up to 3 most recent administrations Medication Order MAR Action Action Date Dose Rate Site lactated ringers infusion IV, at 100 mL/hr, CONTINUOUS, Starting on Sat02/09/25 at 0730, Until Sat02/09/25 at 1012, Routine Restarted 02/09/2025 7:42 AM CDT Continue from Pre-Op 02/09/2025 7:32 AM CDT 100 mL/hr New Bag 02/09/2025 7:16 AM CDT 100 mL/hr lactated ringers infusion IV, at 125 mL/hr, POST-PROCEDURE CONTINUOUS, Starting on Sat02/09/25 at 0700, Until Sat02/09/25 at 1012, Routine, PACU ondansetron (ZOFRAN) 4 mg/2 mL injection 4 mg 4 mg, IV, POST-PROCEDURE ONCE PRN, 1 dose, Starting on Sat02/09/25 at 0657, Until Sat02/09/25 at 1012, Nausea/Emesis, Routine, PACU oxymetazoline (AFRIN) 0.05 % nasal spray 2 [place] 2 [place], Both Nostrils, ONE TIME ONLY, 1 dose, On Sat02/09/25 at 0730, Routine, Pre-op Given 02/09/2025 7:15 AM CDT 2 Sprays documented in this encounter Active and Recently Administered Medications Times are shown in CDT. Scheduled Medication Order 02/07/2025 02/08/2025 02/09/2025 lidocaine (XYLOCAINE) 2% mucosal gel 10 mL 10 mL, Topical, ONE TIME ONLY, 1 dose, On Sat02/09/25 at 0730, Routine, Intra-op 0730 (Due) oxymetazoline (AFRIN) 0.05 % nasal spray 2 [place] (COMPLETED) 2 [place], Both Nostrils, ONE TIME ONLY, 1 dose, On Sat02/09/25 at 0730, Routine, Pre-op 0715 (Given - Provid er: Clara Chavez RN) Continuous Medication Order 02/07/2025 02/08/2025 02/09/2025 lactated ringers infusion IV, at 100 mL/hr, CONTINUOUS, Starting on Sat02/09/25 at 0730, Until Sat02/09/25 at 1012, Routine 0716 (New Bag - Prov ider: Clara Chavez RN)0732 (Continue from Pre-Op - Provider: Huber Rm CRNA)0741 (Paused - Provider: Huber Rm CRNA - Comment: Switch to gravity)0742 (Restarted - Provider: Huber Rm CRNA)1012 (Due: Order Ending - Provider: PROVIDER, DISCHARGE PATIENT - Comment: [Order ends at this time. Document the following action when infusion is complete: Stopped]) lactated ringers infusion IV, at 125 mL/hr, POST-PROCEDURE CONTINUOUS, Starting on Sat02/09/25 at 0700, Until Sat02/09/25 at 1012, Routine, PACU 0714 (Canceled Entry - Provider: Clara Chavez RN)0759 (Stopped - Provider: Martin Grant RN) PRN Medication Order 02/07/2025 02/08/2025 02/09/2025 ondansetron (ZOFRAN) 4 mg/2 mL injection 4 mg 4 mg, IV, POST-PROCEDURE ONCE PRN, 1 dose, Starting on Sat02/09/25 at 0657, Until Sat02/09/25 at 1012, Nausea/Emesis, Routine, PACU documented in this encounter Care Teams Quality Review Trainer Relationship Specialty Start Date End Date Gen Suresh MD [address] [place] [address] [place] [id number] PCP - General Family Practice 08/02/16 documented as of this encounter
--- OUTSIDE RECORDS SUMMARY | 2025-02-09 07:32 | XMS_ITS | Encounter Summary ---
Author Organization [facility] Address [address] [place] [address] Care Team Providers Care Bank Secrecy Act Officer Name Role Phone Gen Suresh MD Primary Care Provider [phone] Reason for Visit * Auth/Cert (Routine) Specialty Diagnoses / Procedures Referred By Mckenna lozano Referred To Contact Perioperative Diagnoses MARLENE (obstructive sleep apnea) MARLENE (obstructive sleep apnea) [G47.33] Procedures RI DISE DYN EVAL SLEEP DISORDERED BREATHING FLX DX DRUG INDUCED SLEEP ENDOSCOPY Aly Biswas MD [address] [facility] [place] [address] Phone: tel: fax: [facility] [address] [facility] [address] [place] [address] Phone: tel: fax: Referral ID Status Reason Start Date Expiration Date Visits Re quested Visits Authorized [id number] 1 1 Encounter Details Date Type Department Care Team (Late st Contact Info) Description 02/09/2025 7:32 AM CDT Anesthesia Event [facility] [address] [facility] [address] [place] [address] Huber Rm CRNA [address] [place] [address] [place] [address] Anesthesia Record Procedure Summary Procedure Name Responsible Anesthesiologist Anesthesia Start Time Anesthesia Stop Time DRUG INDUCED SLEEP ENDOSCOPY (Nose) Huber Rm RN TRAUMA 02/09/25 0732 02/09/25 0748 Events Date Time Event Comment 02/09/2025 0659 AN Equip Check Anesthesia eq uipment and materials checked in accordance with local policy. 0725 0732 An Start 0732 An Start Data 0732 Pre-Induction Immediate pre- induction anesthetic assessment performed. Vital signs as noted on graphic. 0733 In Room This event disp lays the In Room time documented in the Surgical Log. Deleting this event will not remove it from the log but will remove it from the Grid and Graph timeline. 0736 An Induction 0736 Anesthesia Ready 0738 Procedure Start This event d isplays the Procedure Start time documented in the Surgical Log. Deleting this event will not remove it from the log but will remove it from the Grid and Graph timeline. 0740 Procedure Stop This event di splays the Procedure Stop time documented in the Surgical Log. Deleting this event will not remove it from the log but will remove it from the Grid and Graph timeline. 0741 an stop data 0744 Out of Room This event disp lays the Out of Room time documented in the Surgical Log. Deleting this event will not remove it from the log but will remove it from the Grid and Graph timeline. 0748 An Stop 0748 Hand-off to Receiving Clinic subhash Meds Name Total propofol (DIPRIVAN) 10 mg/mL injection 150 mg lidocaine PF (XYLOCAINE MPF) 2% injectio n 5 mL lactated ringers infusion 100 mL * Agents No agents on file. * Blood No blood administrations on file. 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 Gender Identity Not on file Sexual Orientation Not on file documented as of this encounter OR Notes * Anesthesia Postprocedure Evaluation - Huber Rm CRNA - 02/09/2025 7:57 AM CDT Post Anesthesia Evaluation Vitals: Vitals Value Taken Time BP 93/59 02/09/25 07:54 Temp 36.5 ??C 02/09/25 07:44 Resp 14 02/09/25 07:54 SpO2 100 % 02/09/25 07:54 Pulse 70 02/09/25 07:54 Heart Rate Pain Rating: Anesthesia Post Evaluation Patient location during evaluation: PACU Patient participation: patient was able to participate in the post op evaluation Level of consciousness: 0 = alert, responsive, answers simple questions appropriately, able to perform simple tasks Airway patency: patent Nausea or Vomiting: none Cardiovascular status: regular rate and rhythm Respiratory status: no respiratory symptoms Hydration status: well hydrated Medications given intra-operatively: Medications propofol (DIPRIVAN) 10 mg/mL injection (mg) Date/Time Rate/Dose/Volume Action Admin User Audit 02/09/25 0736 100 mg Given Huber Rm CRNA 0738 50 mg Given Huber Rm CRNA lidocaine PF (XYLOCAINE MPF) 2% injection (mL) Date/Time Rate/Dose/Volume Action Admin User Audit 02/09/25 0736 5 mL Given Huber Rm CRNA lactated ringers infusion (mL/hr) Date/Time Rate/Dose/Volume Action Admin User Audit 02/09/25 0732 100 mL/hr Continue from Pre-Op Huber Rm CRNA edited 0741 Paused Huber Rm CRNA Comment: Switch to gravity 0742 100 mL Restarted Huber Rm CRNA Brett L Welden, CRNA Cosigned by Aly Biswas MD at 02/09/2025 8:10 AM CDT * Anesthesia Handoff - Huber Rm CRNA - 02/09/2025 7:48 AM CDT Post-Anesthetic transfer of care report elements to appropriate post-anesthesia recovery environment completed in accordance with procedure. I completed my handoff to the receiving nurse during which we: 1. Identified the patient 2. Identified the responsible provider 3. Reviewed the pertinent medical history 4. Discussed the surgical course 5. Reviewed intra-op anesthesia management and issues during anesthesia 6. Set expectations for post-procedure period 7. Orders as necessary and appropriate for continuation of care are present in Epic. 8. Allowed opportunity for questions and acknowledgement of understanding. Vital Signs: Vitals Value Taken Time BP 85/52 02/09/25 07:44 Temp 36.5 ??C 02/09/25 07:44 Resp 14 02/09/25 07:44 SpO2 96 % 02/09/25 07:44 Pulse 74 02/09/25 07:44 Heart Rate 7:48 AM Huber Rm CRNA * Anesthesia Preprocedure Evaluation - Huber Rm CRNA - 02/09/2025 7:04 AM CDT Relevant Problems CARDIOVASCULAR (+) Heart attack Anesthesia Evaluation Patient summary reviewed and Nursing notes reviewed Airway Mallampati: III TM distance: >3 FB Neck ROM: full Dental Pulmonary - normal exam (+) sleep apnea on CPAP Cardiovascular - normal exam Exercise tolerance: good (+) pacemaker, valvular problems/murmurs, past [place], CAD Neuro/Psych (+) psychiatric history GI/Hepatic/Renal - negative ROS Endo/Other - negative ROS Abdominal - normal exam Anesthesia History Anesthesia Plan ASA Final: 3 MAC NPO status > 8 hours Anesthetic plan and risks discussed with Patient. Plan discussed with Surgeon/Proceduralists. documented in this encounter Plan of Treatment Not on file documented as of this encounter Visit Diagnoses Not on filedocumented [...] Bag 02/09/2025 7:16 AM CDT 100 mL/hr lidocaine PF 2% (XYLOCAINE MPF) injection IV, INTRA-PROCEDURE PRN, Starting on Sat02/09/25 at 0736, Until Sat02/09/25 at 0748, Routine, Anesthesia Intra-op Given 02/09/2025 7:36 AM CDT 5 mL propofoL (DIPRIVAN) injection IV, INTRA-PROCEDURE PRN, Starting on Sat02/09/25 at 0736, Until Sat02/09/25 at 0748, Anesthesia Intra-op Given 02/09/2025 7:38 AM CDT 50 mg Given 02/09/2025 7:36 AM CDT 100 mg documented in this encounter Care Teams Bank Secrecy Act Officer Relationship Specialty Start Date End Date Gen Suresh MD [address] [place] [address] [place] [address] PCP - General Family Practice 08/02/16 documented as of this encounter
--- OUTSIDE RECORDS SUMMARY | 2025-02-09 07:40 | XMS_ITS | Encounter Summary ---
Author Organization [facility] Address [address] [place] [address] Care Team Providers Care Supervisor Pipeline Maintenance Name Role Phone Gen Suresh MD Primary Care Provider [phone] Reason for Visit * Auth/Cert (Routine) Specialty Diagnoses / Procedures Referred By Mckenna lozano Referred To Contact Perioperative Diagnoses MARLENE (obstructive sleep apnea) MARLENE (obstructive sleep apnea) [G47.33] Procedures [place] DISE DYN EVAL SLEEP DISORDERED BREATHING FLX DX DRUG INDUCED SLEEP ENDOSCOPY Aly Biswas MD [address] [place] [address] Phone: tel: fax: [facility] Operating Room [address] [facility] [address] [place] [address] Phone: tel: fax: Referral ID Status Reason Start Date Expiration Date Visits Re quested Visits Authorized [id number] 1 1 Encounter Details Date Type Department Care Team (Late st Contact Info) Description 02/09/2025 7:40 AM CDT - 02/09/2025 8:10 AM CDT Surgery [facility] Operating Room [address] [facility] [address] [place] [address] Ayl Biswas MD [address] [place] [address] DRUG INDUCED SLEEP ENDOSCOPY Surgery Details Date/Time Status Location OR Service Patient Class Case Class Case Type Trauma Case? 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 If youexperience a medical emergency go the the Emergency Room or dial 911. * Attachments The following attachments cannot be sent through Care Everywhere. * Endoscopy: Nasal: Post op (Portuguese) * Sedation (Portuguese) documented in this encounter Medications at Time [...] instructions thoroughly reviewed with patient and patient's subway train driver; both verbalize understanding and state that they have no questions or concerns at this time. All personal belongings sent home with patient. documented in this encounter Plan of Treatment Not on file documented as of this encounter Procedures Procedure Name Priority Date/Time Associated Diagnosis Comments VT DISE DYN EVAL SLEEP DISORDERED BREATHING FLX DX 02/09/2025 7:40 AM CDT MARLENE (obstructive sleep apnea) documented in this encounter Visit Diagnoses Diagnosis MARLENE (obstructive sleep apnea) Obstructive sleep apnea (adult) (pediatric) documented in this encounter Administered Medications Inactive Administered [...] oxymetazoline (AFRIN) 0.05 % nasal spray 2 [place] 2 [place], Both Nostrils, ONE TIME ONLY, 1 dose, [...] oxymetazoline (AFRIN) 0.05 % nasal spray 2 [place] (COMPLETED) 2 [place], Both Nostrils, ONE TIME ONLY, 1 dose, [...] CONTINUOUS, Starting on Sat02/09/25 at 0700, Until Tu02/09/25 at 1012, Routine, PACU 0714 (Canceled Entry - Provider: Clara Chavez RN)0759 (Stopped - Provider: Martin Grant RN) PRN Medication Order 02/07/2025 02/08/2025 02/09/2025 ondansetron (ZOFRAN) 4 mg/2 mL injection 4 mg 4 mg, IV, POST-PROCEDURE ONCE PRN, 1 dose, Starting on Sat02/09/25 at 0657, Until Sat02/09/25 at 1012, Nausea/Emesis, Routine, PACU documented in this encounter Care Teams Supervisor Pipeline Maintenance Relationship Specialty Start Date End Date Gen Suresh MD [address] [place] [address] [place] [address] PCP - General Family Practice 08/02/16 documented as of this encounter
--- OUTSIDE RECORDS SUMMARY | 2025-02-13 03:54 | XMS_ITS | Encounter Summary ---
Author Organization [facility] Address [address] [place] [address] Care Team Providers Care Supervisor Display Fabrication Name Role Phone Gen Suresh MD Primary Care Provider [phone] Encounter Details Date Type Department Care Team (Latest Contact Info) Description 01/03/2007 Outpatient Historical [facility] Oral and Maxillo Surgery[address] [place] [address] Lars Pierre, PRAFULS NO ADDRESS ON FILE Unspecified Dental Caries (Primary Dx) Social History Tobacco Use Types Packs/Day Years Used Date Smoking Tobacco: Never Assessed Sex and Gender Information Value Date Recorded Sex Assigned at Not on file 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
--- OUTSIDE RECORDS SUMMARY | 2025-02-13 03:54 | XMS_ITS | Clinical Summary ---
Author Organization [employer] Address [address] [facility] Attn: Epic Prelude ADT JAY YARIEL PANCHAL [address] Care Team Providers Care Trolley Car Operator Name Role Phone Gen Suresh MD Primary Care Provider [phone] Allergies Active Allergy Reactions Criticality Noted Date Comments Azithromycin Diarrhea Low 10/06/2013 Clindamycin Diarrhea Low 10/06/2013 Isotretinoin Rash Low 10/06/2013 Naproxen Hives High 10/06/2013 Nefazodone Rash,Swelling Low 10/06/2013 Penicillins Anaphylaxis High 10/06/2013 Medications nystatin (MYCOSTATIN) 100,000 unit/gram Cream Apply to affected area 2 times daily. Active ARIPiprazole (ABILIFY) 5 mg tablet Take 5 mg by mouth daily. Active suvorexant (Belsomra) 10 mg tablet Take 10 mg by mouth nightly as needed for Insomnia. Active citalopram (CeleXA) 40 mg tablet Take 40 mg by mouth daily. Active doxycycline hyclate (VIBRAMYCIN) 100 mg capsule Take 100 mg by mouth 2 times daily. Active HYDROcodone-deborah taminophen (NORCO) 10-325 mg Tablet Take 1 Tablet by mouth every 4 hours as needed for Pain, Moderate. Active levothyroxine 25 mcg tablet Take 25 mcg by mouth daily in the morning. Active linezolid (ZYVOX) 600 mg tablet Take 600 mg by mouth 2 times daily. Active magnesium OXIDE (MAG-OX) 400 mg (241.3 mg magnesium) tablet Take 400 mg by mouth daily. Active metoprolol succinate (TOPROL XL) 25 mg Extended Release 24 hour tablet Take 25 mg by mouth daily. Active mirabegron (Myrbetriq) 50 mg Extended Release 24 hour tablet Take 50 mg by mouth daily. Active solifenacin (VESICARE) 5 mg Tablet Take 5 mg by mouth daily. Active tamsulosin (FLOMAX) 0.4 mg capsule Take 0.4 mg by mouth daily. Active tiZANidine (ZANAFLEX) 4 mg Capsule Take 4 mg by mouth daily at bedtime. Active buprenorphine-n aloxone (SUBOXONE) 2-0.5 mg Tablet, Sublingual Place 1 Tablet under tongue 2 times daily. Once dissolved, rinse mouth with water & swallow. Wait at least 1 hour before brushing teeth. 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 Dental impaction 10/06/2013 Encounters Date Type Department Care Team Description 02/09/2025 7:40 AM CDT - 02/09/2025 8:10 AM CDT Surgery [facility] Operating [facility] [address] [facility] [address] [place] [address] Aly Biswas MD DRUG INDUCED SLEEP ENDOSCOPY 02/09/2025 7:32 AM CDT Anesthesia Event [facility] Operating Room [address] [place] [address] Huber Rm CRNA 02/09/2025 6:53 AM CDT - 02/09/2025 8:12 AM CDT Hospital Encounter [facility] Pre Post [address] [place] [address] Aly Biswas MD MARLENE (obstructive sleep apnea) Discharge Disposition: Home or Self Care from Last 3 Months Social History Tobacco Use Types Packs/Day Years [...] on file 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 ESHAatterson 4-3-17. Rv Lead-01/22/2002 Implanted: 002 (Quantity not on file) Lead [employer] 5076-58 / [id number] / Description:This lead is par t of a Medtronic condtional pacemaker system. Stephane 4 Mri Condtitional Pacemaker-07/18/19 17 Implanted: 017 by Guicho Villar MD (Quantity not on file) Pacemaker [employer] ADVISA DR SHIRLEY [id number] / [id number] / Description:This is a MRI co ndtional pacemaker generator, Medtronic Rep must be present for all MRI scans. Stephane 07-30-16.[facility]: [facility] , fax: [phone] Dr Borja is patient's leather worker. Porcine Valve Replacement Valve Description:By Patient repor t and confirmed by Brittny at Dr Guicho Villar ([facility]) after review of medical records, this was placed in 2001. It is a biological tissue implant. Stephane 07-30-16. Aortic Valve Repair/Replacemen t-08/22/1982 Implanted: 983 (Quantity not on file) Valve Description:Patient had aort ic repair procedure following crush injury to chest here at [facility]. No records remain regarding surgery or possible implants used and patient does not have any information regarding implants from this procedure. Per Dr eHnri Mahmood, Chest Xray will be obtained prior to MRI scans to ensure no metallic implants are present, other than MRI conditonal pacemaker. Stephane 4 Procedures Procedure Name Priority Date/Time Associated Diagnosis Comments [place] DISE DYN EVAL SLEEP DISORDERED BREATHING FLX DX 02/09/2025 7:40 AM CDT MARLENE (obstructive sleep apnea) from Last 3 Months Insurance [place] M[place] Advance Directives For more information, please contact: [phone] * Full Code (Latest Code Status on File) Date Activated Date Inactivated Comments 02/09/2025 6:57 AM 02/09/2025 10:12 AM Care Teams Trolley Car Operator Relationship Specialty Start Date End Date Gen Suresh MD [address] [place] [address] [place] [phone] PCP - General Family Practice 08/02/16
--- OUTSIDE RECORDS SUMMARY | 2025-02-13 03:54 | XMS_ITS | Encounter Summary ---
Author Organization [facility] Address [address] [place] [address] Care Team Providers Care Professor Of Literature Name Role Phone Gen Suresh MD Primary Care Provider [phone] Reason for Referral * Outpatient Services (Routine) - Closed Specialty Diagnoses / Procedures Referred By Contfrances lozano Referred To Contact Diagnoses Spinal stenosis of cervical region Procedures MRI CERVICAL WO CONTRAST Bill Delong MD Phone: tel: fax: [facility] Pre-Registration [place] CALL TO MAKE APPOINTMENT ONLY [address] [place] [address] Phone: tel: fax: Referral ID Status Reason Start Date Expiration Date V isits Requested Visits Authorized [id number] Closed F [facility] TO SCHEDULE (SGF) 07/24/2016 08/23/2016 1 1 Encounter Details Date Type Department Care Team (Latest Contact Info) Description 07/25/[address] 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 [id number] Narrative Procedure Note Jose Stephenson MD - [...] to specific findings above for further details. [id number] us Bill Delong MD MR ORDERABLES Final Re sult documented in this encounter Visit Diagnoses Diagnosis Spinal stenosis of cervical region Spinal stenosis in cervical region Spinal stenosis of cervical region Spinal stenosis in cervical region documented in this encounter Care Teams Professor Of Literature Relationship Specialty Start Date End Date Gen Suresh MD [address] [place] [address] [place] [address] PCP - General Family Practice 08/02/16 documented as of this encounter
--- OUTSIDE RECORDS SUMMARY | 2025-02-13 03:54 | XMS_ITS | Encounter Summary ---
Author Organization [facility] Address [address] [place] [address] Care Team Providers Care Dip Lube Operator Name Role Phone Gen Suresh MD Primary Care Provider [phone] Encounter Details Date Type Department Care Team (Late st Contact Info) Description 10/06/2013 Ancillary Orders [facility] Oral and Maxillo Surgery[address] [place] [address] Manny Austin Jr., DMD NO ADDRESS ON FILE Unspecified dental caries (Primary Dx) Social History Tobacco Use Types Packs/Day Years Used Date Smoking Tobacco: Never Alcohol Use Standard Drinks/Week Comments No 0 (1 standard drink = 0.6 oz pur e alcohol) Sex and Gender Information Value Date Recorded Sex Assigned at Not on file 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
--- OUTSIDE RECORDS SUMMARY | 2025-02-13 03:54 | XMS_ITS | Clinical Summary ---
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 ESHAatterson 07-30-16 Ra Lead-01/22/2002 Implanted: 002 (Quantity not on file) Lead [employer] 5076-52 / [id number] / Description:This lead is par t of a MRI condtional pacemaker system.. Stephane 07-30-16. Mri Condtitional Pacemaker-07/18/19 17 Implanted: 017 by Guicho Villar MD (Quantity not on file) Pacemaker [employer] ADVISA DR SHIRLEY [id number] / [id number] / Description:This is a MRI co ndtional pacemaker generator, Medtronic Rep must be present for all MRI scans. Stephane 07-30-16. [facility]: [facility] , fax: [phone] Dr Borja is patient's folding machine setter. Porcine Valve Replacement Valve Description:By Patient sharon lozano and confirmed by rBittny at Dr Guicho Villar ([facility]) after review of medical records, this was placed in 2001. It is a biological tissue implant. ESHAatterson 07-30-16. Aortic Valve Repair/Replacemen t-08/22/1982 Implanted: 983 (Quantity not on file) Valve Description:Patient had aort ic repair procedure following crush injury to chest here at [facility]. No records remain regarding surgery or possible implants used and patient does not have any information regarding implants from this procedure. Per Dr Henri Mahmood, Chest Xray will be obtained prior to MRI scans to ensure no metallic implants are present, other than MRI conditonal pacemaker. ESHAatterson 07-30-16 Insurance [place] [facility] P[place] MCR Care Teams Public Health Aides Teacher Relationship Specialty Start Date End Date Gen Suresh MD [address] [place] [address] [place] [address] PCP - General Family Practice 08/02/16
--- OUTSIDE RECORDS SUMMARY | 2025-02-13 03:54 | XMS_ITS | Encounter Summary ---
Author Organization [facility] Address [address] [place] [address] Care Team Providers Care Gas Dispatcher Name Role Phone Gen Suresh MD Primary Care Provider [phone] Encounter Details Date Type Department Care Team (Latest Contact Info) Description 07/31/2016 Ancillary Orders [facility] Pre-Registration [place] CALL TO MAKE APPOINTMENT ONLY [address] [place] [address] Bill Delong MD [address] [place] [address] Spinal stenosis, cervical region Social History Tobacco Use Types Packs/Day Years Used Date Smoking Tobacco: Never Alcohol Use Standard Drinks/Week Comments No 0 (1 standard drink = 0.6 oz pur e alcohol) Sex and Gender Information Value Date Recorded Sex Assigned at Not on file 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
--- OUTSIDE RECORDS SUMMARY | 2025-02-13 03:54 | XMS_ITS | Patient Health Record ---
Author Organization [facility] Address [address] [place] [address] Care Team Providers Care Sock Liner Name Role Phone Moe Woo Primary Care Provider [phone] Aldo Rincon Unavailable [phone] Nydia Olsen Unavailable Allergies Allergen (clinical drug ingredient) Drug/Non Drug Allergy documented on EMR Reaction Allergy Type Onset Date Status erythromycin Erythromycin Base Unknown Drug Allergy Active Influenza Virus Vaccine Live Unknown Drug Allergy Active naproxen Naproxen Unknown Drug Allergy Active isotretinoin Isotretinoin Unknown Drug Allergy A ctive nefazodone Nefazodone Unknown Drug Allergy Activ e Penicillin Unknown Drug Allergy Active Results Component Value Reference Range Flag Notes Reticulocyte Panel 00868, 85 046 (Not yet reviewed by provider) Interpretation: Performing Lab: Notes/Report: Diagnosis Description: Other fatigue IRF 11.3 9.3-17.4 % Ret-Hgb 32.3 36.0-38.6 pg LOW Ret-Abs .05 .00-.12 /UL Ret % 1.5 .5-1.5 % % Iron Saturation (Fe & TIBC )--04959,64874 (Not yet reviewed by provider) Interpretation: Performing Lab: Notes/Report: Diagnosis Description: Other fatigue Iron 93 65-175 MCG/DL Per Iron as say instruction for Use(IFU), patients treated with metal-binding drugs (e.g.deferoxamine) may have depressed iron values as chelated iron may not properly react in the iron assay. Testing was performed with this assay method. TIBC 272 250-450 NG/DL % Iron Saturation 34 20-50 % [facility] Micro-Auto, [place] - [address] Reviewed date:03/17/2024 09:48:28 AM Interpretation: Performing Lab: Notes/Report: Glucose - Bili - Ketones - Sp [place] 1.015 Blood - pH 5.5 Protein +- Urobili - Nitrites - Leukocytes - Mammogram Digital Breast Brandt osynthesis, unilateral [place] - [address] Reviewed date:10/07/2024 03:58:30 PM Interpretation: Performing Lab: Notes/Report: PSA Diagnostic--20426 Reviewed date:04/27/2024 11:56:52 AM Interpretation: Performing Lab: Notes/Report: Diagnosis Description: Encounter for screening for malignant neoplasm of prostate PSA .31 .00-4.00 NG/ML PSA concen trations, regardless of the value, should not be interpreted as definitive evidence for the presence or absence of prostate cancer. Vitamin B12 (B) 15654 (Not y et reviewed by provider) Interpretation: Performing Lab: Notes/Report: Diagnosis Description: Other fatigue AeqyxamC97 581 211-911 pg/mL Shoulder Min 3V Right-44018 Reviewed date:02/02/2025 09:47:37 AM Interpretation: Performing Lab: Notes/Report: Humerus Min 2V Right-70753 Reviewed date:02/02/2025 09:48:08 AM Interpretation: Performing Lab: Notes/Report: Elbow Ap/Lat Right-85384 Reviewed date:02/02/2025 09:49:02 AM Interpretation: Performing Lab: Notes/Report: Thyroid Stimulating Hormone (TSH) 08926 (Not yet reviewed by provider) Interpretation: Performing Lab: Notes/Report: Diagnosis Description: Other fatigue TSH 5.850 .358-3.740 MlU/ML HI Sedimentation Rate 40758 (No t yet reviewed by provider) Interpretation: Performing Lab: Notes/Report: Diagnosis Description: Other fatigue Sed Rate 6 0-20 MM/HR Comprehensive Metabolic Pane l (CMP) 05526 (Not yet reviewed by provider) Interpretation: Performing Lab: Notes/Report: Diagnosis Description: Other fatigue Glucose Serum 95 71-110 MG/DL Testing p erformed at [facility], [address] [place] [address] SHEILA Smith [address]. CLIA ID#: [id number] BUN 11 7-21 MG/DL Creat 1.22 .57-1.17 MG/DL HI S-ysqyzb-u-benzoquinone imine (NAPQI) is a metabolite of acetaminophen, NAPQI concentrations of apparoximately 10 mg/L correlation to toxic levels of acetaminophen demonstrates a greater than or equil to 10% change in results. NAPQI concentrations greater than this may lead to falsely depressed results for patient samples. Use of this assay is not recommended for patients undergoing treatment with phenindione, due to the potential for falsely depressed results. GFR 67.2 NA Calculation pe rformed from GFR calculator provided by the [employer]. Glomerular Filtration rate(GRF) is the best overall index of kidney function. Normal GFR varies according to age,sex, body size, and declines with age. The National [employer] recommends using the CKD-EPI Creatinine Equation(2020) to estimate GFR. BUN/Creat Ratio 9.0 12.0-20.0 % LOW Total Protein 7.2 5.8-8.0 G/DL Albumin 4.4 3.2-4.8 G/DL Globulin 2.8 2.3-3.5 G/DL Alb/Glob 1.6 0.8-2.2 Calcium 9.5 8.7-10.4 MG/DL Sodium 138 136-145 MMOL/L Potassium 4.1 3.5-5.1 MMOL/L Chloride 103 98-107 MMOL/L CO2 22.4 20.0-31.0 MMOL/L Anion Gap 17 5-15 HI Alk Phos 266 46-116 HI Bili Total 1.6 .3-1.2 MG/DL HI Use of this assay is not recommended for patients undergoing treatment with eltrombopag due to the potential for falsely elevated results. AST/SGOT 34 15-37 UNIT/L ALT/SGPT 33 12-78 UNIT/L Osmo Serum,Calculated 285 280-300 MOSM/KG CBC w\ Auto Diff 08219 (Not yet reviewed by provider) Interpretation: Performing Lab: Notes/Report: Diagnosis Description: Other fatigue WBC 7.7 4.5-11.0 X10'3 RBC 3.65 4.50-5.90 X10'6 LOW Hgb 11.4 13.5-17.5 G/DL LOW Hct 36.5 41.0-53.0 % LOW MCV 100.0 80.0-100.0 FL MCH 31.2 27.0-31.0 PG HI MCHC 31.2 31.0-37.0 G/DL Platelet 105 150-400 X10'3 LOW RDW-SD 53.7 35.0-49.0 FL HI RDW-CV 14.7 12.2-15.6 % MPV 12.9 9.2-12.0 FL HI Neutro Auto% 60.9 40.0-70.0 % Lymph Auto% 22.7 22.0-44.0 % Calloway Auto% 8.7 3.0-7.0 % HI Eos Auto% 2.5 2.0-4.0 % Baso Auto% 1.0 0.0-1.0 % Imm Gran% 4.2 .0-.4 % HI Neutro Abs 4.67 .80-7.70 Absolute Neutrophil Count 4670 NA Lymph Abs 1.74 .10-4.10 [place]alloway Abs .67 .20-1.00 Eos Abs .19 .00-.40 Baso Abs .08 .00-.20 Imm Gran Abs .32 .00-.10 HI NRBC# .00 .00-.20 NRBC% .00 .00-.20 /100 int act WBC's UA Without Micro-[place], [place] - [address] Reviewed date:12/23/2024 02:35:03 PM Interpretation: Performing Lab: Notes/Report: Glucose 0 Bili 1+ Ketones 0 Sp [place] 1.025 Blood 0 pH 6.0 Protein 0 Urobili 0 Nitrites 0 Leukocytes 0 US Breast Right Limited-7664 2 Reviewed date:10/19/2024 04:22:12 PM Interpretation: Performing Lab: Notes/Report: [facility], [place] - [address] Reviewed date:06/25/2024 10:28:55 AM Interpretation: Performing Lab: Notes/Report: Glucose 0 Bili 0 Ketones 0 Sp [place] 1.005 Blood 0 pH 6.0 Protein 0 Urobili 0 Nitrites 0 Leukocytes 0 [facility]A [facility] Micro-Auto, [facility] [place] - [address] Reviewed date:04/23/2024 10:30:04 AM Interpretation: Performing Lab: Notes/Report: Glucose - Bili - Ketones - Sp [place] 1.020 Blood - pH 6.0 Protein +- Urobili - Nitrites - Leukocytes - Reason For Referral Reason Referring to Dr Kizzy Lockwood at [facility] for IPP. Thank you! Diagnosis 1 Erectile disorder (N 52.9) Referral Organization [facility] Referring Provider First Name Aldo Referring Provider Last Name Mckenzie Referring Provider Speciality Urology Referral Priority Routine Reason chronic pain Diagnosis 1 Chronic pain syndrom e (G89.4) Referring Provider First Name Tyler alicia Referring Provider Last Name Chilo Referring Provider Speciality Internal M edicine Referred Organization [facility] Referred Provider Damian Lopez Referred Address [address] [place] [address],[facility],[address], General Notes Ankita George 01/07 09:25:07 AM CDT > atc lvmSudhirLeslie jo 01/07/2025 09:34:35 AM CDT > Patient called and got scheduled for [facility] appt. Sent ppwk. , Sent thank you letter Referral Priority Routine Reason chronic pain Diagnosis 1 Chronic pain syndrom e (G89.4) Referral Organization [facility] Referring Provider First Name [...] Duration) Notes Start Date End Date Status Vitamin B Complex - Capsule as directed Orally Not-Takin g Citalopram Hydrobromide 40 mg Tablet TAKE ONE TABLET BY MOUTH At Bedtime; Duration: 30 Active Belsomra 20 MG Tablet 1/2 tablet at bedt catie as needed Orally Once a day; Duration: 30 days 09/22/2024 02/19/2025 Active Vitamin C 500 MG Capsule as directed Orally Not-Taking Myrbetriq 50 MG Tablet Extended Release 24 Hour 1 tablet Orally Once a day; Duration: 90 days 12/23/2024 Active Myrbetriq 50 mg Tablet Extended Release 24 Hour TAKE ONE TABLET BY MOUTH ONCE DAILY; Duration: 30 Not-Taking Solifenacin Succinate 5 MG Tablet 1 tablet Orally Once a day; Duration: 90 days 12/23/2024 Active predniSONE 20 MG Tablet 1 tablet with fo od or milk Orally Once a day; Duration: 7 days 12/09/2024 Not-Taking Buprenorphine HCl-Naloxone HCl 2-0.5 MG Tablet Sublingual 1 Sublingual bid; Duration: 30 days 01/04/2025 05/04/2025 Active Solifenacin Succinate 5 mg Tablet TAKE ONE TABLET BY MOUTH EVERY DAY; Duration: 30 Not-Taking Magnesium Oxide 400 MG Tablet 1 tablet with food Orally Once a day 01/21/2025 Active tiZANidine HCl 4 MG Capsule 1 capsule at bedtime as needed Orally daily; Duration: 30 days 01/04/2025 Active HYDROcodone-Acetaminophen 10-325 MG Tablet 1 tablet as needed Orally every 6 hrs Not-Taking Nystatin 342259 UNIT/GM Cream 1 application Externally Twice a day to both feet 01/21/2025 Active Ibuprofen 600 MG Tablet 1 tablet with fo od or milk as needed Orally Three times a day Not-Taking Linezolid 600 MG Tablet 1 tablet Orally twice a day 01/21/2025 Active Furosemide 20 MG Tablet 1 tablet Orally daily; Duration: 30 days As needed Active MgO 400 (240 Mg) MG Tablet 1 tablet with food Orally Once a day Active Levothyroxine Sodium 25 mcg Tablet TAKE ONE TABLET BY MOUTH EVERY MORNING ON a EMPTY stomach; Duration: 30 Active Metoprolol Succinate ER 25 MG Tablet Extended Release 24 Hour 1 tablet Orally Once a day Active Carisoprodol 350 MG Tablet 1 tablet as needed Orally Four times a day Not-Taking Tamsulosin HCl 0.4 mg Capsule TAKE ONE CAPSULE BY MOUTH TWICE DAILY; Duration: 30 Active Ondansetron 4 MG Tablet Disintegrating 1 tablet on the tongue and allow to dissolve Orally Once a day Not-Taking ARIPiprazole 5 mg Tablet TAKE ONE TABLET BY MOUTH EVERY DAY; Duration: 28 Active Social History Tobacco Use: Social History [...] W/U Status Risk Notes Problem Primary insomnia (0563958) Primary insomnia (F51.01) Active confirmed Problem Chronic pain syndrome (747384284) Chronic pain syndrome (G89.4) Active confirmed Problem Fatigue (53046416) Other fatigue (R53.83) Active confirmed Problem Hematoma (17311604) Hematoma (T14.8XXA) Active confirmed Problem Anemia (526411062) Anemia, unspecified type (D64.9) Active confirmed Problem Urinary frequency (191527903) Urinary frequency (R35.0) Active confirmed Problem Edema (535337100) Lower extremity edema (R60.0) Active confirmed Problem Urgent desire to urinate (35603664) Urinary urgency (R39.15) Active confirmed Problem Cellulitis of lower limb (248873018) Cellulitis of left lower extremity (L03.116) Active confirmed Problem 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) ED (erectile dysfunction) of organic origin (N52.9) Active confirmed Problem Breast lump (69759097) Breast mass in male (N63.0) Active confirmed Problem 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 (B88.0) Active confirmed Problem Cardiac pacemaker in situ (897589263) Pacemaker (Z95.0) Active confirmed Problem Shoulder joint pain (839722150) Acute pain of right shoulder (M25.511) Active confirmed Problem Benign prostatic hypertrophy with outflow obstruction (811087192) BPH loc w urin obs/LUTS (N40.1) Active confirmed Problem Bursitis of shoulder (064491309) Subscapular bursitis (M75.50) Active confirmed Problem Primary hypertension (81011519) Primary hypertension (I10) Active confirmed Problem Erectile dysfunction (disorder) (748680164) Erectile disorder (N52.9) Active confirmed Vital Signs Heart Rate 83 /min 02/01/2025 Temperature 98.1 degrees Fahrenheit 02/01/2025 Respiratory Rate 17 /min 01/05/2025 Oximetry 95 % 02/01/2025 Blood pressure diastolic 78 mm Hg 02/01/2025 Height-cm 180.34 cm 02/01/2025 Weight-kg 88 kg 02/01/2025 Height 71 in 02/01/2025 Blood pressure systolic 120 mm Hg 02/01/2025 Weight 194 lbs 02/01/2025 BMI 27.05 kg/m2 02/01/2025 Procedures Procedure Date Ordered Date Performed Result Body Sit e PVR (Post Void Residual) 03/17/2024 03/17/2024 N/A PVR (Post Void Residual) 12/23/2024 12/23/2024 N/A Encounters Encounter Location Date Provider Diagnosis [facility] [address] [place] [address] [place] [address] 03/17/2024 Aldo Rincon Erectile disorder N52.9 ; BPH loc w urin obs/LUTS N40.1 and Prostate cancer screening Z12.5 [facility] [address] [place] [address], [place] [address] 04/06/2024 Moe Woo Cellulitis of pretibial region L03.119 [facility] [address] [place] [address], [place] [address] 04/20/2024 Moe Woo Screening for prostate cancer Z12.5 [facility] [address] [place] [address] [place] [address] 04/23/2024 Aldo Rincon BPH loc w urin obs/LUTS N40.1 [facility] [address] [place] [address], [place] [address] 05/26/2024 Moe Woo Acute contact dermatitis L25.9 and Primary hypertension I10 [facility] [address] [place] [address] [place] [address] 06/25/2024 Nydia Olsen Urinary frequency R35.0 ; BPH loc w urin obs/LUTS N40.1 and Erectile dysfunction N52.9 [facility] [address] [place] [address], [place] [address] 09/10/2024 Moe Woo Hematoma T14.8XXA and Breast mass in male N63.0 [facility] [place] 11/04/2024 Moe Woo Primary hypertension I10 and BPH loc w urin obs/LUTS N40.1 [facility] [address] [place] [address] 11/16/2024 Moe Woo Lower extremity edema R60.0 ; Primary hypertension I10 and Depression screen Z13.31 [facility] [address] [address] 12/09/2024 Moe Woo Cellulitis of left lower extremity L03.116 [facility] [address] [place] [address] 12/16/2024 Moe Woo Lower extremity edema R60.0 [facility] [address] [place] [address] [address] [place] [address] 12/23/2024 Nydia Olsen BPH loc w urin obs/LUTS N40.1 ; Erectile disorder N52.9 ; Urinary frequency R35.0 and Urinary urgency R39.15 [facility] [address] [place] [address], [place] [address] 01/04/2025 Moe Woo Chronic pain syndrome G89.4 ; Primary hypertension I10 and ED (erectile dysfunction) of organic origin N52.9 [facility] [address] [place] [address] 01/05/2025 Moe Woo Encounter for Medicare annual wellness exam Z00.00 [facility] [address] [address] 01/12/2025 Moe Woo Cellulitis of pretibial region L03.119 [facility] [address] [place] [address] 01/21/2025 Moe Woo Chronic pain syndrome G89.4 ; Lower extremity edema R60.0 and Cellulitis of left lower extremity L03.116 [facility] [address] [place] [address], [place] [address] 02/01/2025 Moe Woo Other fatigue R53.83 and Acute pain of right shoulder M25.511 [facility] [address] [place] [address] 02/04/2025 Moe Woo Other fatigue R53.83 and Anemia, unspecified type D64.9 [facility] [address] [place] [address] [address] [place] [address] 04/20/2024 Aldo Carmonay Screening for prostate cancer Z12.5 [facility] [address] [place] [address] 05/04/2024 Moe Woo Primary insomnia F51.01 [facility] [address] [place] [address] 09/14/2024 Moe Woo Breast mass in male N63.0 [facility] [address] [place] [address] 09/22/2024 Moe Woo Primary insomnia F51.01 [facility] [place] 11/03/2024 Moe Woo Primary hypertension I10 and BPH loc w urin obs/LUTS N40.1 [facility] [place] 12/08/2024 Moe Woo Primary hypertension I10 and Primary insomnia F51.01 [facility] [address] [place] [address] 12/23/2024 Nydia Olsen Encounter for screening for malignant neoplasm of prostate Z12.5 [facility] [address] [address] 01/04/2025 Moe Woo Chronic pain syndrome G89.4 [facility] [place] 01/11/2025 Moe Woo Primary hypertension I10 and Chronic pain syndrome G89.4 [facility] [address] [address] 01/14/2025 Moe Woo [facility] [address] [address] 02/03/2025 Moe Woo [facility] [address] [address] 02/03/2025 Moe Woo Assessments Encounter Date Diagnosis (ICD Code) Assessment Notes Treatment Notes Treatment Clinical Notes Section Notes 03/17/2024 Erectile disorder (ICD-10 - N52.9) t 04/23/2024 BPH loc w urin obs/LUTS (ICD-10 - N40.1) 04/20/2024 Screening for prostate cancer (ICD-10 - Z12.5) 04/06/2024 Cellulitis of pretibial region (ICD-10 - L03.119) p 12/23/2024 BPH loc w urin obs/LUTS (ICD-10 - N40.1) 12/23/2024 Erectile disorder (ICD-10 - N52.9) 12/16/2024 Lower extremity edema (ICD-10 - R60.0) Cellulits is improving. 09/10/2024 Hematoma (ICD-10 - T14.8XXA) 09/10/2024 Breast mass in male (ICD-10 - N63.0) 05/26/2024 Acute contact dermatitis (ICD-10 - L25.9) 01/04/2025 Primary hypertension (ICD-10 - I10) 02/01/2025 Other fatigue (ICD-10 - R53.83) 02/01/2025 Acute pain of right shoulder (ICD-10 - M25.511) 05/04/2024 Primary insomnia (ICD-10 - F51.01) 04/20/2024 Screening for prostate cancer (ICD-10 - Z12.5) 06/25/2024 Urinary frequency (ICD-10 - R35.0) PLAN - PATIENT ADVISED FIGUEROA WAS HELPING SOME, HE WOULD LIKE TO CONTINUE THIS, HE HAS ENOUGH REFILLS, CURRENTLY. 01/12/2025 Cellulitis of pretibial region (ICD-10 - L03.119) 01/11/2025 Chronic pain syndrome (ICD-10 - G89.4) 01/11/2025 Primary hypertension (ICD-10 - I10) 01/04/2025 Chronic pain syndrome (ICD-10 - G89.4) 01/04/2025 Chronic pain syndrome (ICD-10 - G89.4) 11/16/2024 Primary hypertension (ICD-10 - I10) 12/08/2024 Primary insomnia (ICD-10 - F51.01) 12/08/2024 Primary hypertension (ICD-10 - I10) 12/09/2024 Cellulitis of left lower extremity (ICD-10 - L03.116) 12/23/2024 Encounter for screening for malignant neoplasm of prostate (ICD-10 - Z12.5) 01/05/2025 Encounter for Medicare annual wellness exam [...] problem list with appropriate and specific ICD-10's. 02/04/2025 Other fatigue (ICD-10 - R53.83) 02/04/2025 Anemia, unspecified type (ICD-10 - D64.9) 01/21/2025 Chronic pain syndrome (ICD-10 - G89.4) [...] COMPLETED TODAY, WILL BE COMPLETED NEXT VISIT 09/14/2024 Breast mass in male (ICD-10 - N63.0) 09/22/2024 Primary insomnia (ICD-10 - F51.01) 11/03/2024 BPH loc w urin obs/LUTS (ICD-10 [...] AFTER FAILING ALETHEA, PATIENT ALREADY HAD ONE 12/23/2024 Urinary frequency (ICD-10 - R35.0) 05/26/2024 Primary hypertension (ICD-10 - I10) 12/23/2024 [...] controlled with light dressing. Lab sent to [facility] via town clerk. 04/23/2024 Other ALETHEA appointment. If ALETHEA fails [...] 6 MONTHS WITH PSA UA PVR VINAYAK 02/04/2025 Other Venipuncture performed by Ana Tapia. Right arm/hand. One attempt. Pt tolerated well, bleeding controlled with light dressing. Lab sent to [facility] via town clerk. Plan Of Treatment Pending Test Test Name Order Date CBC w\ Auto Diff [id number] 02/01/2025 Comprehensive Metabolic Panel (CMP) 8005 3 02/01/2025 Sedimentation Rate 82844 02/01/2025 Thyroid Stimulating Hormone (TSH) 41600 02/01/2025 Vitamin B12 (B) 42253 02/04/2025 Reticulocyte Panel 40447, 80353 02/05/20 25 % Iron Saturation (Fe & TIBC)--83190,835 50 02/04/2025 Future Test Test Name Order Date PSA Diagnostic--[id number] 04/29/2025 Next Appt Details Provider Name:Damian Lopez, 03/31/2025 10:20:00 AM, [address] [place], [address], Provider Name:Nydia Aviles, 06/25/2025 11:10:00 AM, [address] , [address], [address], Insurance Providers Payer Name Payer Address Payer Phone Subscriber Number Group Number Insured Name Patient Relationship to Insured Coverage Start Date Coverage End Date [employer] Medicare Replacement [address] [address] [place] [address] [id number] Benjamin Walker Self - patient is the insured [place] Medicaid [address] [place] [address] [id number] Benjamin Walker Self - patient is the insured [place] Medicare [address] [place] [address] [id number] Benjamin Walker Self - patient is the [...] tract infection N39.0 Surgical History Surgery Date(Month/Year) penile implant at [facility] Vasectomy pacemaker rotator cuff surgery
[2025-02-13 03:56] VITALS: BP 125/89; PULSE 104; RESP 16; TEMP 36.6; O2SAT 97; BMI 29.0
--- NOTE | 2025-02-13 04:01 | W.ED.NAVMDI ---
Documented by User: Brock Bruce MD 02/13/25 04:03 HPI - Nausea/Vomiting/Diarrhea General: Chief complaint: Nausea/Vomiting/Diarrhea Stated complaint: ABD PAIN Time Seen by Provider: 02/13/25 03:48 Source: patient and EMS Mode of arrival: EMS Limitations: no limitations History of Present Illness: 59-year-old male states he been having nausea over the last 4 hours. States that he feels like he has food poisoning states he has been retching having abdominal cramping. He denies any worsening proving factors. He states that abdominal cramping he rates a 4 out of 10 has had some general malaise denies any diarrhea Associated nausea: Yes Associated symtoms: Reports nausea Related Data Home Medications ?Medication ?Instructions ?Recorded ?Confirmed hydrocodone 10 mg-acetaminophen 1 tab PO Q4H PRN Pain 07/30/19 01/13/25 325 mg tablet buprenorphine 2 mg-naloxone 0.5 mg 1 tab sublingual BID 01/13/25 01/13/25 sublingual tablet doxycycline hyclate 100 mg tablet 100 mg PO BID x10d 01/13/25 01/13/25 levothyroxine 25 mcg tablet 25 mcg PO QAM 01/13/25 01/13/25 magnesium oxide 400 mg PO DAILY 01/13/25 01/13/25 metoprolol succinate 25 mg 25 mg PO DAILY 01/13/25 01/13/25 tablet,extended release 24 hr mirabegron 50 mg tablet,extended 50 mg PO DAILY 01/13/25 01/13/25 release 24 hr (Myrbetriq) tizanidine 4 mg tablet 4 mg PO BEDTIME 01/13/25 01/13/25 Previous Rx's ?Medication ?Instructions ?Recorded aripiprazole 5 mg tablet (Abilify) 5 mg PO DAILY #90 tabs 07/26/21 citalopram 40 mg tablet 40 mg PO BEDTIME #90 tabs 10/02/21 solifenacin 5 mg tablet (Vesicare) 5 mg PO DAILY #30 tabs 05/10/22 Held on 01/14/25. Instructions: Resume on 01/16/25. tamsulosin 0.4 mg capsule 0.4 mg PO BID #60 caps 05/10/22 furosemide 20 mg tablet 20 mg PO DAILY PRN Edema #1 tab 01/14/25 linezolid 600 mg tablet 600 mg PO BID #14 tabs 01/14/25 suvorexant 20 mg tablet (Belsomra) 10 mg (1/2 x 20 mg) PO BEDTIME PRN 01/14/25 Sleep #1 tab ondansetron 8 mg disintegrating 8 mg PO Q6H #14 tabs 02/13/25 tablet Allergies Allergy/AdvReac Type Severity Reaction Status Date / Time isotretinoin (From Accutane) Allergy Severe ALGY-Swell Verified 02/13/25 03:58 Lip/Tongue/Throat Penicillins Allergy Severe ALGY-Anaphy Verified 02/13/25 03:58 laxis naproxen Allergy Intermediate ALGY-Rash Verified 02/13/25 03:58 nefazodone (From Serzone) Allergy Intermediate ADR/ALGY-Fl Verified 02/13/25 03:58 ushing influenza virus vaccine, Allergy Mild ADR-Vomitin Verified 02/13/25 03:58 specific g erythromycin base AdvReac Mild ADR-Vomitin Verified 02/13/25 03:58 g milk AdvReac Mild ADR-Dry Verified 02/13/25 03:58 Mucus Membranes eggs Allergy Mild ADR-Nausea Uncoded 01/27/25 03:52 Review of Systems GI: Reports: nausea and vomiting PFSH ED PFSH: Medical History (Updated 02/13/25 @ 07:53 by Loreto Bishop MD) Tricuspid valve regurgitation Atrial flutter by electrocardiogram Restless legs syndrome Insomnia, unspecified Acute meniscal tear of left knee Lower urinary tract symptoms Erectile dysfunction OAB (overactive bladder) Pacemaker Hypothyroidism, unspecified Surgical History S/P tricuspid valve replacement H/O arthroscopy of left knee S/P appendectomy History of heart valve repair History of tonsillectomy History of shoulder surgery Hx of decompressive lumbar laminectomy History of nasal septoplasty History of vasectomy History of esophagogastroduodenoscopy (EGD) Family History Mother , at age 80 Tick fever Dementia Father , at age 87 Heart disease Congestive heart failure (CHF) Stroke Family/Other Cancer Other Diabetes Denies family history of CAD (coronary artery disease) Clotting disorder Chronic kidney disease (CKD) Suicide Anesthesia complication Bleeding disorder Lung disease Social History Smoking and tobacco/nicotine status: never used tobacco/nicotine Alcohol intake: current Alcohol intake frequency: holidays/special occasions only Substance/Drug Use: never Adopted: No Caregiver/support person: No Lives independently: Yes Housing: House Marital status: Number of children: 1 Current occupational status: disabled Current gender identity: Male Physical Exam Const: COMMON NORMALS: no acute distress, patient oriented x3 and healthy appearing HENMT: COMMON NORMALS: normocephalic and atraumatic HEAD & SCALP: normocephalic and atraumatic Neck/C-Spine: COMMON NORMALS: full ROM and supple Chest: COMMONS NORMALS: normal inspection of the chest Resp: COMMON NORMALS: normal respiratory effort, No retractions, No use of accessory muscles and clear to auscultation bilaterally AUSCULTATION: clear to auscultation bilaterally Cardio: COMMON NORMALS: regular rate, regular rhythm and No murmurs present (Cardio) RATE: regular rate RHYTHM: regular rhythm GI: COMMON NORMALS: Normal to inspection, nondistended, normoactive bowel sounds present, Soft to palpation, non-tender and no masses PALPATION: Yes Soft to palpation Extremity: COMMON NORMALS: normal to inspection and full ROM Neuro: COMMON NORMALS: patient oriented x3, moves all extremities and no focal motor deficits Psych: COMMON NORMALS: mental status grossly normal, Normal thought process present and cooperative THOUGHT PROCESS: Normal thought process present Skin: COMMON NORMALS: no rashes or lesions noted and no wounds GENERAL SKIN EXAM: no rashes or lesions noted Course Vital Signs: Vital signs: Vital Signs Temperature 97.8 F 02/13/25 03:56 Pulse Rate 72 02/13/25 08:04 Respiratory Rate 16 02/13/25 03:56 Blood Pressure 121/54 02/13/25 08:04 Pulse Oximetry 94 02/13/25 08:04 Oxygen Delivery Me thod Room Air 02/13/25 06:29 MDM - Nausea/Vomiting/Diarrhea Lab Data 02/13/25 04:37 02/13/25 04:37 Radiology Impressions Abdomen/Pelvis CT 02/13/25 05:25 IMPRESSION: 1. Multiple gallstones without evidence of cholecystistis. 2. Cirrhotic appearing liver. 3. Hepatosplenomegaly Gallbladder Ultrasound 02/13/25 05:25 IMPRESSION: 1. Cholelithiasis. 2. Mild hepatomegaly. 3. Hepatic steatosis. Laboratory Results WBC 8.83 10^3/uL (3.29-11.43) 02/13/25 04:37 RBC 3.76 10^6/uL (3.85-5.65) L 02/13/25 04:37 Hgb 11.80 g/dL (11.27-16.99) 02/13/25 04:37 Hct 35.1 % (37-53) L 02/13/25 04:37 MCV 93.4 fl (82-101) 02/13/25 04:37 MCH 31.4 pg (27-33) 02/13/25 04:37 MCHC 33.6 g/dL (30-55) 02/13/25 04:37 RDW 15.8 % (12.1-15.1) H 02/13/25 04:37 Plt Count 180 10^3/cmm (157-399) 02/13/25 04:37 MPV 9.6 fL (7.4-10.4) 02/13/25 04:37 Neut % (Auto) 70.1 % 02/13/25 04:37 Lymph % (Auto) 18.6 % 02/13/25 04:37 [place] % (Auto) 8.8 % 02/13/25 04:37 Eos % (Auto) 0.7 % 02/13/25 04:37 Baso % (Auto) 1.1 % 02/13/25 04:37 Neut # (Auto) 6.19 10^3/uL (1.8-7.7) 02/13/25 04:37 Lymph # (Auto) 1.6 10^3/uL (0.8-4.8) 02/13/25 04:37 [place] # (Auto) 0.8 10^3/uL (0.2-0.9) 02/13/25 04:37 Eos # (Auto) 0.1 10^3/uL (0.0-0.8) 02/13/25 04:37 Baso # (Auto) 0.1 10^3/uL (0.0-0.1) 02/13/25 04:37 Nucleated RBC % (auto) 0 % 02/13/25 04:37 Nucleated RBCs # 0.0 /100WBC 02/13/25 04:37 Sodium 136 mmol/L (136-145) 02/13/25 04:37 Potassium 3.1 mmol/L (3.5-5.1) L 02/13/25 04:37 Chloride 99 mmol/L (98-107) 02/13/25 04:37 Carbon Dioxide 18 mmol/L (22-29) L 02/13/25 04:37 Anion Gap 22.1 (5-19) H 02/13/25 04:37 BUN 11 mg/dL (8-23) 02/13/25 04:37 Creatinine 1.3 mg/dL (0.7-1.2) H 02/13/25 04:37 GFR Calculation 56.3 mL/min (90-130) L 02/13/25 04:37 Glucose 106 mg/dL (65-115) 02/13/25 04:37 Calculated Osmolality 282 mOsm/kg (285-295) L 02/13/25 04:37 Calcium 9.8 mg/dL (8.5-10.5) 02/13/25 04:37 Total Bilirubin 2.8 mg/dL (0.15-1.2) H 02/13/25 04:37 AST 119 U/L (0-40) H 02/13/25 04:37 ALT 49 U/L (0-41) H 02/13/25 04:37 Alkaline Phosphatase 285 U/L (40-130) H 02/13/25 04:37 Total Protein 7.5 g/dL (6.6-8.7) 02/13/25 04:37 Albumin 4.7 g/dL (3.5-5.2) 02/13/25 04:37 Globulin 2.8 g/dL (1.3-4.6) 02/13/25 04:37 Lipase 31 U/L (13-60) 02/13/25 04:37 Hepatitis A IgM Ab Non-reactive (Nonreactive) 02/13/25 04:37 Hep Bs Antigen Non-reactive (Nonreactive) 02/13/25 04:37 Hep B Core IgM Ab Non-reactive (Nonreactive) 10/18/25 04:37 Hepatitis C Antibody Non-reactive (Nonreactive) 02/13/25 04:37 Discharge Plan Discharge Patient Disposition: Home Clinical Impression: Gastroenteritis, Cholelithiasis, Fatty liver Condition: Stable Prescriptions: New ondansetron 8 mg tablet,disintegrating 8 mg PO Q6H Qty: 14 0RF Rx Instructions: Take 1/2-1 tab every 6 hours as needed for nausea and vomiting No Action hydrocodone-acetaminophen 10-325 mg tablet 1 tab PO Q4H PRN (Reason: Pain) tamsulosin 0.4 mg capsule 0.4 mg PO BID Qty: 60 12RF solifenacin [Vesicare] 5 mg tablet 5 mg PO DAILY Qty: 30 12RF aripiprazole [Abilify] 5 mg tablet 5 mg PO DAILY Qty: 90 3RF citalopram 40 mg tablet 40 mg PO BEDTIME Qty: 90 3RF tizanidine 4 mg tablet 4 mg PO BEDTIME levothyroxine 25 mcg tablet 25 mcg PO QAM doxycycline hyclate 100 mg tablet 100 mg PO BID buprenorphine-naloxone 2-0.5 mg tablet, sublingual 1 tab SUBLINGUAL BID mirabegron [Myrbetriq] 50 mg tablet extended release 24 hr 50 mg PO DAILY magnesium oxide 400 mg magnesium Tablet 400 mg PO DAILY metoprolol succinate 25 mg tablet extended release 24 hr 25 mg PO DAILY linezolid 600 mg tablet 600 mg PO BID Qty: 14 0RF furosemide 20 mg tablet 20 mg PO DAILY PRN (Reason: Edema) Qty: 1 0RF Rx Instructions: instruction change to PRN only Belsomra 20 mg tablet 10 mg PO BEDTIME PRN (Reason: Sleep) Qty: 1 0RF Rx Instructions: dose change Discharge Orders: Discharge ED (Routine); Ordered 02/13/25 Ordered By: Loreto Bishop Referrals: Raymond Woo MD [Primary Care Provider, Internal Medicine] Discharge Diet: Advance as tolerated Patient Instructions: Gallstones (ED), Gastroenteritis (ED), Acute Nausea and Vomiting (ED), Non-Alcoholic Fatty Liver Disease (ED), Opioid Safety, Pain Management, Patient Portal & Enoc Instructions Activity Restrictions/Additional Instructions: There are concerns for fatty liver and possibly even early cirrhosis on imaging. You need to follow-up with your primary provider concerning this. You have gallstones in your gallbladder. They are not currently a problem but may be at some point. You also need to follow-up with your primary provider about this Thank you for choosing [facility] for your healthcare needs today. You have been screened and evaluated and felt safe for discharge. Health conditions do change or evolve sometimes and as such it is important that you follow up with your Primary Doctor to be re checked, 3-5 days is a general good time frame for follow up. You are always welcome to return to the ED for re assessment if your symptoms are worsening or you have new concerns Print Language: Indonesian Coding Level of Care Code ED Manager Social for Chg Fwd Documented by User: Loreto Bishop MD 02/13/25 08:37 HPI - Nausea/Vomiting/Diarrhea General: Chief complaint: Nausea/Vomiting/Diarrhea Stated complaint: ABD PAIN Time Seen by Provider: 02/13/25 03:48 Related Data Home Medications ?Medication ?Instructions ?Recorded ?Confirmed hydrocodone 10 mg-acetaminophen 1 tab PO Q4H PRN Pain 07/30/19 01/13/25 325 mg tablet buprenorphine 2 mg-naloxone 0.5 mg 1 tab sublingual BID 01/13/25 01/13/25 sublingual tablet doxycycline hyclate 100 mg tablet 100 mg PO BID x10d 01/13/25 01/13/25 levothyroxine 25 mcg tablet 25 mcg PO QAM 01/13/25 01/13/25 magnesium oxide 400 mg PO DAILY 01/13/25 01/13/25 metoprolol succinate 25 mg 25 mg PO DAILY 01/13/25 01/13/25 tablet,extended release 24 hr mirabegron 50 mg tablet,extended 50 mg PO DAILY 01/13/25 01/13/25 release 24 hr (Myrbetriq) tizanidine 4 mg tablet 4 mg PO BEDTIME 01/13/25 01/13/25 Previous Rx's ?Medication ?Instructions ?Recorded aripiprazole 5 mg tablet (Abilify) 5 mg PO DAILY #90 tabs 07/26/21 citalopram 40 mg tablet 40 mg PO BEDTIME #90 tabs 10/02/21 solifenacin 5 mg tablet (Vesicare) 5 mg PO DAILY #30 tabs 05/10/22 Held on 01/14/25. Instructions: Resume on 01/16/25. tamsulosin 0.4 mg capsule 0.4 mg PO BID #60 caps 05/10/22 furosemide 20 mg tablet 20 mg PO DAILY PRN Edema #1 tab 01/14/25 linezolid 600 mg tablet 600 mg PO BID #14 tabs 01/14/25 suvorexant 20 mg tablet (Belsomra) 10 mg (1/2 x 20 mg) PO BEDTIME PRN 01/14/25 Sleep #1 tab ondansetron 8 mg disintegrating 8 mg PO Q6H #14 tabs 02/13/25 tablet Allergies Allergy/AdvReac Type Severity Reaction Status Date / Time isotretinoin (From Accutane) Allergy Severe ALGY-Swell Verified 02/13/25 03:58 Lip/Tongue/Throat Penicillins Allergy Severe ALGY-Anaphy Verified 02/13/25 03:58 laxis naproxen Allergy Intermediate ALGY-Rash Verified 02/13/25 03:58 nefazodone (From Serzone) Allergy Intermediate ADR/ALGY-Fl Verified 02/13/25 03:58 ushing influenza virus vaccine, Allergy Mild ADR-Vomitin Verified 02/13/25 03:58 specific g erythromycin base AdvReac Mild ADR-Vomitin Verified 02/13/25 03:58 g milk AdvReac Mild ADR-Dry Verified 02/13/25 03:58 Mucus Membranes eggs Allergy Mild ADR-Nausea Uncoded 01/27/25 03:52 PFSH ED PFSH: Medical History (Updated 02/13/25 @ 07:53 by Loreto Bishop MD) Tricuspid valve regurgitation Atrial flutter by electrocardiogram Restless legs syndrome Insomnia, unspecified Acute meniscal tear of left knee Lower urinary tract symptoms Erectile dysfunction OAB (overactive bladder) Pacemaker Hypothyroidism, unspecified Surgical History S/P tricuspid valve replacement H/O arthroscopy of left knee S/P appendectomy History of heart valve repair History of tonsillectomy History of shoulder surgery Hx of decompressive lumbar laminectomy History of nasal septoplasty History of vasectomy History of esophagogastroduodenoscopy (EGD) Family History Mother , at age 80 Tick fever Dementia Father , at age 87 Heart disease Congestive heart failure (CHF) Stroke Family/Other Cancer Other Diabetes Denies family history of CAD (coronary artery disease) Clotting disorder Chronic kidney disease (CKD) Suicide Anesthesia complication Bleeding disorder Lung disease Social History Smoking and tobacco/nicotine status: never used tobacco/nicotine Alcohol intake: current Alcohol intake frequency: holidays/special occasions only Substance/Drug Use: never Adopted: No Caregiver/support person: No Lives independently: Yes Housing: House Marital status: Number of children: 1 Current occupational status: disabled Current gender identity: Male Course Vital Signs: Vital signs: Vital Signs Temperature 97.8 F 02/13/25 03:56 Pulse Rate 72 02/13/25 08:04 Respiratory Rate 16 02/13/25 03:56 Blood Pressure 121/54 02/13/25 08:04 Pulse Oximetry 94 02/13/25 08:04 Oxygen Delivery Me thod Room Air 02/13/25 06:29 MDM - Nausea/Vomiting/Diarrhea Medical Decision Making Medical decision making: Differential diagnosis for this patient with nausea and vomiting including but not limited to and based on the above HPI, review of systems and physical exam: Urinary tract infection. Appendicitis. Cholecystitis. Colitis. small bowel obstruction. crohn's flare. pancreatitis. gastritis. peptic ulcer. cyclic vomiting. Viral illness. Influenza. COVID. Orders placed to evaluate differential diagnosis based on the above differential, HPI and physical exam Lab Review: Laboratory results were reviewed and interpreted by myself the emergency room physician. No leukocytosis. No anemia. No renal failure. Platelets are normal. Hepatitis panel negative. CT of the abdomen pelvis: Gallstones but no evidence of cholecystitis. Cirrhotic appearing liver. No signs of cirrhosis on lab work he may have early fatty liver disease. This was reviewed and interpreted by myself the emergency room physician. I also reviewed the radiology report. Ultrasound of the gallbladder: Stones but no cholecystitis. This was reviewed and interpreted by myself the emergency room physician. I also reviewed the radiology report. I reviewed the patient's medical record. Reexamination: Patient remained stable. No increased work of breathing. No altered mental status. No focal motor deficits. No longer vomiting. Assessment and plan: Gastroenteritis Vomiting - Discharged home - Discussed plan with patient. Answered any questions. - Evaluation and treatment of this problem were appropriate in the emergency setting. Lab Data 02/13/25 04:37 02/13/25 04:37 Radiology Impressions Abdomen/Pelvis CT 02/13/25 05:25 IMPRESSION: 1. Multiple gallstones without evidence of cholecystistis. 2. Cirrhotic appearing liver. 3. Hepatosplenomegaly Gallbladder Ultrasound 02/13/25 05:25 IMPRESSION: 1. Cholelithiasis. 2. Mild hepatomegaly. 3. Hepatic steatosis. Laboratory Results WBC 8.83 10^3/uL (3.29-11.43) 02/13/25 04:37 RBC 3.76 10^6/uL (3.85-5.65) L 02/13/25 04:37 Hgb 11.80 g/dL (11.27-16.99) 02/13/25 04:37 Hct 35.1 % (37-53) L 02/13/25 04:37 MCV 93.4 fl (82-101) 02/13/25 04:37 MCH 31.4 pg (27-33) 02/13/25 04:37 MCHC 33.6 g/dL (30-55) 02/13/25 04:37 RDW 15.8 % (12.1-15.1) H 02/13/25 04:37 Plt Count 180 10^3/cmm (157-399) 02/13/25 04:37 MPV 9.6 fL (7.4-10.4) 02/13/25 04:37 Neut % (Auto) 70.1 % 02/13/25 04:37 Lymph % (Auto) 18.6 % 02/13/25 04:37 [place] % (Auto) 8.8 % 02/13/25 04:37 Eos % (Auto) 0.7 % 02/13/25 04:37 Baso % (Auto) 1.1 % 02/13/25 04:37 Neut # (Auto) 6.19 10^3/uL (1.8-7.7) 02/13/25 04:37 Lymph # (Auto) 1.6 10^3/uL (0.8-4.8) 02/13/25 04:37 [place] # (Auto) 0.8 10^3/uL (0.2-0.9) 02/13/25 04:37 Eos # (Auto) 0.1 10^3/uL (0.0-0.8) 02/13/25 04:37 Baso # (Auto) 0.1 10^3/uL (0.0-0.1) 02/13/25 04:37 Nucleated RBC % (auto) 0 % 02/13/25 04:37 Nucleated RBCs # 0.0 /100WBC 02/13/25 04:37 Sodium 136 mmol/L (136-145) 02/13/25 04:37 Potassium 3.1 mmol/L (3.5-5.1) L 02/13/25 04:37 Chloride 99 mmol/L (98-107) 02/13/25 04:37 Carbon Dioxide 18 mmol/L (22-29) L 02/13/25 04:37 Anion Gap 22.1 (5-19) H 02/13/25 04:37 BUN 11 mg/dL (8-23) 02/13/25 04:37 Creatinine 1.3 mg/dL (0.7-1.2) H 02/13/25 04:37 GFR Calculation 56.3 mL/min (90-130) L 02/13/25 04:37 Glucose 106 mg/dL (65-115) 02/13/25 04:37 Calculated Osmolality 282 mOsm/kg (285-295) L 02/13/25 04:37 Calcium 9.8 mg/dL (8.5-10.5) 02/13/25 04:37 Total Bilirubin 2.8 mg/dL (0.15-1.2) H 02/13/25 04:37 AST 119 U/L (0-40) H 02/13/25 04:37 ALT 49 U/L (0-41) H 02/13/25 04:37 Alkaline Phosphatase 285 U/L (40-130) H 02/13/25 04:37 Total Protein 7.5 g/dL (6.6-8.7) 02/13/25 04:37 Albumin 4.7 g/dL (3.5-5.2) 02/13/25 04:37 Globulin 2.8 g/dL (1.3-4.6) 02/13/25 04:37 Lipase 31 U/L (13-60) 02/13/25 04:37 Hepatitis A IgM Ab Non-reactive (Nonreactive) 02/13/25 04:37 Hep Bs Antigen Non-reactive (Nonreactive) 02/13/25 04:37 Hep B Core IgM Ab Non-reactive (Nonreactive) 02/13/25 04:37 Hepatitis C Antibody Non-reactive (Nonreactive) 02/13/25 04:37 All radiology interpretation(s) finalized by discharge Discharge Plan Discharge Patient Disposition: Home Clinical Impression: Gastroenteritis, Cholelithiasis, Fatty liver Condition: Stable Prescriptions: New ondansetron 8 mg tablet,disintegrating 8 mg PO Q6H Qty: 14 0RF Rx Instructions: Take 1/2-1 tab every 6 hours as needed for nausea and vomiting No Action hydrocodone-acetaminophen 10-325 mg tablet 1 tab PO Q4H PRN (Reason: Pain) tamsulosin 0.4 mg capsule 0.4 mg PO BID Qty: 60 12RF solifenacin [Vesicare] 5 mg tablet 5 mg PO DAILY Qty: 30 12RF aripiprazole [Abilify] 5 mg tablet 5 mg PO DAILY Qty: 90 3RF citalopram 40 mg tablet 40 mg PO BEDTIME Qty: 90 3RF tizanidine 4 mg tablet 4 mg PO BEDTIME levothyroxine 25 mcg tablet 25 mcg PO QAM doxycycline hyclate 100 mg tablet 100 mg PO BID buprenorphine-naloxone 2-0.5 mg tablet, sublingual 1 tab SUBLINGUAL BID mirabegron [Myrbetriq] 50 mg tablet extended release 24 hr 50 mg PO DAILY magnesium oxide 400 mg magnesium Tablet 400 mg PO DAILY metoprolol succinate 25 mg tablet extended release 24 hr 25 mg PO DAILY linezolid 600 mg tablet 600 mg PO BID Qty: 14 0RF furosemide 20 mg tablet 20 mg PO DAILY PRN (Reason: Edema) Qty: 1 0RF Rx Instructions: instruction change to PRN only Belsomra 20 mg tablet 10 mg PO BEDTIME PRN (Reason: Sleep) Qty: 1 0RF Rx Instructions: dose change Discharge Orders: Discharge ED (Routine); Ordered 10/18/25 Ordered By: Loreto Bishop Referrals: Raymond Woo MD [Primary Care Provider, Internal Medicine] Discharge Diet: Advance as tolerated Patient Instructions: Gallstones (ED), Gastroenteritis (ED), Acute Nausea and Vomiting (ED), Non-Alcoholic Fatty Liver Disease (ED), Opioid Safety, Pain Management, Patient Portal & Enoc Instructions Activity Restrictions/Additional Instructions: There are concerns for fatty liver and possibly even early cirrhosis on imaging. You need to follow-up with your primary provider concerning this. You have gallstones in your gallbladder. They are not currently a problem but may be at some point. You also need to follow-up with your primary provider about this Thank you for choosing [facility] for your healthcare needs today. You have been screened and evaluated and felt safe for discharge. Health conditions do change or evolve sometimes and as such it is important that you follow up with your Primary Doctor to be re checked, 3-5 days is a general good time frame for follow up. You are always welcome to return to the ED for re assessment if your symptoms are worsening or you have new concerns Print Language: Indonesian Coding Level of Care Code ED Manager Social for Magy Lee
[2025-02-13 04:56] LABS: Hematocrit 35.1 % (37-53); Hemoglobin 11.80 g/dL (11.27-16.99); Mean Corpuscular HGB Conc 33.6 g/dL (30-55); Mean Corpuscular Hemoglobin 31.4 pg (27-33); Mean Corpuscular Volume 93.4 fl (82-101); Nucleated Red Blood Cells % 0 %; Platelet Count 180 10^3/cmm (157-399); Red Blood Count 3.76 10^6/uL (3.85-5.65); White Blood Count 8.83 10^3/uL (3.29-11.43)
[2025-02-13] MEDS: ondansetron 2 mg/ML SDV 2 mL 4 MG IVP (05:00)
[2025-02-13] MEDS: morphine 4 mg/mL SDV 1 mL IVP (05:02)
[2025-02-13 05:04] VITALS: BP 134/76; PULSE 70; O2SAT 97
[2025-02-13 05:19] LABS: Alanine Aminotransferase 49 U/L (0-41); Albumin Level 4.7 g/dL (3.5-5.2); Alkaline Phosphatase 285 U/L (40-130); Anion Gap 22.1 (5-19); Aspartate Amino Transferase 119 U/L (0-40); Blood Urea Nitrogen 11 mg/dL (8-23); Calcium 9.8 mg/dL (8.5-10.5); Carbon Dioxide 18 mmol/L (22-29); Chloride 99 mmol/L (98-107); Globulin 2.8 g/dL (1.3-4.6); Glucose 106 mg/dL (65-115); Lipase 31 U/L (13-60); Osmolality Calculated 282 mOsm/kg (285-295); Potassium 3.1 mmol/L (3.5-5.1); Sodium 136 mmol/L (136-145); Total Protein 7.5 g/dL (6.6-8.7)
[2025-02-13 05:24] LABS: Creatinine Clr Calc Pharmacy 70.8708
--- NOTE | 2025-02-13 05:25 | USR_ITS ---
PROCEDURE INFORMATION: Exam: US Abdomen, Limited; Right Upper Quadrant Exam date and time: 02/13/2025 6:21 AM Age: 59 years old Clinical indication: Abdominal pain; Epigastric; Additional info: Abd pain TECHNIQUE: Imaging protocol: Real time ultrasound of the abdomen with image documentation. Limited exam focused on the right upper quadrant. COMPARISON: CT abdomen pelvis w con* [id number] 02/13/2025 5:31 AM FINDINGS: Liver: Hepatic steatosis. The liver measures 16.6 cm. Gallbladder: Gallstones are seen. No gallbladder wall thickening or pericholecystic fluid. Biliary ducts: Common bile duct measures 5 mm. Pancreas: Visualized pancreas is unremarkable. Right kidney: Right kidney measures 11 x 5.2 x 4.9 cm. Inferior vena cava: Visualized abdominal aorta and inferior vena cava are within normal limits. Portal venous: Main portal vein is patent with hepatopetal flow. US/US gall bladder [id number] IMPRESSION: 1. Cholelithiasis. 2. Mild hepatomegaly. 3. Hepatic steatosis.
--- NOTE | 2025-02-13 05:25 | CTR_ITS ---
PROCEDURE INFORMATION: Exam: CT Abdomen And Pelvis With Contrast Exam date and time: 02/13/2025 5:31 AM Age: 59 years old Clinical indication: Pain and abnormal findings; Abnormal lab test; Elevated liver enzymes; Nausea and vomiting; Abdominal pain; Generalized; Prior surgery; Surgery date: 6+ months; Surgery type: Tricuspid valve replacement. Appy. Penile implant. Lumbar laminectomy. Diffuse abd pain with n/v. Elevated lfts and bilirubin. TECHNIQUE: Imaging protocol: Computed tomography of the abdomen and pelvis with contrast. Radiation optimization: All CT scans at this facility use at least one of these dose optimization techniques: automated exposure control; mA and/or kV adjustment per patient size (includes targeted exams where dose is matched to clinical indication); or iterative reconstruction. Contrast material: OMNI 350; Contrast volume: 80 ml; Contrast route: INTRAVENOUS (IV); COMPARISON: CR XR hip LT 2-3V wo/w pel* [id number] 07/22/2018 3:33 PM RADIATION DOSE METRICS: Total DLP (mGy-cm): 725.38 FINDINGS: Liver: Liver has irregular edge. The liver measures 16.5 cm in length. Gallbladder and biliary ducts: Multiple gallstones without evidence of cholecystistis. Pancreas: Normal. No ductal dilation. Spleen: The spleen is enlarged measuring 13 cm. Adrenal glands: Normal. No mass. Kidneys and ureters: Normal. No hydronephrosis. Stomach and bowel: No small bowel loop dilatation. Appendix: Appendix is not visualized. Intraperitoneal space: Unremarkable. No free air. No significant fluid collection. Vasculature: Mild calcified atherosclerotic changes are seen throughout the abdominal aorta. Lymph nodes: Unremarkable. No enlarged lymph nodes. Urinary bladder: Unremarkable as visualized. Reproductive: Unremarkable as visualized. Bones/joints: Mild lumbar spine degenerative changes. Soft tissues: Penile implant CT/CT abdomen pelvis w con* [id number] IMPRESSION: 1. Multiple gallstones without evidence of cholecystistis. 2. Cirrhotic appearing liver. 3. Hepatosplenomegaly
[2025-02-13] MEDS: iohexol 350 mg/mL 500 mL Btl (per mL) IV (05:34)
[2025-02-13] MEDS: diphenhydrAMINE 50 mg/mL SDV 1mL 25 MG IVP (06:09)
[2025-02-13] MEDS: metoclopramide 5 mg/mL SDV 2 mL IVP (06:11)
[2025-02-13 06:29] VITALS: BP 127/79; PULSE 75; O2SAT 96
[2025-02-13 07:07] LABS: Hepatitis A Antibody IgM Non-Reactive (Nonreactive); Hepatitis B Surface Antigen Non-Reactive (Nonreactive)
[2025-02-13 08:04] VITALS: BP 121/54; PULSE 72; O2SAT 94
== END 2025-02-13 08:05 | disposition home or self-care (01) ==
PROVIDERS: Emergency Medicine; Emergency Provider Emergency Medicine; PCP Internal Medicine
DX: K52.9 Noninfective gastroenteritis and colitis, unspecified (principal); K80.20 Calculus of gallbladder without cholecystitis without obstruction; K76.0 Fatty (change of) liver, not elsewhere classified; Z95.0 Presence of cardiac pacemaker
CPT/HCPCS: 74177; 76705; 80053; 80074; 83690; 85025; 96374; 96375; 99285; J1200; J2270; J2405; J2765; J7030

== ENCOUNTER → 2025-03-10 10:28 | Outpatient (BNVA) | payer MEDICARE, MEDICAID, SELFPAY | PROVIDERS: PCP Internal Medicine; Visit Provider Surgery | DX: K82.9 Disease of gallbladder, unspecified (principal); Z45.02 Encounter for adjustment and management of automatic implantable cardiac defibrillator | CPT/HCPCS: 93296; 99204 ==

== ENCOUNTER → 2025-03-18 14:21 | Outpatient (BNVA) | payer MEDICARE, MEDICAID, SELFPAY | PROVIDERS: PCP Internal Medicine; Visit Provider Family Medicine | DX: K81.9 Cholecystitis, unspecified (principal) | CPT/HCPCS: 80053; 85025 ==

== ENCOUNTER 2025-03-26 06:01 | Outpatient (CLI) | payer MEDICARE, MEDICAID, SELFPAY ==
--- NOTE | 2025-03-26 06:15 | USCV_ITS ---
Benjamin Aquino Age: 59 Gender: M : 1965 Exam Date: 03/26/2025 06:19 Ordering Phys: Rubi Stephenson MD ([email or web address]) Technologist: Exam Location: [facility] [place] Indication: TR BP: 130 / 73 HR: Rhythm: Sinus Technical Quality: Adequate MEASUREMENTS (Male / Female) Normal Values 2D ECHO LV Diastolic Diameter PLAX 4.8 cm 4.2 - 5.9 / 3.9 - 5.3 cm IVS Diastolic Thickness 1.1 cm 0.6 - 1.0 / 0.6 - 0.9 cm IVS Systolic Thickness 1.8 cm LVPW Diastolic Thickness 1.1 cm 0.6 - 1.0 / 0.6 - 0.9 cm LVPW Systolic Thickness 1.7 cm LV Ejection Fraction 2D Teich 66.9 % LV Ejection Fraction MOD 4C 65.3 % LV Ejection Fraction MOD 2C 72.3 % LV Ejection Fraction 2C AL 71.5 % M-MODE LA Ao Ratio MM 1.2 AV Cusp Separation MM 2.3 cm DOPPLER MV Area PHT 0.4 cm squared TV Peak E Velocity 212.0 cm/s FINDINGS Left Ventricle Normal left ventricular size and systolic function, EF 67%. Abnormal septal motion consistent with conduction abnormality. Right Ventricle Possibly of normal size and ejection fraction. Right Atrium Markedly dilated right atrium. Left Atrium Patient QA normal size. IA Septum Normal interatrial septum. Mitral Valve Appears to be intact. Aortic Valve No gross abnormalities noted Tricuspid Valve Peak velocity across the tricuspid valve was 2.5 m/s with a peak gradient of 25 mmHg. The tricuspid valve valve area, by pressure half-time was found to be 0.36 cm squared.mild tricuspid valve regurgitation. Pulmonic Valve Pulmonic valve not well visualized. Pericardium No pericardial effusion. Aorta Normal aortic annulus size. IVC Normal inferior vena cava. CONCLUSIONS Normal left ventricular size and systolic function, EF 67%. Abnormal septal motion consistent with conduction abnormality. Features suggesting severe tricuspid valve stenosis (bioprosthetic valve? )with a valve area of 0.36 cm squared by pressure half-time. Peak velocity of 2.5 m/s; peak gradient of 25 mmHg . Mild tricuspid regurgitation Markedly dilated right atrium. Possibly normal RV size and ejection fraction Dr Rubi Stephenson MD FACC (Electronically Signed) Final Date: 29 March 2025 18:56 S
== END 2025-03-26 06:02 | disposition home or self-care (01) ==
LOC: RAD 06:02
PROVIDERS: PCP Internal Medicine; Visit Provider Internal Medicine Cardiovascular Disease
DX: I36.1 Nonrheumatic tricuspid (valve) insufficiency (principal); I51.89 Other ill-defined heart diseases; I51.7 Cardiomegaly
CPT/HCPCS: 93308

== ENCOUNTER → 2025-03-29 09:35 | Outpatient (BNVA) | payer MEDICARE, MEDICAID, SELFPAY | PROVIDERS: PCP Internal Medicine; Visit Provider Nurse Practitioner Family | DX: I49.8 Other specified cardiac arrhythmias (principal); Z95.0 Presence of cardiac pacemaker; K80.20 Calculus of gallbladder without cholecystitis without obstruction; Z95.2 Presence of prosthetic heart valve | CPT/HCPCS: 99214 ==

== ENCOUNTER 2025-03-30 05:38 | Day surgery (SDC) | payer MEDICARE, MEDICAID, SELFPAY ==
[2025-03-30] VITALS (11 sets, daily range): BP systolic 98–113; BP diastolic 53–70; PULSE 70–73; RESP 14–22; TEMP 36.6–37.1; O2SAT 92–100; BMI 23.7
--- NOTE | 2025-03-30 06:43 | P.HPUD_ITS ---
Surgery/Procedure H&P Update DATE OF PROCEDURE: March 30, 2025 DATE H&P PERFORMED: 03/10/25 H&P UPDATE INFORMATION: I have reviewed H&P completed within last 30 days, I have examined patient prior to procedure, No changes to prior documentation, H&P is in [facility] EMR on date indicated and Risks and benefits of the procedure reviewed PLANNED PROCEDURE: Operation Date: 03/30/25 07:00 Proposed Procedures p Laparoscopic POSSIBLE OPEN Cholecystectomy Lap Vidya [id number] K82.9(Not Applicable) - Hernandez Parker MD
--- NOTE | 2025-03-30 06:46 | ANES.PREANE2 ---
Pre-Anesthetic Assessment Height/Weight: Height 1.8 m Weight 77.111 kg Temp Pulse Resp BP Pulse Ox O2 Del Method 97.8 F 73 18 105/67 95 Room Air 03/30/25 05:59 03/30/25 05:59 03/30/25 05:59 03/30/25 05:59 03/30/25 05:59 03/30/25 05:59 Operation Date: 03/30/25 07:00 Proposed Procedures p Laparoscopic POSSIBLE OPEN Cholecystectomy Lap Vidya 09124 K82.9(Not Applicable) - Hernandez Parker MD Familial anesthetic complications: None Was Beta Uriel taken within 24 hours: N/A Was Clonidine taken within 24 hours: N/A Last intake: Intake Last Liquid Date 03/29/25 Last Liquid Time 22:00 Last Solid Date 03/29/25 Last Solid Time 18:00 Social No alcohol and No tobacco Exam alert, oriented x 3, clear to auscultation bilaterally and regular rate & rhythm CV/HEM AVR and TVR with tricuspid valve showing severe stenosis, echo only interpreted last night. Discussed results with Dr. Stephenson, on-call tool and die repair, per Сергей's note and patient report today he has very good functional status, no cardiac symptoms. Patient informed of results and will proceed to today given extreme weight loss and lack of symptoms, pacemaker VVIR Metabolic Thyroid Disease Anesthetic Plan ASA status: 3 Anesthesia: General Risk of > 500 ml blood loss (7ml/kg in children): No Medications/Allergies Home Medications ?Medication ?Instructions ?Recorded ?Confirmed ?Last Taken ?Type aripiprazole 5 mg tablet (Abilify) 5 mg PO DAILY #90 tabs 07/26/21 03/30/25 03/29/25 Rx citalopram 40 mg tablet 40 mg PO BEDTIME #90 tabs 10/02/21 03/30/25 03/29/25 Rx solifenacin 5 mg tablet (Vesicare) 5 mg PO DAILY #30 tabs 05/10/22 03/30/25 03/29/25 Rx Held on 01/14/25. Instructions: Resume on 01/16/25. tamsulosin 0.4 mg capsule 0.4 mg PO BID #60 caps 05/10/22 03/30/25 03/29/25 Rx levothyroxine 25 mcg tablet 25 mcg PO QAM 01/13/25 03/30/25 03/29/25 History metoprolol succinate 25 mg 25 mg PO DAILY 01/13/25 03/30/25 03/30/25 History tablet,extended release 24 hr mirabegron 50 mg tablet,extended 50 mg PO DAILY 01/13/25 03/30/25 03/29/25 History release 24 hr (Myrbetriq) tizanidine 4 mg tablet 4 mg PO BEDTIME 01/13/25 03/30/25 03/29/25 History furosemide 20 mg tablet 20 mg PO DAILY PRN Edema #1 tab 01/14/25 03/30/25 03/29/25 Rx suvorexant 20 mg tablet (Belsomra) 10 mg (1/2 x 20 mg) PO BEDTIME PRN 01/14/25 03/30/25 03/29/25 Rx Sleep #1 tab ondansetron 8 mg disintegrating 8 mg PO Q6H #14 tabs 02/13/25 03/30/25 Unknown Rx tablet Allergies Allergy/AdvReac Type Severity Reaction Status Date / Time isotretinoin (From Accutane) Allergy Severe ALGY-Swell Verified 03/29/25 10:18 Lip/Tongue/Throat Penicillins Allergy Severe ALGY-Anaphy Verified 03/29/25 10:18 laxis naproxen Allergy Intermediate ALGY-Rash Verified 03/29/25 10:18 nefazodone (From Serzone) Allergy Intermediate ADR/ALGY-Fl Verified 03/29/25 10:18 ushing influenza virus vaccine, Allergy Mild ADR-Vomitin Verified 03/29/25 10:18 specific g erythromycin base AdvReac Mild ADR-Vomitin Verified 03/29/25 10:18 g milk AdvReac Mild ADR-Dry Verified 03/29/25 10:18 Mucus Membranes eggs Allergy Mild ADR-Nausea Uncoded 03/29/25 10:18 Current Medications Generic Name Dose Route Start Last Admin Trade Name Freq PRN Reason Stop Dose Admin Sodium Chloride 1,000 mls @ 30 mls/hr 03/30/25 06:00 03/30/25 06:26 Sodium Chloride 0.9% IV 03/31/25 05:59 30 mls/hr .Q24H ROSETTA Administration PFSH Anesthesia Medical History Tricuspid valve regurgitation Atrial flutter by electrocardiogram Restless legs syndrome Insomnia, unspecified Acute meniscal tear of left knee Lower urinary tract symptoms Erectile dysfunction OAB (overactive bladder) Pacemaker Hypothyroidism, unspecified Surgical History S/P tricuspid valve replacement H/O arthroscopy of left knee S/P appendectomy History of heart valve repair History of tonsillectomy History of shoulder surgery Hx of decompressive lumbar laminectomy History of nasal septoplasty History of vasectomy History of esophagogastroduodenoscopy (EGD) Family History Mother , at age 80 Tick fever Dementia Father , at age 87 Heart disease Congestive heart failure (CHF) Stroke Family/Other Cancer Other Diabetes Denies family history of CAD (coronary artery disease) Clotting disorder Chronic kidney disease (CKD) Suicide Anesthesia complication Bleeding disorder Lung disease Social History Smoking and tobacco/nicotine status: never used tobacco/nicotine Alcohol intake: current Alcohol intake frequency: holidays/special occasions only Substance/Drug Use: never Adopted: No Caregiver/support person: No Lives independently: Yes Housing: House Marital status: Number of children: 1 Current occupational status: disabled Current gender identity: Male Data Anesthesia Cardiac Studies: Echocardiogram 10/06/24 Echocardiogram Limited Views 03/26/25
[2025-03-30] MEDS: BUPivacaine 0.25% INJ 10 mL INJECTION (07:40)
[2025-03-30] MEDS: lidocaine-epi 1% 20 mL INJ 10 ML INJECTION (07:41)
--- NOTE | 2025-03-30 08:12 | P.OP_ITS ---
Operative Report Date of procedure: March 30, 2025 Pre-op diagnosis: Symptomatic cholelithiasis Post-op diagnosis: Symptomatic cholelithiasis, cirrhosis of the liver Post-op findings: There were adhesions from the omentum to the liver, once this adhesions were taken down it was apparent that the labeled had a cirrhotic morphology, the gallbladder was completely covered by the gastrocolic omentum, did not appear to be inflamed, there was some small amount of free intraperitoneal clear fluid consistent with very minimal amount of ascites. Due to the finding of cirrhosis there was previously not known and after taking consideration the risks and the benefits of the procedure we have decided to abort until patient has completed workup for his liver disease and for a referral to higher level of care for hepatobiliary expertise Procedure done: Diagnostic laparoscopy Specimens removed/disposition: None Surgeon: Hernandez Parker MD [employer]ter: HIRA OR STaff Complications: None apparent Brief History: This is a 59-year-old male who presents to my office with symptomatic cholelithi asis right upper quadrant pain and nausea. After discussion we decided to proceed to the OR for a laparoscopic possible open cholecystectomy. Due to patient's significant medical history he underwent medical and cardiology clearance before proceeding. Procedure: Patient was brought into the OR, he was placed in a spine position. General anesthesia was given. The abdomen was prepped and draped in the usual sterile fashion and a timeout was conducted. The abdomen was accessed via a 5 mm trocar with Optiview technique in the left upper quadrant, initial pneumoperitoneum was obtained and no evidence of visceral injury during entry. Abdominal meter trocar was placed in the supraumbilical position under direct visualization and then 5 mm trocars were placed in the epigastrium right upper quadrant right flank under direct visualization. Patient was placed in a steep reverse Trendelenburg with the left side down. The liver morphology appeared to be cirrhotic but there was significant gastrocolic omentum adhesed to the edges of the liver therefore I decided to take down those adhesions to have a better look at the liver, once the adhesions were taken down with electrocautery I was able to clearly visualize a cirrhotic liver, the gallbladder was also cuff or completely by the gastrocolic omentum. The liver appeared friable even with mild manipulation there was some small amount of oozing and the liver was significantly stiff. At this point since we did not expected that the patient had cirrhosis of the liver I decided to postoperation to be able to talk to the family, I explained to the family that in the preop workup while the CT scan of the abdomen showed evidence of a possible cirrhotic morphology the ultrasound was normal only showing hepatic steatosis and therefore he was initiated on the clear liquid diet but after laparoscopy we can confirm that he does have liver cirrhosis, in the setting I think it will be risky to try to proceed with a cholecystectomy especially as this is new diagnosis and his previous of bleeding, intraoperative complications and even become significantly higher with liver cirrhosis. Family member agreed with the plan. As a next step I asked my colleague Dr. Izaguirre to step into the OR and take a look due to his additional expertise on hepatobiliary surgery. He concurs that the liver is cirrhotic and agrees that the best course of action at this point is to defer surgery to be done at higher level of care with additional expertise. At this point we terminated the operation, four-quadrant laparoscopy was completed with no other evidence of significant pathology. The millimeter trocar was removed and the trocar site was closed with 0 Vicryl with a Esteban-Nadya suture passer under direct visualization. I then proceeded to remove the epigastrium right upper quadrant right flank trocars under direct visualization, the left upper quadrant trocar was used to evacuate the pneumoperitoneum and subsequently removed. Hemostasis of the wounds was achieved. Local anesthesia infiltrated and the wounds were closed in layers using 3-0 Vicryl to the subcutaneous tissue and #4 Monocryl for the skin at the end of the procedure all counts were correct the patient tolerated well the procedure and was transferred to the PACU in stable condition
--- NOTE | 2025-03-30 09:55 | ANE.PACU2 ---
Inpatient post-anesthesia follow up: Airway intact: Yes Vital signs: Temperature 97.9 F Pulse Rate 70 Respiratory Rate 18 Blood Pressure 113/70 Pulse Oximetry 95 Oxygen Delivery Me thod Room Air Oxygen Flow Rate 10 Fraction of Inspir ed Oxygen Hydration adequate: Yes Nausea and vomiting: No Pain level: 1 Mental status: Baseline
== END 2025-03-30 09:55 | disposition home or self-care (01) ==
PROVIDERS: PCP Internal Medicine; Visit Provider Surgery
PROC: (CPT 49320; principal; 2025-03-30 07:00)
DX: K80.80 Other cholelithiasis without obstruction (principal); K74.60 Unspecified cirrhosis of liver; I07.1 Rheumatic tricuspid insufficiency; Z95.0 Presence of cardiac pacemaker; E03.9 Hypothyroidism, unspecified
CPT/HCPCS: 49320; J0131; J1100; J1885; J2250; J2371; J2405; J2704; J3010; J3490; J7030; J9999

== ENCOUNTER → 2025-04-14 08:28 | Outpatient (BNVA) | payer MEDICARE, MEDICAID, SELFPAY | PROVIDERS: PCP Internal Medicine; Visit Provider Surgery | DX: K74.60 Unspecified cirrhosis of liver (principal); Z98.890 Other specified postprocedural states | CPT/HCPCS: 99024 ==